=== PATIENT | female | born 1945 | race Caucasian/White ===

== ENCOUNTER → 2020-02-21 07:50 | Outpatient (CLI) | payer MEDICARE, SELFPAY ==
--- NOTE | ~2020-02-21 | MR_ITS ---
EXAMINATION: MR cervical spine wo con DATE: 02/21/2020 08:39 INDICATION: Bilateral arm and leg weakness. Chronic neck pain. TECHNIQUE: Magnetic resonance imaging (MRI) of the cervical spine was performed without intravenous c ontrast. Sequences included sagittal T2-weighted FSE, sagittal T2-weighted FS FSE, sagittal T1-weight ed FSE, axial MERGE and axial T2-weighted FSE. COMPARISON: Cervical spine radiographs dated 10/12/2003 FINDINGS: Bone alignment is normal. Vertebral body heights are normal. Schmorl's node along the superior endpl ate of T7. On the inferior endplate of C2 and at both sides of the C4-C5 disc space. Moderate disc he ight loss at C4-C5 and C5-C6. Mild disc height loss at C3-C4. Fibrovascular degenerative endplate partha nges Cord signal intensity is normal. Cervical soft tissues are unremarkable. The following disc leve ls are specifically discussed: C2-C3: The disc does not extend beyond the endplate margin. There is no uncovertebral joint osteoarth ritis. There is minimal bilateral facet joint osteoarthritis. There is no neural foraminal stenosis. There is no central canal stenosis. C3-C4: Symmetric to the right disc osteophyte complex. There is mild left and moderate right uncovert ebral joint osteoarthritis. There is mild bilateral facet joint osteoarthritis. There is mild left an d moderate right neural foraminal stenosis. There is mild central canal stenosis with flattening of t he right ventral surface of the cord. C4-C5: Disc osteophyte complex. There is severe bilateral uncovertebral joint osteoarthritis. There i s mild bilateral facet joint osteoarthritis. There is moderate bilateral neural foraminal stenosis. T here is moderate central canal stenosis measuring 7-8 mm AP in the mid sagittal plane and indenting t he ventral surface of the cord with effacement of the surrounding CSF signal. C5-C6: Disc osteophyte complex. There is severe bilateral uncovertebral joint osteoarthritis. There i s mild bilateral facet joint osteoarthritis. There is moderate left and moderate to severe right neur al foraminal stenosis. There is mild central canal stenosis measuring 9-10 mm AP in the mid sagittal plane with flattening of the left ventral surface of the cord. C6-C7: Disc is bulging. There is moderate right and mild left uncovertebral joint osteoarthritis. The re is mild bilateral facet joint osteoarthritis. There is mild right and minimal left neural foramina l stenosis. There is mild central canal stenosis. C7-T1: The disc does not extend beyond the endplate margin. There is no uncovertebral joint osteoarth ritis. There is mild right and moderate left facet joint osteoarthritis. There is mild bilateral neur al foraminal stenosis. There is no central canal stenosis. IMPRESSION: 1. Moderate cervical spondylosis. Reviewed, dictated and finalized at location A.
== END ==
PROVIDERS: PCP Family Medicine; Visit Provider Psychiatry & Neurology Neurology
DX: M47.812 Spondylosis without myelopathy or radiculopathy, cervical region (principal)
CPT/HCPCS: 72141

== ENCOUNTER 2020-02-29 09:45 | Observation (INO) | payer MEDICARE, SELFPAY ==
[2020-02-29] VITALS (17 sets, daily range): BP systolic 144–187; BP diastolic 47–66; PULSE 46–72; RESP 14–16; TEMP 36.6–36.9; O2SAT 99–100; BMI 22.5
--- NOTE | ~2020-02-29 | XR_ITS ---
EXAMINATION: XR small bowel follow through DATE: 03/02/2020 12:58 INDICATION: Iron deficiency anemia TECHNIQUE: [employer] radiograph(s) of the abdomen was/were obtained. Oral contrast was administered, and sequential radiographs of the abdomen were obtained until oral contrast was noted to be in the proxi mal colon. Spot fluoroscopic images of the small bowel were obtained. Fluoroscopy exposure time was 3 .0 minutes. The DAP for this procedure was 28.5 Gycm2. COMPARISON: None. FINDINGS: [employer] radiograph demonstrates a vascular stent in the right common iliac vessel. Cholecyste ctomy clips are noted in the right upper quadrant. The bowel gas pattern is normal. Transit time from the stomach to proximal colon was approximately 1.5 hours. There appears to be wall thickening and m ild stricturing of the terminal ileum. There is otherwise normal caliber and mucosal fold pattern thr oughout the small bowel. No tethering or abnormal mass effect observed upon the small bowel with real -time fluoroscopy. IMPRESSION: 1. Possible wall thickening and mild stricturing of the terminal ileum. Reviewed, dictated and finalized at location A.
[2020-02-29 10:09] LABS: Basophils Percent Auto 0.6 % (0.2-1.2); Eosinophils Percent Auto 0.4 % (0-4.4); Hematocrit 23.1 % (37.0-47.0); Hemoglobin 6.1 g/dL (12.0-15.0); Immature Granulocyte Absolute 0.02 K/mm3 (0.00-0.031); Immature Granulocyte Percent A 0.4 % (0-0.5); Immature Platelet Fraction Pct 3.5 % (0.9-11.2); Lymphocytes Absolute Auto 0.58 K/mm3 (0.9-3.2); Lymphocytes Percent Auto 10.8 % (18.3-44.2); Mean Corpuscular HGB Conc 26.4 g/dl (32-36); Mean Corpuscular Hemoglobin 15.8 pg (26-34); Mean Corpuscular Volume 59.7 fl (80-100); Mean Platelet Volume 9.8 fl (7.4-10.4); Monocytes Absolute Auto 0.4 K/mm3 (0.1-0.6); Neutrophils Absolute Auto 4.3 K/mm3 (1.3-6.7); Neutrophils Percent Auto 79.8 % (45.5-73.1); Platelet Count Result 384 k/mm3 (150-375); Red Blood Count 3.87 M/mm3 (4.2-5.4); Red Cell Distribution Width 21.4 % (11.5-14.5); White Blood Count 5.4 K/mm3 (4.5-10.0)
[2020-02-29 10:18] LABS: Helmet Cells 1+ (NORMAL); Hypochromasia 3+ (NORMAL); Ovalocytes 1+ (NORMAL); Polychromasia 1+ (NORMAL); Tear Drop Cells 1+ (NORMAL)
[2020-02-29 10:22] LABS: Alanine Aminotransferase 9 U/L (4-35); Albumin Level 3.8 g/dL (3.5-5.1); Alkaline Phosphatase 63 U/L (38-126); Anion Gap 8 mmol/L (8-16); Aspartate Amino Transferase 26 U/L (14-36); Bilirubin,Total 0.6 mg/dL (0.2-1.3); Blood Urea Nitrogen 12 mg/dL (7-17); Calcium 8.4 mg/dL (8.4-10.2); Carbon Dioxide 21 mmol/L (22-30); Chloride 109 mmol/L (98-107); Estimated CRCL calculation 61 ml/min; Estimated Glomerular Filt Rate > 60; Glucose 139 mg/dL (65-105); INR 1.3; Potassium 4.1 mmol/L (3.4-5.0); Prothrombin Time 15.5 Seconds (11.1-14.7); Sodium 138 mmol/L (137-145)
[2020-02-29 10:23] LABS: Partial Thromboplastin Time 29.8 SECONDS (22.3-36.8)
--- NOTE | 2020-02-29 11:03 | ED.RECABL ---
HPI - Recheck/Abnormal Lab/Rx General Chief Complaint: Recheck/Abnormal Lab/Rx <Celine Pulido PA-C - Last Filed: 02/29/20 12:23> Stated Complaint: low hemoglobin <Celine Pulido PA-C - Last Filed: 02/29/20 12:23> Time Seen by Provider: 02/29/20 10:20 <BEATRICE Lombardo Last Filed: 02/29/20 12:23> Source: patient <Celine Pulido PA-C - Last Filed: 02/29/20 12:23> Mode of arrival: ambulatory <BEATRICE Lombardo Last Filed: 02/29/20 12:23> Limitations: no limitations <Celine Pulido PA-C - Last Filed: 02/29/20 12:23> History of Present Illness HPI narrative: Patient presents with chief complaint of reevaluation of her lab work after her primary care told her that her blood levels were extremely low after having blood work done at [facility] yesterday. Patient's primary care order the blood work because the patient has had diarrhea for the past 2 to 3 weeks with unknown cause. Patient states for 4 days her stools were very dark and heavy but she took Pepto-Bismol so she thought that could possibly be the cause of the darkness. She states that her primary care ordered a stool culture but she is unsure of the result. Patient denies being on any recent antibiotics. Patient states she has also noted over the past 3 weeks she has had fatigue with exertion. She states she can typically mow her lawn and do her housework to completion but she has been having to take breaks in between. Patient denies shortness of breath or chest pain. Patient denies any fever, chills, nausea, vomiting, diarrhea. Patient denies any wounds, injuries or other known sources of infection. She reports she has occasional GI upset for which she takes pantoprazole 40 mg daily. She denies any nausea, vomiting or abdominal pain. Patient reports that the diarrhea was triggered every time she ate or drank something. Patient is on Plavix as she had stent placed in her right iliac in the early part of the year. <Celine Pulido PA-C - Last Filed: 02/29/20 12:23> Related Data Home Medications: Home Medications Medication Instructions Recorded Confirmed alprazolam 0.25 mg PO DAILY 02/29/20 clopidogrel 75 mg PO DAILY 02/29/20 ezetimibe 10 mg PO DAILY 02/29/20 levothyroxine 88 mcg PO DAILY 02/29/20 lisinopril 20 mg PO DAILY 02/29/20 pantoprazole 40 mg PO DAILY 02/29/20 rosuvastatin 20 mg PO DAILY 02/29/20 <Celine Pulido PA-C - Last Filed: 02/29/20 12:23> Allergies/Adverse Reactions: Allergies Allergy/AdvReac Type Severity Reaction Status Date / Time No Known Allergies Allergy Unknown Verified 02/29/20 09:52 <Celine Pulido PA-C - Last Filed: 02/29/20 12:23> Review of Systems Review of Systems: Narrative: CONSTITUTIONAL: Reports fatigue with exertion denies fever, chills, or sweats. EYES: Denies visual changes, redness, or discharge. ENT: Denies rhinorrhea, congestion, sore throat, or otalgia. CARDIOVASCULAR: Denies chest pain, palpitations, or edema. RESPIRATORY: Denies cough or dyspnea. GASTROINTESTINAL: Reports diarrhea denies abdominal pain, nausea, vomiting GENITOURINARY: Denies dysuria or hematuria. SKIN: Denies rash or itching. MUSCULOSKELETAL: Denies back pain, joint pain, or myalgia. NEUROLOGIC: Denies headache, numbness, dizziness <Celine Pulido PA-C - Last Filed: 02/29/20 12:23> Exam Narrative: Exam Narrative: GENERAL: Well-appearing, well-nourished, and in no acute distress. Patient speaking in complete sentences and does not appear pale or toxic in appearance. HEAD: Normocephalic, atraumatic. EYES: PERRLA and EOMI. ENT: Nares clear, no rhinorrhea or epistaxis. Mucous membranes moist. Oropharynx without tonsillar hypertrophy exudate or other lesions. Bilateral TMs pearly alberts nonbulging NECK: Supple. No adenopathy or masses. CHEST: Clear to auscultation. No respiratory distress. No wheezes rales or rhonchi. No tachypnea or labored breathing. HEART: Regular rate and
--- NOTE | 2020-02-29 11:16 | PC.NURSE ---
Patient tolerated orthostatic vitals well.
[2020-02-29] MEDS: PANTOPRAZOLE SODIUM IV 40 MG VIAL IV PUSH (11:54)
[2020-02-29] MEDS: SODIUM CHLORIDE 0.9% IV 1,000 ML 125 ML IV CONT (11:54)
[2020-02-29 12:00] LABS: Add Urine Microscopic? YES; Appearance Urine Clear (Clear); Bilirubin Urine Negative (Negative); Blood Urine Negative (Negative); Color Urine Yellow (Yellow); Glucose Urine UA Negative (Negative); Ketones Urine Negative (Negative); Leukocyte Esterase Ur Negative LEU/UL (Negative); Nitrate Urine Negative (Negative); Protein Urine Negative (Negative); RBC Urine 0-2 /hpf (0-2); Specific Grav Ur 1.015 (1.001-1.035); Squamous Epithelial Cell Urine Rare /hpf (Few); WBC Urine 0-3 /hpf
--- NOTE | 2020-02-29 12:10 | PC.NURSE ---
This patient, Siobhan Solomon, was admitted to [facility] Surg Room 313-01. Patient/family oriented to hospital policies and general routines including ID bracelet, bed and alarms, visiting hours, pain management, procedures, bathroom and other care routines, personal items, smoking policy, room service/diet, and visiting hours. Valuables list has been completed. Report received from Nafisa TAYLOR. Information on how to activate the Rapid Response Team has been discussed. Patient/Family are encouraged to report perceived risks to care and to ask questions if they do not understand what they are told or what they should do.
[2020-02-29] MEDS: SODIUM CHLORIDE 0.9% IV 250 ML 30 ML IV CONT (13:04)
--- NOTE | 2020-02-29 22:00 | PM.IMHP ---
H&P: HPI History of Present Illness Date/Time: 02/29/20 22:00 Chief complaint: Anemia of unknown cause Narrative: This is a pleasant 74 year old female with known history of peripheral vascular disease, HTN, hyperlipidemia who presented to the hospital after being referred by her PCP to have her labs checked. The patient has been seeing her PCP secondary to 3 weeks of diarrhea that initially started out as 4 days of severe diarrhea which improved with antidiarrheal agents but has continued. She has had stool studies done at her PCPs office and she was referred to the hospital after they found on routine labs that her H/H were low. The patient has felt fatigued, generalized weakness, and lightheaded but she had attributed these symptoms to her ongoing diarrhea. She has not been on antibiotics recently and denies any vomiting, black stools, or bright red rectal bleeding. She takes aspirin and plavix but no blood thinners. The patient was evaluated in the ER today and found to have an H/H of 6.1 and 23.1. She has already been transfused 2 units of pRBCs and on my encounter with her she states that she already feels much better. She has no other complaints at this time and denies any chest pain, shortness of breath, passing out, dizziness, headache, fevers, cough, abdominal pain, dysuria, or focal neurological deficits. She has no previous history of GI bleeding. Her last endoscopy was 10 years ago and her last colonoscopy was 3 years ago. Review of Systems Review of Systems: All systems reviewed & are unremarkable except as noted in HPI and below PMFSH Past Medical History Medical History HTN (hypertension) with goal to be determined Hyperlipidemia Hypothyroidism Peripheral vascular disease Surgical History Surgical History History of laparoscopic cholecystectomy Family History Family History Mother Liver cancer Father Alcohol abuse Cardiovascular disease Social History Social History Smoking packs per day: 0.25 Smoking cigarettes per day: 5.0 Years smoked: 55 Smoking pack-years: 13.75 Smoking status: Current every day smoker Tobacco type: cigarettes Second hand tobacco smoke exposure: Yes Alcohol intake: never Substance use: never Gender identity (if verbalized by the patient): Male Spiritual care concerns: No Meds Home Medications and Allergies Home Medications Medication Instructions Recorded Confirmed Type alprazolam 0.25 mg PO DAILY 02/29/20 02/29/20 History clopidogrel 75 mg PO DAILY 02/29/20 02/29/20 History ezetimibe 10 mg PO DAILY 02/29/20 02/29/20 History levothyroxine 88 mcg PO DAILY 02/29/20 02/29/20 History lisinopril 20 mg PO DAILY 02/29/20 02/29/20 History pantoprazole 40 mg PO DAILY 02/29/20 02/29/20 History rosuvastatin 20 mg PO DAILY 02/29/20 02/29/20 History Allergies Allergy/AdvReac Type Severity Reaction Status Date / Time No Known Allergies Allergy Unknown Verified 02/29/20 09:52 Vital Signs Vital Signs - 24 hr 02/29/20 09:47 02/29/20 11:06 02/29/20 11:16 Temperature 36.6 C Pulse Rate 60 60 72 Respiratory Rate 16 14 Blood Pressure 173/49 H 144/53 H 158/52 H Pulse Oximetry 100 100 02/29/20 11:42 02/29/20 12:00 02/29/20 12:10 Temperature 36.9 C 36.8 C Pulse Rate 54 L 60 52 L Respiratory Rate 16 16 16 Blood Pressure 156/53 H 144/53 H 187/47 H Pulse Oximetry 99 100 100 02/29/20 13:10 02/29/20 13:25 02/29/20 14:25 Temperature 36.9 C 36.9 C 36.8 C Pulse Rate 55 L 51 L 53 L Respiratory Rate 16 16 16 Blood Pressure 158/47 H 170/60 H 170/62 H Pulse Oximetry 100 100 100 02/29/20 15:25 02/29/20 16:00 02/29/20 16:24 Temperature 36.8 C 36.8 C 36.8 C Pulse Rate 50 L 49 L 49 L Respiratory Rate 16 16 16 Blood Pressure 170/6
[2020-02-29 22:20] LABS: Hematocrit 29.5 % (37.0-47.0); Hemoglobin 8.7 g/dL (12.0-15.0)
[2020-02-29] MEDS: SODIUM CHLORIDE 0.9% IV 1,000 ML 100 ML IV CONT (23:38)
[2020-03-01] MEDS: LEVOTHYROXINE SODIUM 88 MCG TABLET PO (05:50)
[2020-03-01 06:00] VITALS: BP 173/60; PULSE 54; RESP 16; TEMP 36.2; O2SAT 97
[2020-03-01] MEDS: SODIUM CHLORIDE 0.9% IV 1,000 ML 100 ML IV CONT ×2 (06:00→18:33)
[2020-03-01 07:06] LABS: Basophils Percent Auto 0.8 % (0.2-1.2); Eosinophils Absolute Auto 0.1 K/mm3 (0-0.3); Eosinophils Percent Auto 1.7 % (0-4.4); Hematocrit 30.9 % (37.0-47.0); Hemoglobin 9.1 g/dL (12.0-15.0); Immature Granulocyte Absolute 0.01 K/mm3 (0.00-0.031); Immature Granulocyte Percent A 0.2 % (0-0.5); Immature Platelet Fraction Pct 3.4 % (0.9-11.2); Lymphocytes Absolute Auto 0.65 K/mm3 (0.9-3.2); Lymphocytes Percent Auto 12.5 % (18.3-44.2); Mean Corpuscular HGB Conc 29.4 g/dl (32-36); Mean Corpuscular Hemoglobin 19.4 pg (26-34); Mean Corpuscular Volume 65.9 fl (80-100); Monocytes Absolute Auto 0.5 K/mm3 (0.1-0.6); Monocytes Percent Auto 8.6 % (2.6-8.5); Neutrophils Percent Auto 76.2 % (45.5-73.1); Platelet Count Result 298 k/mm3 (150-375); Red Blood Count 4.69 M/mm3 (4.2-5.4); Red Cell Distribution Width 27.5 % (11.5-14.5); White Blood Count 5.2 K/mm3 (4.5-10.0)
[2020-03-01 07:12] LABS: Anion Gap 4 mmol/L (8-16); Blood Urea Nitrogen 9 mg/dL (7-17); Calcium 8.1 mg/dL (8.4-10.2); Carbon Dioxide 23 mmol/L (22-30); Chloride 113 mmol/L (98-107); Estimated CRCL calculation 53 ml/min; Estimated Glomerular Filt Rate > 60; Glucose 81 mg/dL (65-105); Lactate Dehydrogenase 256 U/L (313-618); Potassium 4.2 mmol/L (3.4-5.0); Sodium 140 mmol/L (137-145)
[2020-03-01 07:21] LABS: Immature Reticulocyte Fraction 7.1 % (3.0-15.9); Reticulocyte Hemoglobin Conten 15.4 pg (28.2-35.7); Reticulocyte Percent 0.39 % (0.7-4.3); Reticulocytes Absolute 0.02 B/L (32.2-175.7)
[2020-03-01 08:03] LABS: Platelet Estimate Adequate (Adequate)
[2020-03-01 08:04] LABS: Anisocytosis 1+ (NORMAL); Helmet Cells 1+ (NORMAL); Hypochromasia 2+ (NORMAL); Ovalocytes 2+ (NORMAL); Target Cells 1+ (NORMAL); Tear Drop Cells 1+ (NORMAL)
[2020-03-01 08:06] LABS: Iron 32 ug/dL (37-170)
[2020-03-01 08:16] LABS: Percent Iron Saturation 8 % (20-50)
[2020-03-01 08:17] LABS: Folic Acid 10.9 ng/mL (2.76->20)
[2020-03-01] MEDS: lisinopriL 20 MG TABLET PO (08:27)
[2020-03-01] MEDS: ALPRAZolam 0.25 MG TABLET PO (08:27)
[2020-03-01] MEDS: EZETIMIBE 10 MG TABLET PO (08:27)
[2020-03-01] MEDS: PANTOPRAZOLE 40 MG TABLET PO (08:27)
[2020-03-01] MEDS: ROSUVASTATIN 10 MG TABLET 20 MG PO (08:28)
[2020-03-01 08:42] LABS: Ferritin 6.34 ng/mL (11.1-264)
--- NOTE | 2020-03-01 10:11 | WPDGICN ---
Assessment and Plan Assessment and plan (1) GALINA (iron deficiency anemia): Code(s): D50.9 - Iron deficiency anemia, unspecified Status: Acute Assessment and Plan: Patient with profound iron deficiency anemia. No obvious GI bleeding identified. Plan is to guaiac stools. Iron replacement will be started after endoscopy. Colonoscopy anticipated tomorrow after preparation today. Further recommendations subsequently. Continue monitor hemoglobin while an inpatient. (2) Diarrhea: Qualifiers: Diarrhea type: unspecified type Qualified Code(s): R19.7 - Diarrhea, unspecified Code(s): R19.7 - Diarrhea, unspecified Status: Chronic Assessment and Plan: Ongoing diarrhea for 3 weeks. Etiology unclear. Stool cultures advised. Continue to monitor intake and output. Colonoscopy will assess for diarrhea as well. GI Consult Note Consult date/time: 03/01/20 10:11 HPI: Siobhan Solomon is a 74 year old female Seen in evaluation at the request of the emergency room. Patient reports diarrhea for the last several weeks period is been an ongoing issue. Apparently had routine lab testing found to have anemia. Patient denies any obvious blood loss. Her current weight appetite are normal. Loose stools has persisted for at least 3 weeks. She denies any bruising no blood in her urine no nose bleeds. Her stools are normal color. Last colonoscopy was perhaps 10 years ago. She does note occasional epigastric discomfort. In occasional dysphagia with food can't she in this area. Family history is noncontributory. Review of Systems Review of Systems: All systems reviewed & are unremarkable except as noted in HPI and below PMFSH Past Medical History Medical History HTN (hypertension) with goal to be determined Hyperlipidemia Hypothyroidism Peripheral vascular disease Surgical History Surgical History History of laparoscopic cholecystectomy Family History Family History Mother Liver cancer Father Alcohol abuse Cardiovascular disease Social History Social History Smoking packs per day: 0.25 Smoking cigarettes per day: 5.0 Years smoked: 55 Smoking pack-years: 13.75 Smoking status: Current every day smoker Tobacco type: cigarettes Second hand tobacco smoke exposure: Yes Alcohol intake: never Substance use: never Gender identity (if verbalized by the patient): Male Spiritual care concerns: No Meds Home Medications and Allergies Home Medications Medication Instructions Recorded Confirmed Type alprazolam 0.25 mg PO DAILY 02/29/20 02/29/20 History clopidogrel 75 mg PO DAILY 02/29/20 02/29/20 History ezetimibe 10 mg PO DAILY 02/29/20 02/29/20 History levothyroxine 88 mcg PO DAILY 02/29/20 02/29/20 History lisinopril 20 mg PO DAILY 02/29/20 02/29/20 History pantoprazole 40 mg PO DAILY 02/29/20 02/29/20 History rosuvastatin 20 mg PO DAILY 02/29/20 02/29/20 History Allergies Allergy/AdvReac Type Severity Reaction Status Date / Time No Known Allergies Allergy Unknown Verified 02/29/20 09:52 Vital Signs Vital Signs - 24 hr 02/29/20 11:06 02/29/20 11:16 02/29/20 11:42 Temperature 98.4 F Pulse Rate 60 72 54 L Respiratory Rate 14 16 Blood Pressure 144/53 H 158/52 H 156/53 H Pulse Oximetry 100 99 02/29/20 12:00 02/29/20 12:10 02/29/20 13:10 Temperature 98.3 F 98.4 F Pulse Rate 60 52 L 55 L Respiratory Rate 16 16 16 Blood Pressure 144/53 H 187/47 H 158/47 H Pulse Oximetry 100 100 100 02/29/20 13:25 02/29/20 14:25 02/29/20 15:25 Temperature 98.5 F 98.3 F 98.3 F Pulse Rate 51 L 53 L 50 L Respiratory Rate 16 16 16 Blood Pressure 170/60 H 170/62 H 170/64 H Pulse Oximetry 100 100 100 02/29/20 16:00 02/29/20 16:24
[2020-03-01] MEDS: PEG (High)/E-LYTE SOLN 4,000 ML BTL 4000 ML PO (12:35)
[2020-03-01] MEDS: CYANOCOBALAMIN INJ 1,000 MCG/ML VIAL 1000 MCG IM (12:35)
[2020-03-01] MEDS: LACTATED RINGERS 1,000 ML 150 ML IV CONT (12:42)
[2020-03-01 14:00] VITALS: BP 130/62; PULSE 60; RESP 18; TEMP 36.7; O2SAT 98
[2020-03-01 20:00] VITALS: PULSE 60; RESP 18; O2SAT 98
[2020-03-01 22:00] VITALS: BP 165/65; PULSE 47; RESP 16; TEMP 36.6; O2SAT 94
--- NOTE | 2020-03-01 22:28 | PM.IMPN ---
Progress Note: A&P Assessment and Plan (1) Symptomatic anemia: Code(s): D64.9 - Anemia, unspecified Status: Acute Assessment and Plan: Holding antiplatelet agents. The patient has already been transfused 2 units of pRBC s. iron studies compatible with iron deficiency anemia and has microcytosis. But B12 is also low and will replenish IV iron 300 mg daily for 3 days EGD and colonoscopy 03/02. (2) Diarrhea: Qualifiers: Diarrhea type: unspecified type Qualified Code(s): R19.7 - Diarrhea, unspecified Code(s): R19.7 - Diarrhea, unspecified Status: Chronic Assessment and Plan: The patient has had diarrhea for the past 3 weeks. She reports that her PCP has already tested her for C. diff colitis. Check stool culture, stool WBC. IV fluids. and GI evaluating (3) Thrombocytosis: Code(s): D47.3 - Essential (hemorrhagic) thrombocythemia Status: Acute Assessment and Plan: Monitor platelets. (4) HTN (hypertension) with goal to be determined: Code(s): I10 - Essential (primary) hypertension Status: Chronic Assessment and Plan: Resume lisinopril. and bp good today (5) Hyperlipidemia: Qualifiers: Hyperlipidemia type: unspecified Qualified Code(s): E78.5 - Hyperlipidemia, unspecified Code(s): E78.5 - Hyperlipidemia, unspecified Status: Chronic Assessment and Plan: Continue Crestor PO. (6) Hypothyroidism: Qualifiers: Hypothyroidism type: unspecified Qualified Code(s): E03.9 - Hypothyroidism, unspecified Code(s): E03.9 - Hypothyroidism, unspecified Status: Chronic Assessment and Plan: Continue Levothyroxine PO. (7) Peripheral vascular disease: Code(s): I73.9 - Peripheral vascular disease, unspecified Status: Chronic Assessment and Plan: Resume antiplatelet agents when appropriate. Subjective Date/time seen: 03/01/20 22:28 Interval history: date of visit 03/01. 74-year-old hypertensive white female admitted with some fatigue and iron deficiency anemia. Has had diarrhea recently that has improved but no evidence of any blood loss. seen by GI and EGD and colon Scheduled for a.m. 03/02 Exam Narrative: Exam Narrative: blood pressure 130/62 pulse 62 saturating 98% on room air afebrile pupil equal reactive to light sclera anicteric neck supple no adenopathy lungs clear CV regular rate rhythm abdomen soft nontender extremities without edema distal pulses 1+ neuro alert cooperative pleasant no focal deficits Objective Data Vital Signs Vital Signs: Vital Signs - 24 hr 03/01/20 06:00 03/01/20 14:00 03/01/20 20:00 Temperature 36.2 C L 36.7 C Pulse Rate 54 L 60 60 Respiratory Rate 16 18 18 Blood Pressure 173/60 H 130/62 Pulse Oximetry 97 98 98 Intake/Output Intake/Output: Intake & Output 02/27/20 02/28/20 02/29/20 03/01/20 23:59 23:59 23:59 23:59 Intake Total 1271 2470 Output Total 3100 Balance 1271 -630 Meds/Results Medications: Active Medications Generic Name Dose Route Start Last Admin Trade Name Freq PRN Reason Stop Dose Admin Alprazolam 0.25 mg 03/01/20 09:00 03/01/20 08:27 Xanax PO 0.25 mg DAILY JOHN Administration Ezetimibe 10 mg 03/01/20 09:00 03/01/20 08:27 Zetia PO 10 mg DAILY JOHN Administration Hydralazine HCl 10 mg 02/29/20 21:58 Apresoline Hcl Inj IV PUSH 03/02/20 07:00 Q8H PRN see comment Iron Sucrose 300 mg/ Sodium 115 mls @ 76.667 mls/hr 03/01/20 09:45 03/01/20 10:53 Chloride IVPB 03/03/20 10:00 76.7 mls/hr DAILY JOHN Administration Lactated Ringer's 1,000 mls @ 150 mls/hr 03/01/20 11:00 03/01/20 18:36 Lr - Lactated Ringers Iv IV CONT 150 mls/hr .[id number] JOHN Infusion Levothyroxine Sodium 88 mcg 03/01/20 06:30 03/01/20 05:50 Synthroid PO 88 mcg DAILY@0630 JOHN Administration Lisinopril 20 mg 03/01/20 09:00 03/01/20 08:27
[2020-03-02] VITALS (8 sets, daily range): BP systolic 120–181; BP diastolic 42–97; PULSE 45–76; RESP 16–24; TEMP 36.6–36.9; O2SAT 93–99; BMI 22.5
[2020-03-02] MEDS: LACTATED RINGERS 1,000 ML 150 ML IV CONT ×2 (04:17→08:06)
[2020-03-02 06:51] LABS: Basophils Absolute Auto 0.1 K/mm3 (0.0-0.1); Basophils Percent Auto 0.7 % (0.2-1.2); Eosinophils Absolute Auto 0.1 K/mm3 (0-0.3); Eosinophils Percent Auto 1.4 % (0-4.4); Hematocrit 31.8 % (37.0-47.0); Hemoglobin 9.2 g/dL (12.0-15.0); Immature Granulocyte Absolute 0.04 K/mm3 (0.00-0.031); Immature Granulocyte Percent A 0.6 % (0-0.5); Immature Platelet Fraction Pct 4.4 % (0.9-11.2); Lymphocytes Absolute Auto 0.84 K/mm3 (0.9-3.2); Lymphocytes Percent Auto 11.6 % (18.3-44.2); Mean Corpuscular HGB Conc 28.9 g/dl (32-36); Mean Corpuscular Hemoglobin 18.9 pg (26-34); Mean Corpuscular Volume 65.2 fl (80-100); Mean Platelet Volume 9.6 fl (7.4-10.4); Monocytes Absolute Auto 0.6 K/mm3 (0.1-0.6); Monocytes Percent Auto 7.7 % (2.6-8.5); Neutrophils Absolute Auto 5.7 K/mm3 (1.3-6.7); Platelet Count Result 282 k/mm3 (150-375); Red Blood Count 4.88 M/mm3 (4.2-5.4); Red Cell Distribution Width 27.9 % (11.5-14.5); White Blood Count 7.2 K/mm3 (4.5-10.0)
[2020-03-02 07:14] LABS: Anion Gap 6 mmol/L (8-16); Blood Urea Nitrogen 5 mg/dL (7-17); Calcium 8.4 mg/dL (8.4-10.2); Carbon Dioxide 22 mmol/L (22-30); Chloride 110 mmol/L (98-107); Estimated CRCL calculation 61 ml/min; Estimated Glomerular Filt Rate > 60; Glucose 77 mg/dL (65-105); Potassium 3.7 mmol/L (3.4-5.0); Sodium 138 mmol/L (137-145)
[2020-03-02 07:34] LABS: Anisocytosis 1+ (NORMAL); Hypochromasia 1+ (NORMAL); Large Platelets Present; Platelet Estimate Adequate (Adequate); Poikilocytosis 1+ (NORMAL)
[2020-03-02 07:35] LABS: Helmet Cells 1+ (NORMAL); Ovalocytes 1+ (NORMAL); Target Cells 1+ (NORMAL)
--- NOTE | 2020-03-02 07:45 | PC.NURSE ---
To GI Lab per [ ], IV [ ]. Report given to [ ].
--- NOTE | 2020-03-02 07:45 | PC.NURSE ---
To GI Lab per kunal IV on standby.
--- NOTE | 2020-03-02 08:17 | WPDANESEPPF ---
Anes - Initial Pre Proc Eval Procedure: Operation Date: 03/02/20 08:30 Proposed Procedures p Esophagogastroduodenoscopy & Colonoscopy - Surya Salazar MD Date/Time: 03/02/20 08:17 Surgeon: Marcie Morillo MD Pre Op Diagnosis: Anemia of unknown cause Patient Data Age: 74 Gender: F Height: 5 ft 4 in Weight: 59.5 kg Last Vital Signs Temp 98.0 F 03/02/20 07:55 Pulse 57 L 03/02/20 07:55 Resp 16 03/02/20 07:55 BP 181/63 H 03/02/20 07:55 Pulse Ox 99 03/02/20 07:57 Allergies Allergy/AdvReac Type Severity Reaction Status Date / Time No Known Allergies Allergy Unknown Verified 03/02/20 07:54 Home Medications Medication Instructions Recorded Confirmed Type alprazolam 0.25 mg PO DAILY 02/29/20 02/29/20 History clopidogrel 75 mg PO DAILY 02/29/20 02/29/20 History ezetimibe 10 mg PO DAILY 02/29/20 02/29/20 History levothyroxine 88 mcg PO DAILY 02/29/20 02/29/20 History lisinopril 20 mg PO DAILY 02/29/20 02/29/20 History pantoprazole 40 mg PO DAILY 02/29/20 02/29/20 History rosuvastatin 20 mg PO DAILY 02/29/20 02/29/20 History Laboratory Tests 03/01/20 03/01/20 03/02/20 06:36 06:36 06:16 WBC 7.2 K/mm3 K/mm3 (4.5-10.0) RBC 4.88 M/mm3 M/mm3 (4.2-5.4) Hgb 9.2 g/dL L g/dL (12.0-15.0) Hct 31.8 % L % (37.0-47.0) MCV 65.2 fl L fl (80-100) MCH 18.9 pg L pg (26-34) MCHC 28.9 g/dl L g/dl (32-36) RDW 27.9 % H % (11.5-14.5) Plt Count 282 k/mm3 k/mm3 (150-375) MPV 9.6 fl fl (7.4-10.4) Immature Gran % (Auto) 0.6 % H % (0-0.5) Neut % (Auto) 78.0 % H % (45.5-73.1) Lymph % (Auto) 11.6 % L % (18.3-44.2) Cooper % (Auto) 7.7 % % (2.6-8.5) Eos % (Auto) 1.4 % % (0-4.4) Baso % (Auto) 0.7 % % (0.2-1.2) Lymph # (Auto) 0.84 K/mm3 L K/mm3 (0.9-3.2) Cooper # (Auto) 0.6 K/mm3 K/mm3 (0.1-0.6) Eos # (Auto) 0.1 K/mm3 K/mm3 (0-0.3) Baso # (Auto) 0.1 K/mm3 K/mm3 (0.0-0.1) Abs Immat Gran (auto) 0.04 K/mm3 H K/mm3 (0.00-0.031) Absolute Neuts (auto) 5.7 K/mm3 K/mm3 (1.3-6.7) Absolute Nucleated RBC 0.0 K/mm3 K/mm3 (0.0-0.012) Nucleated RBC % 0.0 % % (0.0-0.2) Platelet Estimate Adequate (Adequate) Large Platelets Present % Immature Plt Fraction 4.4 % % (0.9-11.2) Hypochromasia 1+ (NORMAL) Poikilocytosis 1+ (NORMAL) Anisocytosis 1+ (NORMAL) Target Cells 1+ (NORMAL) Ovalocytes 1+ (NORMAL) Helmet Cells 1+ (NORMAL) Sodium Potassium Chloride Carbon Dioxide Anion Gap BUN Creatinine Estim Creat Clear Calc Estimated GFR Glucose Calcium % Saturation 8 % L % (20-50) Ferritin 6.34 ng/mL L ng/mL (11.1-264) Vitamin B12 232.0 pg/mL L pg/mL (239-931) Folate 10.9 ng/mL ng/mL (2.76->20) TSH (Reflex) 3.450 uIU/mL uIU/mL (0.465-4.68) 03/02/20 06:16 WBC RBC Hgb Hct MCV MCH MCHC RDW Plt Count MPV Immature Gran % (Auto) Neut % (Auto) Lymph % (Auto) Cooper % (Auto) Eos % (Auto) Baso % (Auto) Lymph # (Auto) Cooper # (Auto) Eos # (Auto) Baso # (Auto) Abs Immat Gran (auto) Absolute Neuts (auto) Absolute Nucleated RBC Nucleated RBC % Platelet Estimate Large Platelets % Immature Plt Fraction Hypochromasia Poikilocytosis Anisocytosis Target Cells Ovalocytes Helmet Cells Sodium 138 mmol/L mmol/L (137-145) Potassium 3.7 mmol/L mmol/L (3.4-5.0) Ch
--- NOTE | 2020-03-02 09:24 | SUR.OPER ---
EGD COMPLETED AT 919, COLONOSCOPY STARTED AT 923.
[2020-03-02] MEDS: SIMETHICONE ORAL SUSPENSION 20 MG/0.3 ML 30 ML BOTTLE 0.6 ML PO (09:31)
--- NOTE | 2020-03-02 10:40 | PC.NURSE ---
Returned from GI Lab. a/o x3 resp even and unlabored. no c/o's.
[2020-03-02] MEDS: ALPRAZolam 0.25 MG TABLET PO (12:57)
[2020-03-02] MEDS: EZETIMIBE 10 MG TABLET PO (12:57)
[2020-03-02] MEDS: ROSUVASTATIN 10 MG TABLET 20 MG PO (12:58)
[2020-03-02] MEDS: lisinopriL 20 MG TABLET PO (12:58)
[2020-03-02] MEDS: PANTOPRAZOLE 40 MG TABLET PO (12:58)
--- NOTE | 2020-03-02 16:40 | PM.DS ---
DS: Admitting Diagnosis Admitting Diagnosis Admitting Diagnosis: Anemia of unknown cause DS: Discharge Diagnosis Discharge Diagnosis (1) Symptomatic anemia: Code(s): D64.9 - Anemia, unspecified Status: Acute Assessment and Plan: Hgb 6.1 on admission. We held antiplatelet agents. The patient was transfused 2 units of pRBCs. Iron studies compatible with iron deficiency anemia and has microcytosis. B12 level also is low and was replaced. She did receive IV iron. EGD was normal. Colonoscopy showed internal hemorrhoids and diverticulosis. SBFT showed possible terminal ileum stricture but nothing by colonoscopy per GI. Celiac testing as outpatient. (2) Diarrhea: Qualifiers: Diarrhea type: unspecified type Qualified Code(s): R19.7 - Diarrhea, unspecified Code(s): R19.7 - Diarrhea, unspecified Status: Chronic Assessment and Plan: The patient has had diarrhea for the past 3 weeks. She reports that her PCP has already tested her for C. diff colitis. We requested results but none forth coming. She will foloow up with GI for the diarrhea. (3) HTN (hypertension) with goal to be determined: Code(s): I10 - Essential (primary) hypertension Status: Chronic Assessment and Plan: BP monitored closely. BP elevated at times. We resumed lisinopril. (4) Hyperlipidemia: Qualifiers: Hyperlipidemia type: unspecified Qualified Code(s): E78.5 - Hyperlipidemia, unspecified Code(s): E78.5 - Hyperlipidemia, unspecified Status: Chronic Assessment and Plan: LFTs okay. We continued Crestor (5) Hypothyroidism: Qualifiers: Hypothyroidism type: unspecified Qualified Code(s): E03.9 - Hypothyroidism, unspecified Code(s): E03.9 - Hypothyroidism, unspecified Status: Chronic Assessment and Plan: TSH normal. We continued Levothyroxine (6) Peripheral vascular disease: Code(s): I73.9 - Peripheral vascular disease, unspecified Status: Chronic Assessment and Plan: Stable. Will resume antiplatelet agents since no obvious source of blood loss. DS: Summary Hospital Course Reason for hospitalization: 74yo female here for weakness and diarrhea and found to have anemia. Please see H&P for details. Hospital Course: As above Time Spent with Patient Time attestation: Total time spent providing and/or coordinating discharge services:32 minutes Time spent: Greater than 30 minutes Exam Narrative: Exam Narrative: AF 98.5 145/55 53 18 93% Gen - NARD Chest - CTA bilaterally, nml RR CV - RRR S1/S2 Abf - soft, NT/ND, +BS Ext - no edema Psych - nml mood and affect Skin - warm and dry DS: Data Data Completed and Pending Labs on day of discharge: Labs from last 24 hours 03/02/20 03/02/20 06:16 06:16 WBC 7.2 RBC 4.88 Hgb 9.2 L Hct 31.8 L MCV 65.2 L MCH 18.9 L MCHC 28.9 L RDW 27.9 H Plt Count 282 MPV 9.6 Immature Gran % (Auto) 0.6 H Neut % (Auto) 78.0 H Lymph % (Auto) 11.6 L [place] % (Auto) 7.7 Eos % (Auto) 1.4 Baso % (Auto) 0.7 Lymph # (Auto) 0.84 L [place] # (Auto) 0.6 Eos # (Auto) 0.1 Baso # (Auto) 0.1 Abs Immat Gran (auto) 0.04 H Absolute Neuts (auto) 5.7 Absolute Nucleated RBC 0.0 Nucleated RBC % 0.0 Platelet Estimate Adequate Large Platelets Present % Immature Plt Fraction 4.4 Hypochromasia 1+ Poikilocytosis 1+ Anisocytosis 1+ Target Cells 1+ Ovalocytes 1+ Helmet Cells 1+ Sodium 138 Potassium 3.7 Chloride 110 H Carbon Dioxide 22 Anion Gap 6 L BUN 5 L Creatinine 0.60 L Estim Creat Clear Calc 61 Estimated GFR > 60 Glucose 77 Calcium 8.4 Discharge Plan Discharge Attending physician on discharge: Carrington Araya Consulting providers: Celine Pulido ; Carrington Araya ; Surya Salazar Discharging Clinician: Carrington Araya Anticipate
[2020-03-02] MEDS: FERROUS SULFATE 324 MG TABLET PO (17:12)
[2020-03-05 16:47] LABS: Haptoglobin 152 mg/dL (43-212)
== END 2020-03-02 18:20 | disposition home or self-care (01) ==
LOC: ANHED 11:10 → ANH3MEDSUR 14:27
PROVIDERS: Family Medicine; Internal Medicine; Internal Medicine Gastroenterology; Physician Assistant; Admitting Provider Family Medicine; Emergency Provider Emergency Medicine; PCP Family Medicine; Visit Provider Internal Medicine
PROC: 0DJ08ZZ Inspection of Upper Intestinal Tract, Via Natural or Artificial Opening Endoscopic (ICD-10-PCS; CPT 43235; principal; 2020-03-02 08:30)
DX: D50.9 Iron deficiency anemia, unspecified (principal); R19.7 Diarrhea, unspecified; K64.8 Other hemorrhoids; K57.30 Diverticulosis of large intestine without perforation or abscess without bleeding; D47.3 Essential (hemorrhagic) thrombocythemia; I10 Essential (primary) hypertension; E78.5 Hyperlipidemia, unspecified; E03.9 Hypothyroidism, unspecified; I73.9 Peripheral vascular disease, unspecified; F17.210 Nicotine dependence, cigarettes, uncomplicated; Z79.02 Long term (current) use of antithrombotics/antiplatelets; Z79.82 Long term (current) use of aspirin
CPT/HCPCS: 43235; 45378; 36415; 36430; 74250; 80048; 80053; 81001; 82607; 82728; 82746; 83010; 83540; 83550; 83615; 84443; 85014; 85018; 85025; 85046; 85055; 85610; 85730; 86850; 86900; 86901; 86920; 96361; 96365; 96366; 96372; 96374; 96375; 99285; A9270; C9113; G0378; J1756; J2704; J3420; J7030; J7050; J7120; P9016

== ENCOUNTER → 2021-02-28 15:04 | Outpatient (CLI) | payer MEDICARE, SELFPAY ==
--- NOTE | ~2021-02-28 | MM_ITS ---
EXAMINATION: MM screening [facility] BI w carlo HISTORY: Screening TECHNIQUE: Craniocaudal and mediolateral oblique 3-D tomosynthesis images were obtained and synthetic 2-D images were generated. CAD analysis was submitted and interpreted. COMPARISON: Comparison to multiple prior studies sequentially, with oldest reviewed study dated 06/01. BREAST PARENCHYMAL COMPOSITION: There are scattered areas of fibroglandular density. FINDINGS: There is no evidence of suspicious mass, calcification, or architectural distortion to sugg est malignancy in either breast. There has been no suspicious interval change. IMPRESSION: 1. No mammographic evidence of malignancy. 2. Recommend routine screening mammography in one year. BI-RADS Category 1: Negative Reviewed, dictated and finalized at location A.
== END ==
PROVIDERS: PCP Family Medicine; Visit Provider Family Medicine
DX: Z12.31 Encounter for screening mammogram for malignant neoplasm of breast (principal)
CPT/HCPCS: 77063; 77067

== ENCOUNTER → 2022-03-07 09:48 | Outpatient (CLI) | payer MEDICARE, SELFPAY ==
--- NOTE | ~2022-03-07 | MMUS_ITS ---
EXAMINATION: MM diagnostic [facility] BI w carlo, US breast LT complete HISTORY: Left nipple retraction for 5 to 6 months TECHNIQUE: ML, MLO and CC 3-D tomosynthesis images of both breasts were performed and synthetic 2-D i mages were generated. CAD analysis was submitted and interpreted. High resolution complete left breas t ultrasound including all 4 quadrants and subareolar area was performed. COMPARISON: 02/28/2021, 07/17/2019, 12/21/2017 bilateral screening mammogram examinations BREAST PARENCHYMAL COMPOSITION: There are scattered areas of fibroglandular density. FINDINGS: MAMMOGRAPHIC FINDINGS: No suspicious mass or architectural distortion, malignant calcification, skin thickening or retractio n or significant new or developing density is detected. ULTRASOUND: No suspicious mass, shadowing, cyst or other significant abnormality of the left breast is noted. IMPRESSION: 1. No mammographic evidence of malignancy 2. Routine annual mammographic screening is recommended BI-RADS Category 1: Negative Reviewed, dictated and finalized at location A. IMPRESSION: 1. No mammographic evidence of malignancy 2. Routine annual mammographic screening is recommended BI-RADS Category 1: Negative
== END ==
PROVIDERS: PCP Family Medicine; Visit Provider Family Medicine
DX: R92.8 Other abnormal and inconclusive findings on diagnostic imaging of breast (principal); N64.53 Retraction of nipple
CPT/HCPCS: 76641; 77062; 77066; G0279

== ENCOUNTER → 2023-08-23 13:23 | Outpatient (CLI) | payer MEDICARE, SELFPAY ==
--- NOTE | ~2023-08-23 | MM_ITS ---
EXAMINATION: MM screening [facility] BI w carlo HISTORY: Screening TECHNIQUE: Craniocaudal and mediolateral oblique 3-D tomosynthesis images were obtained and synthetic 2-D images were generated. CAD analysis was submitted and interpreted. COMPARISON: Comparison to multiple prior studies sequentially, with oldest reviewed study dated 10/2015. BREAST PARENCHYMAL COMPOSITION: Not dense: There are scattered areas of fibroglandular density. FINDINGS: There is no evidence of suspicious mass, calcification, or architectural distortion to sugg est malignancy in either breast. There has been no suspicious interval change. IMPRESSION: 1. No mammographic evidence of malignancy. 2. Recommend routine screening mammography in one year. BI-RADS Category 1: Negative Reviewed, dictated and finalized at location A. [employer] CONTACT SPECIALIST
== END ==
PROVIDERS: PCP Family Medicine; Visit Provider Family Medicine
DX: Z12.31 Encounter for screening mammogram for malignant neoplasm of breast (principal)
CPT/HCPCS: 77063; 77067

== ENCOUNTER 2023-11-20 11:10 | Outpatient (CLI) | payer MEDICARE, SELFPAY ==
--- NOTE | ~2023-11-20 | CT_ITS ---
CT Scan of the Chest without Contrast: Clinical Indication: Lung cancer screening, nicotine dependence Technique: Contiguous sections were acquired throughout the chest without intravenous contrast. Dose reduction technique was used on this scan by utilizing automated exposure control and iterative recon struction technique. The dose-length product (DLP) was 41.99 mGy-cm. Findings: There is no evidence of any significant mediastinal, hilar or axillary lymphadenopathy. There are mil d atherosclerotic calcifications of the aorta and coronary arteries. There is no evidence of pleural or pericardial effusion. Calcified right upper lobe granuloma noted. There is mild scarring at the right middle lobe. There is a 6 mm left upper lobe pulmonary nodule (axial image 30). There is an additional 4 mm left apical pu lmonary nodule (axial image 20). Images through the upper abdomen reveal no abnormalities. Impression: Lung RADS 3: Probably benign. Six-month follow-up CT advised. Reviewed, dictated and finalized at [facility]. Impression: Lung RADS 3: Probably benign. Six-month follow-up CT advised.
== END 2023-11-20 11:11 ==
LOC: MICIMG 11:11
PROVIDERS: PCP Family Medicine; Visit Provider Physician Assistant
DX: Z12.2 Encounter for screening for malignant neoplasm of respiratory organs (principal); Z87.891 Personal history of nicotine dependence; Z13.820 Encounter for screening for osteoporosis
CPT/HCPCS: 71271

== ENCOUNTER 2024-05-16 12:50 | Outpatient (CLI) | payer MEDICARE, SELFPAY ==
--- NOTE | ~2024-05-16 | CT_ITS ---
EXAMINATION:CT diagnostic chest wo con DATE: 05/16/2024 13:10 INDICATION: Solitary pulmonary nodule. TECHNIQUE: Computed tomography (CT) of the chest was performed without intravenous contrast. Automate d exposure control and iterative reconstruction technique were employed. The dose-length product (DLP ) was 41.29 mGy-cm. COMPARISON: Chest CT 11/20/2023 FINDINGS: There is mild scarring at the lung disease. There is mild emphysema. A calcified right lung nodule and calcified right hilar and mediastinal lymph nodes are consistent with old granulomatous d isease. There is mild atelectasis bilaterally. There is a 6 mm cavitary nodule in left upper lobe wit hout change. There is a stable 4 mm nodule at left lung apex. No pleural effusion. The heart size is normal. There are coronary artery calcifications. No pericardial effusion. There are changes of deidra cystectomy. There are cysts in the liver measuring up to 2.2 cm. There is severe thoracic spondylosis . There is mild chronic anterior wedging of multiple vertebral bodies. IMPRESSION: 1. Lung-RADS category 2: Benign appearance or behavior. Continue annual screening with noncontrast lo w-dose chest CT in 12 months. Reviewed, dictated and finalized at location A. E WORKER IMPRESSION: 1. Lung-RADS category 2: Benign appearance or behavior. Continue annual screeni ng with noncontrast low-dose chest CT in 12 months.
== END 2024-05-16 12:51 | disposition home or self-care (01) ==
PROVIDERS: PCP Family Medicine; Visit Provider Family Medicine
DX: R91.1 Solitary pulmonary nodule (principal)
CPT/HCPCS: 71250

== ENCOUNTER 2024-10-20 14:44 | Outpatient (CLI) | payer MEDICARE, SELFPAY ==
--- NOTE | ~2024-10-20 | DEXA_ITS ---
Bone Density Report Name: HOLLY SANCHEZ Age: 79 Sex: Female Ethnicity: White Date of : 1945 Indication: postmenopausal; screening for osteoporosis; asthma or emphysema; hysterectomy; Referring Provider: AUGUSTO LOJA Study: Bone densitometry was performed. Exam Date: October 20, 2024 Accession number: [id number] Bone Density: Region BMD T-score Z-score Classification AP Spine(L1-L4) 0.812 -2.1 0.5 Osteopenia Femoral Neck (Left) 0.595 -2.3 -0.1 Osteopenia Total Hip (Left) 0.681 -2.1 -0.2 Osteopenia Femoral Neck (Right) 0.579 -2.4 -0.2 Osteopenia Total Hip (Right) 0.668 -2.2 -0.3 Osteopenia Total Hip Mean 0.674 -2.2 -0.3 Osteopenia World Health Organization criteria for BMD impression classify patients as: Normal (T-score at or above -1.0), Osteopenia (T-score between -1.0 and -2.5), or Osteoporosis (T-score at or below -2.5). 10-year Fracture Risk(1): Major Osteoporotic Fracture 17% Hip Fracture 8.0% Reported Risk Factors: [place] (), Neck BMD=0.579, BMI=21.1, smoking (1) FRAX(R) Version 3.08. Fracture probability calculated for an untreated patient. Fracture probability may be lower if the patient has received treatment. Clinical Information Provided by Patient: Smokes Has used the following medications: HRT (i.e. estrogen/hormone therapy), Vitamin D Has the following medical conditions: Asthma or Emphysema, Hysterectomy Patient maximum height was 64 Menopause Age: 36 No regular weight bearing exercise Drinks caffeinated beverages Onset of menses at age 16 Number of children 4 Impression: The patient has low bone mass, based on the Right Femoral Neck T-score. The patient has an estimated ten-year risk of hip fracture of 8% and an estimated ten-year risk of major fracture of 17%, based on the WHO FRAX algorithm. The patient has risk factors, including: smoking. Discussion: BONE DENSITY IS LOW AT ONE OR MORE SKELETAL SITES. THE PATIENT'S BMD AND CLINICAL RISK FACTORS CONTRIBUTE TO THIS PATIENT'S INCREASED RISK OF FRACTURE. This patient's lowest T-score is low at one or more skeletal sites. It meets the World Health Organization's (WHO) criteria for ?low bone mass? (T-score between -1.0 and -2.5). The patient's 10-year risk of hip fracture as calculated by FRAX exceeds the threshold where pharmacological therapy is recommended by the National Osteoporosis Foundation (NOF). However, all treatment decisions require clinical judgment and consideration of individual patient factors, including patient preferences, comorbidities, previous drug use, risk factors not captured in the FRAX model (e.g., frailty, falls, vitamin D deficiency, increased bone turnover, interval significant decline in bone density) and possible under or overestimation of fracture risk by FRAX. The patient should follow a healthful lifestyle (good nutrition with adequate calcium and vitamin D, and appropriate weight-bearing exercise). Follow-Up: Consider a repeat BMD and Vertebral Fracture Assessment (VFA) exam in 2 years or sooner if medically necessary, to reassess this patient's status. Reported by: ALISHA on 10/20/2024 3:26:00 PM. Reviewed, dictated and finalized at location [facility]
--- OUTSIDE RECORDS SUMMARY | 2024-10-20 16:43 | XMS_ITS | Referral Summary ---
Author Organization [facility] Address [address] [place] [address] Care Team Providers Care Clean Rice Grader And Reel Tender Name Role Phone Dee Prince MD Primary Care Provider [phone] Encounters Date Type Department Care Team Description 09/19/2024 11:00 AM CDT Office Visit [facility] Medical [facility] Cardiology [address] [place] [address] [place] [phone] Marcia Diallo NP Paroxysmal SVT (supraventricular tachycardia) (Primary Dx); Gastroesophageal reflux disease without esophagitis 08/27/2024 8:15 AM MONEY EXAMINER Ancillary Procedure [facility] Cardiology [address] [place] [address] [place] [phone] Dyspnea on exertion; Chest pain, unspecified type 08/21/2024 Results Follow-Up [facility] Cardiology [address] [place] [address] [place] [phone] Marcia Diallo NP 08/14/2024 1:30 PM MONEY EXAMINER Ancillary Procedure [facility] Cardiology [address] [place] [address] [place] [phone] Dyspnea on exertion; Chest pain, unspecified type 08/14/2024 1:00 PM MONEY EXAMINER Office Visit [facility] Cardiology [address] [place] [address] [place] [phone] Marcia Diallo NP Dyspnea on exertion (Primary Dx); Chest pain, unspecified type; Labile hypertension from Last 3 Months Allergies Active Allergy Reactions Criticality Noted Date Comments Amlodipine Stomach upset Low 07/23/2019 Medications ferrous sulfate 325 mg (65 mg of elemental iron) tablet ferrous sulfate 325 mg (65 mg iron) tablet TAKE 1 TABLET BY MOUTH TWICE A DAY WITH MEALS 1 Active cyanocobalamin (Vitamin B-12) 1,000 mcg tablet cyanocobalamin (vitamin B-12) 1,000 mcg tablet 2 Active latanoprost (XALATAN) 0.005 % ophthalmic solution INSTILL ONE DROP INTO BOTH EYES AT BEDTIME. THIS IS REPLACING TIMOLOL 3 Active aspirin (Vazalore) 81 mg capsule Take 1 tablet by mouth daily Active brimonidine (ALPHAGAN) 0.2 % ophthalmic solution APPLY ONE DROP TO BOTH EYES 2 TIMES A DAY. 3 Active rosuvastatin (CRESTOR) 20 mg tablet TAKE 1 TABLET BY MOUTH EVERY DAY 90 tablet 3 4 Active ezetimibe (ZETIA) 10 mg tablet TAKE 1 TABLET BY MOUTH EVERY DAY 90 tablet 2 4 Active levothyroxine (SYNTHROID) 88 mcg tablet Take 1 tablet (88 mcg total) by mouth software quality analyst before breakfast Active buPROPion XL (WELLBUTRIN XL) 150 mg 24 hr tablet TAKE 1 TABLET BY MOUTH EVERY DAY IN THE MORNING 90 tablet 2 4 Active lisinopriL (PRINIVIL,ZEST RIL) 20 mg tablet TAKE 1 TABLET BY MOUTH EVERY DAY 90 tablet 1 4 Active amLODIPine (NORVASC) 10 mg tablet TAKE 1 TABLET BY MOUTH EVERY DAY 90 tablet [address] (NexIUM) 40 mg capsule Take 1 capsule (40 mg total) by mouth daily before breakfast 5 Active cholecalcifero l 25 mcg (1,000 unit) tablet TAKE 1 TABLET EVERY DAY BY ORAL ROUTE WITH MEAL(S) FOR 90 DAYS. 4 Active Active Problems Problem Noted Date Diagnosed Date Coronary artery calcification seen on CAT scan 0 02/22/2024 Overview (02/22/2024): Incidental coronary artery calcifications noted on low-dose CT chest November 20, 2023 at [facility] Paroxysmal SVT (supraventricular tachycardia) Atherosclerosis of aorta 02/22/2024 Overview (02/22/2024): Incidental atherosclerosis of the thoracic aorta noted on low-dose CT chest November 20, 2023 at [facility] H/O tobacco use, presenting hazards to health Assessment & Plan (02/18/2024 6:29 PM CDT): Chronic. Counseled to quit. Gastroesophageal reflux disease without esophagi tis 02/18/2024 Assessment & Plan (02/18/2024 6:29 PM CDT): Chronic. Controlled. Attempt to wean PPI to daily given patient denies history of Barretts. Try to get records. 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 Denies claudication. Continue risk factor modification with ASA, statin Hypothyroidism 05/12/2022 Assessment & Plan (02/18/2024 6:28 PM CDT): Chronic. Relatively euthyroid. Medication was adjusted in the last few months so needs follow up TSH to see if further adjustment needed. Ordered. We will plan to just levothyroxine based on results Hypertension 05/12/2022 Assessment & Plan (02/18/2024 6:28 PM CDT): Chronic. Controlled. Continue amlodipine and lisinopril Hyperlipidemia 05/12/2022 Assessment & Plan (02/18/2024 6:29 PM CDT): Chronic. controlled on last check. Continue statin and ezetimibe Immunizations Immunization Administration Dates Next Due Influenza, Quadrivalent, Hig h Dose, Preservative Free, Intrr 03/25/2023,04/14/2022,03/24/2021,04/13,04/19/2014 Influenza, Trivalent, High D ose, Split, Preservative Free, Intramuscular 05/01/2019,04/27/2018,03/18/2017,04/04,03/29/2015,04/19/2014 Influenza, Trivalent, Preser vative Free, Intramuscular 07/02/2011 Pneumococcal Polysaccharide PPV23 05/19/2014 RSV Vaccine, Pref, Recombina nt, Subunit, Adjuvanted, PF, IM (Arexvy) 05/18/2023 Tdap 05/13/2012 ZOSTER LIVE 05/15/2011 Social History Tobacco Use Types Packs/Day Years Used Date Smoking Tobacco: Never Cigarettes 0.[address] arted: 07/02/1973 Passive Smoke Exposure: Yes Smokeless Tobacco: Never Tobacco Cessation:Counseling Given: Not Answered Comments:Have tried several times, several different aids, no complete success AUDIT-C Answer Date Recorded Q1: How often do you have a drink containing alc ohol? 2-4 times a month 02/18/2024 Q2: How many drinks containi ng alcohol do you have on a typical day when you are drinking? 3 or 4 02/18/2024 Q3: How often do you have si x or more drinks on one occasion? Less than monthly 02/18/2024 PHQ-2 Answer Date Recorded PHQ-2 Total Score (If total score is 3 or more points, staff should administer the PHQ-9) 0 02/18/2024 PHQ-9 Answer Date Recorded PHQ-9 Total Score 0 02/18/2024 Comments No Sex and Gender Information Value Date Recorded Sex Assigned at Not on file Legal Sex Female 12:39 AM MONEY EXAMINER Gender Identity Not on file Sexual Orientation Not on file Last Filed Vital Signs Vital Sign Reading Time Taken Comments Blood Pressure 140/50 09/19/2024 10:56 AM CDT Pulse 54 09/19/2024 10:56 AM CDT Temperature 36.9 C (98.5 F) 02/18/2024 9:47 AM CDT Respiratory Rate 16 02/18/2024 9:47 AM CDT Oxygen Saturation 97% 09/19/2024 10:56 AM CDT Inhaled Oxygen Concentration - - Weight 54.4 kg (120 lb) 09/19/2024 10:56 AM CDT Height 162.6 cm (5' 4 ) 09/19/2024 10:56 AM CDT Body Mass Index 20.6 09/19/2024 10:56 AM CDT Plan of Treatment Not on file Procedures Procedure Name Priority Date/Time Associated Diagnosis Comments NM MPI SPECT (REST AND/OR STRESS) MULTIPLE STUDIES Schedule Routine, Read Routine (OP Routine) 08/27/2024 10:35 AM MONEY EXAMINER Dyspnea on exertion Chest pain, unspecified type HOLTER MONITOR 48 HR Routine 08/18/2024 11:10 AM MONEY EXAMINER Dyspnea on exertion Chest pain, unspecified type ECG 12-LEAD Routine 08/14/2024 1:40 PM MONEY EXAMINER Chest pain, unspecified type HM LUNG CANCER SCREENING Routine 02/22/2024 3:27 PM CDT from Last 3 Months or Most Recently Relevant to Health Maintenance Results * NM MPI SPECT (Rest and/or Stress) Multiple Studies (08/27/2024 10:35 AM MONEY EXAMINER) Anatomical Region Laterality Modality Body N/A Nuclear Medicine 08/27/2024 9:08 AM MONEY EXAMINER Narrative 08/28/2024 7:37 AM MONEY EXAMINER [facility] Medical Group Cardiology [address] [facility] [address] [id number] [address] [facility] [address] [place] [address], [place] [address] P:[phone] P:[phone] MPI Imaging Report Patient Name: SIOBHAN SOLOMON : 1945 Study Date: 08/27/2024 9:08:04 AM Gender: F Tech: JOAN[facility] Location: [facility] Provider: MARCIA DIALLO Height(Cm): 162.6 BSA: Weight(Kg): 55.3 BMI: 20.92 Order Provider: MARCIA DIALLO PHYSICIAN: Referring Physician: Dr. Prince. HCG Physician: Radha Preston M.D., F.A.C.C. Interpreting Physician: Gianluca Mann M.D.,F.A.C.C. Stress Supervision: Curry Morley M.D., [place]ma. PROCEDURES: Exercise SPECT Report: Myocardial perfusion imaging with Tc99m Sestamibi SPECT at rest and stress post exercise using the Yves protocol. INDICATIONS: Hypertension, Family Hx CAD, High Cholesterol, Smoker, Palpitations. PSVT. Elevated CAC score, R06.09 Other forms of dyspnea, and R07.9 Chest pain, unspecified. FINDINGS: Procedure: One day rest/stress protocol was used. Tc99m Sestamibi injected IV at rest was 8.2 millicuries 24.6 millicuries of Tc99m Sestamibi injected IV at peak stress Exercise stress related symptoms include shortness of breath. Symptoms were resolved with rest. Baseline heart rate was 51 BPM Peak heart rate was 131 BPM Max projected heart rate was 142 Percent predicted max heart rate achieved was 92 % Exercise Time 5:00 min Baseline blood pressure was 128/58 mmHg Peak blood pressure 160/70 mmHg Termination: Fatigue. Dyspnea. Resting ECG: Sinus bradycardia. Post ECG: Findings do not meet strict criteria for ischemia. Arrhythmia: Occasional APCs. Perfusion Findings: A TID of 0.95 was automatically calculated. defect 1: Size is small. Severity is mild to moderate in intensity. Location of defect is in the apex. Reversibility is not present, defect is fixed. Type of defect is most likely attenuation artifact. Attenuation noted due to increased gut uptake. LV Function: Global left ventricular function is normal. Left Ventricular Ejection Fraction is 70 %. CONCLUSIONS: Size is small. Severity is mild to moderate in intensity. Location of defect is in the apex. Reversibility is not present, defect is fixed. Type of defect is most likely attenuation artifact and apical thinning. Attenuation noted due to increased gut uptake. Global left ventricular function is normal. Left Ventricular Ejection Fraction is 70 %. Negative EKG portion of treadmill nuclear stress test at 99% MPHR. Exercise time 5 minutes, Mets 7. Correlated with SPECT. Electronically Signed By: Curry Morley MD, [facility] 08/27/2024 3:37:54 PM MONEY EXAMINER Electronically Signed By: Gianluca Mann MD, [facility] 08/28/2024 7:35:23 AM MONEY EXAMINER Procedure Note Gianluca Mann MD - 08/28/2024 [facility] Medical [facility] Cardiology [address] [facility] [address] [address] [address] [facility] [address], [place], [place] [address] P:[phone] P:[phone] MPI Imaging Report Patient Name: SIOBHAN SOLOMON : 1945 Study Date: 08/27/2024 9:08:04 AM Gender: F Tech: [facility] Location: [facility] Provider: MARCIA DIALLO Height(Cm): 162.6 BSA: Weight(Kg): 55.3 BMI: 20.92 Order Provider: MARCIA DIALLO PHYSICIAN: Referring Physician: Dr. Prince. HCG Physician: Radha Preston M.D., F.A.C.C. Interpreting Physician: Gianluca Mann M.D.,F.A.C.C. Stress Supervision: Curry Morley M.D., F.A.C.C. PROCEDURES: Exercise SPECT Report: Myocardial perfusion imaging with Tc99m Sestamibi SPECT at rest and stresspost exercise using the Yves protocol. INDICATIONS: Hypertension, Family Hx CAD, High Cholesterol, Smoker, Palpitations. PSVT.Elevated CAC score, R06.09 Other forms of dyspnea, and R07.9 Chest pain, unspecified. FINDINGS: Procedure: One day rest/stress protocol was used. Tc99m Sestamibi injected IV at rest was 8.2 millicuries 24.6 millicuries of Tc99m Sestamibi injected IV at peak stress Exercise stress related symptoms include shortness of breath. Symptoms were resolved with rest. Baseline heart rate was 51 BPM Peak heart rate was 131 BPM Max projected heart rate was 142 Percent predicted max heart rate achieved was 92 % Exercise Time 5:00 min Baseline blood pressure was 128/58 mmHg Peak blood pressure 160/70 mmHg Termination: Fatigue. Dyspnea. Resting ECG: Sinus bradycardia. Post ECG: Findings do not meet strict criteria for ischemia. Arrhythmia: Occasional APCs. Perfusion Findings: A TID of 0.95 was automatically calculated. defect 1: Size is small. Severity is mild to moderate in intensity. Location ofdefect is in the apex. Reversibility is not present, defect is fixed. Type of defect ismost likely attenuation artifact. Attenuation noted due to increased gut uptake. LV Function: Global left ventricular function is normal. Left Ventricular EjectionFraction is 70 %. CONCLUSIONS: Size is small. Severity is mild to moderate in intensity. Location ofdefect is in the apex. Reversibility is not present, defect is fixed. Type of defect ismost likely attenuation artifact and apical thinning. Attenuation noted due toincreased gut uptake. Global left ventricular function is normal. Left Ventricular EjectionFraction is 70 %. Negative EKG portion of treadmill nuclear stress test at 99% MPHR.Exercise time 5 minutes, Mets 7. Correlated with SPECT. Electronically Signed By: Curry Morley MD, [facility] 08/27/2024 3:37:54 PM MONEY EXAMINER Electronically Signed By: Gianluca Mann MD, [facility] 08/28/2024 7:35:23 AM MONEY EXAMINER Marcia Diallo LOCKSTITCH COLLAR SETTER IMG NM PROCEDURES Final R esult * 48 HR Holter Monitor (08/18/2024 11:10 AM MONEY EXAMINER) Anatomical Region Laterality Modality Electrocardiogra phy Narrative 08/20/2024 3:05 PM MONEY EXAMINER AMBULATORY CARBURETOR SPECIALIST REPORT Patient Name: Siobhan Solomon Date of : 1945 Requesting Physician: FRANCE Diallo Date of interpretation: 08/20/24 Type of monitor : 48 hour Holter monitor Date of the study/Enrollment period: 08/14/2024 Indication: Dyspnea Quality of the study: Fair with artifact on rhythm strips Interpretation: Predominant underlying rhythm is sinus rhythm/sinus bradycardia, heart rate ranges between 38 beats per minute to 115 beats per minute, average heart rate low at 51 beats per minute. Occasional PACs and PVCs were noted with a burden of less than 1% for the duration of the study. One brief episode of 4 beat junctional versus supraventricular tachycardia was noted at 115 beats per minute. No symptoms reported. Conclusions: Underlying rhythm is sinus rhythm/sinus bradycardia, average heart rate 51 beats per minute (HR range 38-115 bpm). Occasional PACs and PVCs; 1 brief episode of 4 beat SVT. No other significant arrhythmias or heart blocks. No symptoms reported. Voice recognition software was used to complete this document, therefore, bottom painter variances may occur. Curry Morley MD, [facility] 08/20/24 Marcia Diallo LOCKSTITCH COLLAR SETTER CV CARDIAC SERVICES PROCE [facility] Final Result * ECG 12 lead (08/14/2024 1:40 PM MONEY EXAMINER) 08/14/2024 1:40 PM MONEY EXAMINER Marcia Diallo NP ECG ORDERABLES Edited Re sult - Final * LUNG CANCER SCREENING (02/22/2024 3:27 PM CDT) Scribed Lung Cancer Screening Normal Historical Provider HEALTH MAINTENANCE Final Result from Last 3 Months or Most Recently Relevant to Health Maintenance Insurance [facility] MEDICARE ADVANTAGE U[employer] MEDICARE ADVANTAGE Care Teams Clean Rice Grader And Reel Tender Relationship Specialty Start Date End Date Dee Prince MD [address] [address] PCP - General Family Medicine 08/14/24
--- OUTSIDE RECORDS SUMMARY | 2024-10-20 16:43 | XMS_ITS | CONTINUITY OF CARE DOCUMENT ---
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 Name Role Phone Brandon LUNA, Ace Unavailable JOANA LUNA, ELISEODA Unavailable JOANA LUNA, RUNDA Unavailable [phone] PROBLEMS Condition Status Date Provider Notes LIVER cyst active Ace Taylor MD Pulmonary hypertension active Ace Taylor MD IRON DEFICIENCY active Ace Taylor MD Valvular heart disease active Ace Taylor MD Tachycardia completed - Ace Taylor MD Tachy han syndrome active Ace [place] tsh ok HTN essential active Ace Taylor MD has s ome caroline Hyperlipidemia active Ace Taylor MD HYPOTHYROIDISM;ON RX PER PRIMARY, active Ace Taylor MD was rxed for goite with I 131 Tobacco dependence, continuous active Ace Taylor MD Renal artery stenosis active Ace Taylor MD FAMILY HISTORY OF HEART DISEASE active Ace Taylor MD dad Carotid artery disease;mild plaquing completed - Aec Taylor MD Lung nodule;neg pet 2019 active Ace garland MD Abnormal electrocardiogram completed 04/10 - Ace Taylor MD Screening active Ace Taylor MD PVD; active cAe Taylor MD CAD;carotid plaquing active Ace [place] GERD active Viviane Chavez RN Exposure to SARS-associated coronavirus;NEG SWAB and IGG and vacine active Ace Taylor MD Syncope active Padmini Wilson NP Long-term (current) use of other medications completed - Ace Taylor MD Chronic diastolic heart failure completed - Ace Taylor MD Dyspnea completed - Ace Taylor MD ENCOUNTERS Date Type Provider Location Encounter Diag nosis - In-person encounter Office Visit Ace Tyalor MD [facility] Tobacco dependence, continuous - In-person encounter Office Visit Ace Taylor MD [facility] - In-person encounter Office Visit Ace Taylor MD [facility] - In-person encounter Office Visit Ace Taylor MD [facility] HTN essentialChronic diastolic heart failureDyspnea - In-person encounter Office Visit Ace Taylor MD [facility] Exposure to SARS-associated coronavirus;NEG SWAB and IGG and vacineLong-term (current) use of other medications - In-person encounter Office Visit Ace Taylor MD [facility] Syncope - In-person encounter Office Visit Ace Taylor MD [facility] Tachy han syndromeCarotid artery disease;mild plaquingCAD;carotid plaquing - In-person encounter Office Visit Daniel Allen MD [facility] Office Tobacco dependence, continuousGERD - In-person encounter Office Visit Ace Taylor MD [facility] Tachy han syndromeLung nodule;neg pet 2019Abnormal electrocardiogramScreeni ngPVD;CAD;carotid plaquing - In-person encounter Office Visit Ace Taylor MD [facility] TachycardiaTachy han syndromeHTN essentialHyperlipidemiaH YPOTHYROIDISM;ON RX PER PRIMARY,Tobacco dependence, continuousRenal artery stenosisFAMILY HISTORY OF HEART DISEASE VITAL SIGNS Date Observation Value Provider Body Mass Index (Ratio) 20.60 kg/m2 Alexa Taylor MD blood pressure, diastolic 52 mm[Hg] Li nkLogic blood pressure, systolic 153 mm[Hg] Nancy kLogic blood pressure, diastolic 52 mm[Hg] Sa ra Fernandes blood pressure, systolic 153 mm[Hg] Rohan a Fernandes oxygen saturation, oximetry 100 % Ashley Fernandes respiratory rate E&M 16 /min Ashley Si ms pulse rate 50 /min Ashley Fernandes weight E&M 120 [lb_av] Ashley Fernandes blood pressure, cuff size regular Sa ra Fernandes height E&M 64 [in_i] Ashley Fernandes Body Mass Index (Ratio) 21.14 kg/m2 Alexa Taylor MD blood pressure, cuff size regular Tr shirley Donovan oxygen saturation, oximetry 98 % Trystanislaw Donovan blood pressure, diastolic 59 mm[Hg] Tr shirley Donovan blood pressure, systolic 143 mm[Hg] Try stanislaw Donovan respiratory rate E&M 16 /min Trynett Donovan pulse rate 51 /min Trynett Donovan weight E&M 123.2 [lb_av] Susan Alexandre s height E&M 64 [in_i] Trynett Donovan Body Mass Index (Ratio) 20.94 kg/m2 Alexa Taylor MD blood pressure, cuff size regular Waylon rri Pilar blood pressure, diastolic 62 mm[Hg] Ke rri Breanaelder blood pressure, systolic 122 mm[Hg] Vicky Mooner oxygen saturation, oximetry 98 % Ivett Quezada respiratory rate E&M 16 /min Ivett lundbergelder pulse rate 44 /min Ivett Varela lder weight E&M 122 [lb_av] Ivett Varela er height E&M 64 [in_i] Ivett Varela er Body Mass Index (Ratio) 20.77 kg/m2 Alexa Taylor MD blood pressure, resting Yes De sommers O'Nacho blood pressure, diastolic 60 mm[Hg] Ma tereseha O'Nacho blood pressure, systolic 158 mm[Hg] Mar christian O'Nacho oxygen saturation, oximetry 98 % Vanesa O'Nacho respiratory rate E&M 16 /min Vanesa O'Nacho pulse rate 47 /min Vanesa O'Nacho weight E&M 121 [lb_av] Vanesa O'Nacho height E&M 64 [in_i] [facility] O'Nacho Body Mass Index (Ratio) 21.63 kg/m2 Alexa Taylor MD blood pressure, diastolic 62 mm[Hg] Rh noah Hernandez blood pressure, systolic 150 mm[Hg] Rho ndfrancia Hernandez pulse rate 50 /min Florencefrancia Hernandez oxygen saturation, oximetry 98 % Florence Hernandez weight E&M 126 [lb_av] Florence Hernandez respiratory rate E&M 18 /min Florencefrancia Hernandez blood pressure, resting Yes Juani Graham blood pressure, cuff size regular Rh noah Hernandez height E&M 64 [in_i] Florence Mary Body Mass Index (Ratio) 21.28 kg/m2 Alexa Taylor MD blood pressure, cuff size regular Ke rri Trasolomonhemant blood pressure, diastolic 62 mm[Hg] Ke rri Tramohindereldcodi blood pressure, systolic 116 mm[Hg] Vicky ri Pilar oxygen saturation, oximetry 98 % Ivett Pilar respiratory rate E&M 16 /min Ivett Glynn louise pulse rate 65 /min Ivett Nichole lder weight E&M 124 [lb_av] Ivett Jesusitanfe er height E&M 64 [in_i] Ivett Nichole [facility] Body Mass Index (Ratio) 23.51 kg/m2 Alexa Taylor MD respiratory rate E&M 16 /min [facility] Kim blood pressure, diastolic 45 mm[Hg] To nsha Kim blood pressure, systolic 99 mm[Hg] Ton [facility] pulse rate 53 /min [facility] Kim oxygen saturation, oximetry 98 % [facility] Kim weight E&M 137 [lb_av] Tons Kim height E&M 64 [in_i] [facility] Kim Body Mass Index (Ratio) 23.00 kg/m2 Arash Chavez RN pulse rate 82 /min Linda Block blood pressure, diastolic 82 mm[Hg] Br ittany Block blood pressure, systolic 130 mm[Hg] Janay ttany Block oxygen saturation, oximetry 98 % Linda Block weight E&M 134 [lb_av] Linda Block blood pressure, resting Yes Brit stella Block respiratory rate E&M 16 /min Brittan y Block height E&M 64 [in_i] Linda Block Body Mass Index (Ratio) 23.69 kg/m2 Alexa Taylor MD blood pressure, cuff size regular Jj Martínez blood pressure, diastolic 70 mm[Hg] Jj Thao blood pressure, systolic 150 mm[Hg] Raymundo Martínez oxygen saturation, oximetry 98 % Latoya Martínez pulse rate 46 /min Latoya Mauricio respiratory rate E&M 17 /min Latoya [place] weight E&M 138 [lb_av] Latoya [place] height E&M 64 [in_i] Latoya Body Mass Index (Ratio) 23.17 kg/m2 Alexa Taylor MD blood pressure, cuff size regular Cy jason Michael blood pressure, diastolic 64 mm[Hg] Cy jason Michael blood pressure, systolic 140 mm[Hg] Rose Mary soha Michael oxygen saturation, oximetry 98 % Sudha Michael respiratory rate E&M 16 /min Sudha Michael pulse rate 54 /min Sudha Mcneillbel l height E&M 64 [in_i] Sudha Ositobel l weight E&M 135 [lb_av] Sudha Campbel l ALLERGIES Allergy Name Onset Date Reaction Criticality Status [facility] stomach pain Low Criticality active RESULTS Date Observation Value Provider Reference Range Interpretation Location 5 pro brain natriuretic peptide 63 pg/mL LinkLogic 0-301 5 free thyroxine index 2.6 LinkLogic 1.2-4.9 5 triiodothyronine resin uptake 30 % LinkLogic 24-39 5 thyroxine, serum, total 8.7 ug/dL Link[facility] 4.5-12.0 5 thyroid stimulating hormone, serum 2.100 u[IU]/mL Link[facility]ic 0.450-4.500 4 ferritin, serum 90 ng/mL Link[facility]ic 15-150 4 free thyroxine index 2.2 [facility]ic 1.2-4.9 4 triiodothyronine resin uptake 28 % Link[facility]ic 24-39 4 thyroxine, serum, total 8.0 ug/dL [facility] 4.5-12.0 4 thyroid stimulating hormone, serum 10.100 u[IU]/mL Link[facility]ic 0.450-4.500 High 4 hemoglobin A1C, blood, as % of total hemoglobin 4.7 % [facility]ic 4.8-5.6 Low 4 iron saturation percent, serum 17 % [facility] 15-55 4 iron, serum 57 ug/dL [facility] 27-139 4 iron binding capacity, unsaturated 284 ug/dL [facility] 034-078 7370/01/1 4 iron binding capacity, total 341 ug/dL [facility] 925-473 0172/01/1 4 lipoprotein, beta, serum, point, quantitative, calculated 44 mg/dL [facility] 0-99 4 HDL cholesterol, serum 57 mg/dL Link[facility]ic >39 4 triglyceride, serum, random 122 mg/dL [facility] 0-149 4 cholesterol, serum 122 mg/dL Link[facility]ic 963-069 1975/01/1 4 basophil count, absolute 0.1 x10E3/uL LinkLogic 0.0-0.2 4 Eosinophil Absolute Count 0.1 X10E3/UL LinkLogic 0.0-0.4 4 monocyte count, blood, automated 0.7 X10E3/UL LinkLogic 0.1-0.9 4 lymphocyte count, blood, automated 1.3 X10E3/UL Link[facility]ic 0.7-3.1 4 Absolute Neutrophils 5.3 X10E3/UL LinkLogic 1.4-7.0 4 basophils as percent of blood leukocytes 1 % LinkLogic Not Estab. 4 eosinophils as percent of blood leukocytes 2 % LinkLogic Not Estab. 4 monocytes as percent of blood leukocytes 9 % LinkLogic Not Estab. 4 lymphocytes as percent of blood leukocytes 18 % LinkLogic Not Estab. 4 neutrophils as percent of blood leukocytes 70 % LinkLogic Not Estab. 4 platelet count 278 X10E3/UL LinkLogic 918-596 6320/01/1 4 red blood cell distribution width 13.8 % [facility]ic 11.7-15.4 4 mean corpuscular hemoglobin concentration, RBC 32.1 G/DL Link[facility]ic 31.5-35.7 4 mean corpuscular hemoglobin, RBC 30.9 pg LinkLogic 26.6-33.0 4 mean corpuscular volume, RBC 96 fL Link[facility]ic 79-97 4 hematocrit, blood 40.2 % [facility]ic 34.0-46.6 4 hemoglobin, blood 12.9 g/dL LinkLogic 11.1-15.9 4 erythrocyte (RBC) count 4.18 X10E6/UL LinkLogic 3.77-5.28 4 leukocyte count, blood 7.5 X10E3/UL LinkLogic 3.4-10.8 4 alanine aminotransferase (SGPT), serum 12 1/L LinkLogic 0-32 4 aspartate aminotransferase (SGOT), serum 25 1/L Link[facility]ic 0-40 4 alkaline phosphatase, serum 88 1/L [facility] 39-117 4 bilirubin, serum, total 0.4 mg/dL [facility]ic 0.0-1.2 4 albumin/globulin ratio, serum 1.6 Link[facility] 1.2-2.2 4 globulin, serum 2.7 LinkLogic 1.5-4.5 4 albumin, serum 4.2 g/dL LinkLogic 3.7-4.7 4 protein, total, serum 6.9 g/dL [facility]ic 6.0-8.5 4 calcium, serum 9.2 mg/dL [facility]ic 8.7-10.3 4 carbon dioxide, venous blood 22 mmol/L Link[facility]ic 20-29 4 chloride, serum 104 mmol/L [facility]ic 96-106 4 potassium, serum 4.6 mmol/L LinkLogic 3.5-5.2 4 sodium, serum 141 mmol/L Link[facility]ic 267-804 5686/01/1 4 urea nitrogen/creatinine ratio, serum 17 Link[facility]ic 12-28 4 eGFR if 83 mL/min/{1 .73_m2} LinkLogic >59 4 eGFR if not 72 mL/min/{1 .73_m2} LinkLogic >59 4 creatinine, serum 0.81 mg/dL LinkLogic 0.57-1.00 4 urea nitrogen, blood 14 mg/dL LinkLogic 8-27 4 blood glucose, random 92 mg/dL LinkLogic 65-99 1 prothrombin time (patient) 11.2 s LinkLogic 9.1-12.0 1 international normalized ratio (INR) 1.1 LinkLogic 0.8-1.2 1 free thyroxine index 2.7 LinkLogic 1.2-4.9 1 triiodothyronine resin uptake 29 % LinkLogic 24-39 1 thyroxine, serum, total 9.4 ug/dL LinkLogic 4.5-12.0 1 thyroid stimulating hormone, serum 1.430 u[IU]/mL LinkLogic 0.450-4.500 1 lipoprotein, beta, serum, point, quantitative, calculated 35 mg/dL LinkLogic 0-99 1 very low density lipoproteins 17 mg/dL LinkLogic 5-40 1 HDL cholesterol, serum 74 mg/dL LinkLogic >39 1 triglyceride, serum, random 87 mg/dL LinkLogic 0-149 1 cholesterol, serum 126 mg/dL [facility] [phone]/11/0 1 calcium, serum 9.3 mg/dL Link[facility]ic 8.7-10.3 1 carbon dioxide, venous blood 23 mmol/L Link[facility]ic 20-29 1 chloride, serum 107 mmol/L LinkLogic 96-106 High 1 potassium, serum 4.5 mmol/L LinkLogic 3.5-5.2 1 sodium, serum 143 mmol/L LinkLogic 234-638 4463/11/0 1 urea nitrogen/creatinine ratio, serum 20 Link[facility]ic 12-28 1 eGFR if 91 mL/min/{1 .73_m2} LinkLogic >59 1 eGFR if not 79 mL/min/{1 .73_m2} LinkLogic >59 1 creatinine, serum 0.76 mg/dL LinkLogic 0.57-1.00 1 urea nitrogen, blood 15 mg/dL LinkLogic 8-27 1 blood glucose, random 81 mg/dL LinkLogic 65-99 1 basophil count, absolute 0.0 x10E3/uL LinkLogic 0.0-0.2 1 Eosinophil Absolute Count 0.1 X10E3/UL LinkLogic 0.0-0.4 1 monocyte count, blood, automated 0.6 X10E3/UL LinkLogic 0.1-0.9 1 lymphocyte count, blood, automated 1.3 X10E3/UL LinkLogic 0.7-3.1 1 Absolute Neutrophils 7.0 X10E3/UL LinkLogic 1.4-7.0 1 basophils as percent of blood leukocytes 0 % LinkLogic Not Estab. 1 eosinophils as percent of blood leukocytes 1 % LinkLogic Not Estab. 1 monocytes as percent of blood leukocytes 7 % LinkLogic Not Estab. 1 lymphocytes as percent of blood leukocytes 15 % LinkLogic Not Estab. 1 neutrophils as percent of blood leukocytes 77 % LinkLogic Not Estab. 1 platelet count 264 X10E3/UL LinkLog 471-552 7684/11/0 1 red blood cell distribution width 15.4 % LinkLogic 12.3-15.4 1 mean corpuscular hemoglobin concentration, RBC 33.1 G/DL LinkLogic 31.5-35.7 1 mean corpuscular hemoglobin, RBC 27.8 pg Link[facility]ic 26.6-33.0 1 mean corpuscular volume, RBC 84 fL LinkLogic 79-97 1 hematocrit, blood 38.7 % LinkLog 34.0-46.6 1 hemoglobin, blood 12.8 g/dL LinkLogic 11.1-15.9 1 erythrocyte (RBC) count 4.61 X10E6/UL LinkLog 3.77-5.28 1 leukocyte count, blood 9.1 X10E3/UL LinkLogic 3.4-10.8 6 lipoprotein, beta, serum, point, quantitative, calculated 84 mg/dL LinkLogic 0-99 6 very low density lipoproteins 25 mg/dL LinkLogic 5-40 6 HDL cholesterol, serum 54 mg/dL LinkLogic >39 6 triglyceride, serum, random 124 mg/dL LinkLogic 0-149 6 cholesterol, serum 163 mg/dL Link[facility]ic 908-004 3641/09/2 6 calcium, serum 9.1 mg/dL [facility]ic 8.7-10.3 6 carbon dioxide, venous blood 23 mmol/L Link[facility]ic 20-29 6 chloride, serum 105 mmol/L Link[facility]ic 96-106 6 potassium, serum 4.1 mmol/L Link[facility]ic 3.5-5.2 6 sodium, serum 142 mmol/L Link[facility] 581-516 6283/09/2 6 urea nitrogen/creatinine ratio, serum 19 [facility] 12-28 6 eGFR if 100 mL/min/{1 .73_m2} LinkLogic >59 6 eGFR if not 87 mL/min/{1 .73_m2} LinkLogic >59 6 creatinine, serum 0.70 mg/dL LinkLogic 0.57-1.00 6 urea nitrogen, blood 13 mg/dL LinkLogic 8-27 6 blood glucose, random 81 mg/dL LinkLogic 65-99 6 prothrombin time (patient) 11.0 s LinkLogic 9.1-12.0 6 international normalized ratio (INR) 1.0 LinkLogic 0.8-1.2 6 basophil count, absolute 0.0 x10E3/uL LinkLogic 0.0-0.2 6 Eosinophil Absolute Count 0.1 X10E3/UL LinkLogic 0.0-0.4 6 monocyte count, blood, automated 0.5 X10E3/UL LinkLogic 0.1-0.9 6 lymphocyte count, blood, automated 1.2 X10E3/UL LinkLogic 0.7-3.1 6 Absolute Neutrophils 5.0 X10E3/UL LinkLogic 1.4-7.0 6 basophils as percent of blood leukocytes 0 % LinkLogic Not Estab. 6 eosinophils as percent of blood leukocytes 2 % LinkLogic Not Estab. 6 monocytes as percent of blood leukocytes 7 % LinkLogic Not Estab. 6 lymphocytes as percent of blood leukocytes 18 % Link[facility] Not Estab. 6 neutrophils as percent of blood leukocytes 73 % LinkLogic Not Estab. 6 platelet count 273 X10E3/UL Link[facility] 591-997 8350/09/2 6 red blood cell distribution width 15.8 % Link[facility]ic 12.3-15.4 High 6 mean corpuscular hemoglobin concentration, RBC 33.2 G/DL Link[facility]ic 31.5-35.7 6 mean corpuscular hemoglobin, RBC 28.4 pg [facility]ic 26.6-33.0 6 mean corpuscular volume, RBC 86 fL Link[facility]ic 79-97 6 hematocrit, blood 39.2 % [facility] 34.0-46.6 6 hemoglobin, blood 13.0 g/dL LinkLogic 11.1-15.9 6 erythrocyte (RBC) count 4.57 X10E6/UL LinkLogic 3.77-5.28 6 leukocyte count, blood 6.8 X10E3/UL LinkLogic 3.4-10.8 HISTORY OF MEDICATION USE Medication Status Instructions Dates Provider Indications Com ments bupropion HCl 150 mg tablet extended release 24 hr active TAKE 1 TABLET BY MOUTH EVERY DAY 02/08 Lauren Connolly cyanocobalamin (vitamin B-12) 1,000 mcg tablet active TAKE 1 TABLET BY MOUTH EVERY DAY 03/04 Ivett Quezada Plavix 75 mg tablet active Take 1 table t by mouth once a day 01/16 Ace Taylor MD Xarelto 2.5 mg tablet completed TAKE 1 TABLET BY MOUTH TWICE A DAY FOR CARDIOVASCULAR PROTECTION 01/11 - 01/16 Ace Taylor MD Wellbutrin XL 150 mg tablet extended release 24 hr completed Take 1 tablet by mouth once a day 11/23 - 02/08 Lauren Connolly lisinopril 20 mg tablet active TAKE 1 TABLET BY MOUTH EVERY DAY 10/31 Archana Niraj ezetimibe 10 mg tablet active TAKE 1 TABLET BY MOUTH EVERY DAY 09/22 Archana Healy levothyroxine 100 mcg tablet active TAKE 1 TABLET BY MOUTH EVERY DAY 07/21 Yancy Murphy rosuvastatin 20 mg tablet active TAKE 1 TABLET BY MOUTH EVERY DAY 07/21 Yoseph Mcconnell Xarelto 2.5 mg tablet completed 1 tablet by mouth twice a day 01/12 - 01/11 Sakshi Erickson timolol maleate 0.25% drops active 2 drop into both eyes once a day 07/14 Ivett Quezada ferrous sulfate 325 mg (65 mg iron) tablet active tablet by mouth once a day 07/14 Ivett Quezada Vitamin B-12 1,000 mcg tablet completed 1 tablet by mouth once a day 07/14 - 03/04 Ivett Quezada amlodipine 5 mg tablet active 1 tablet by mouth once a day 07/14 Ivett Quezada CHANTIX STARTING MONTH CHAVA 0.5 MG X 11 & 1 MG X 42 ORAL TABLET completed One pack. Take as directed. 07/07 - 01/25 Ivett Pilar CHANTIX CONTINUING MONTH CHAVA 1 MG ORAL TABLET completed One pack. Take as directed 07/07 - 01/25 Ivett Quezada CLOPIDOGREL 75 MG TABLET completed TAKE 1 TABLET BY MOUTH EVERY DAY 01/21 - 07/14 Padmini Wilson NP HYDROCHLOROTHIAZIDE 12.5 MG ORAL CAPSULE completed ONE TAB. DAILY - 07/23 Ace Taylor MD ezetimibe 10 mg tablet completed Take 1 tablet by mouth once a day - 09/22 Elva Martinez Crestor 20 mg tablet completed 1 tablet by mouth once a day - 07/21 Padmini Wilson NP aspirin 81 mg tablet,delayed release (DR/EC) active Take 1 tablet by mouth once a day 01/23 Ivett Quezada pantoprazole 40 mg tablet,delayed release (DR/EC) active Take 1 tablet by mouth once a day 03/26 Sudha Michael ALPRAZOLAM 0.25 MG ORAL TABLET completed take 1 tab three times a day 03/26 - 01/25 Ivett Quezada levothyroxine 100 mcg tablet completed 1 tablet by mouth once a day 03/26 - 07/21 Ace Taylor MD lisinopril 20 mg tablet completed Take 1 tablet by mouth once a day 03/02 - 10/31 Jerome Lombardo LOVASTATIN 10 MG ORAL TABLET completed take 1 tab daily 03/26 - 03/27 Ace Taylor MD SOCIAL HISTORY Date Observation Value Provider social history E&M Smoking Histo ry: P atdewayne currently smokes every day. Ace Taylor MD social history reviewed E&M revi ewed - no changes required Ace Taylor MD social history E&M S moking History: P atient currently smokes every day. Ace Taylor MD social history reviewed E&M revi ewed - no changes required Ace Taylor MD smoking history, tot al pack/day 7 Susan Donovan cigarette use yes Susan cabrera smoking status Current every day smoker T annia Donovan smoking/tobacco cess ation, patient education and counseling yes Ivett Pilar smoking, year quit 2018 Ivett Danny camp number of years as a smoker 50 a Ivett Pilar smoking history, tot al pack/day 1/2 ppd Ivett Pilar cigarette use yes Ivett Breana lloyd smoking status Current every day smoker K natali Pilar social history E&M S moking History: P atdewayne currently smokes every day. P atdewayne has been counseled to quit. Ace Taylor MD social history reviewed E&M revi ewed - no changes required Ace Taylor MD smoking/tobacco cess ation, patient education and counseling yes Vanesa O'Nacho smoking, year quit 2018 Vanesa O' Nacho number of years as a smoker 50 a Vanesa O'Nacho smoking history, tot al pack/day 1/2 ppd Vanesa O'Nacho cigarette use yes Vanesa O'Nacho smoking status Current every day smoker M arsha O'Nacho social history E&M S moking History: Trevor hardwick currently smokes every day. Ace Taylor MD social history reviewed E&M revi ewed - no changes required Ace Taylor MD smoking status Current every day smoker Homer Hernandez smoking/tobacco cess ation, patient education and counseling yes Padmini Steve HOUGH number of years as a smoker 50 a Ivett Pilar smoking history, tot al pack/day 1/2 ppd Ivett Duttamohinderelder cigarette use yes Ivett Duttasolomondustyjeri lloyd smoking status Current every day smoker K natali Pilar social history E&M S moking History: P mulu is a former smoker. Ace Taylor MD social history reviewed E&M revi ewed - no changes required Ace Taylor MD smoking, year quit 2018 Tonsha Mo ss smoking history, tot al pack/day 1/2 PPD Tonsha Kim cigarette use yes Tonsha Kim smoking status Former smoker Tonsha Kim social history reviewed E&M revi ewed - no changes required Viviane Chavez RN smoking, year quit 2018 Linda Block smoking history, tot al pack/day 1/2 PPD Linda Block cigarette use yes Linda Block smoking status Former smoker Linda Casi goldberg quit smoking, stage quit Ace lunsford MD social history E&M S moking History: P mulu is a former smoker. Ace Taylor MD social history reviewed E&M revi ewed - no changes required Ace Taylor MD smoking history, tot al pack/day 1/2 PPD Sudha Michael smoking, year quit 2018 Sudha martinez cigarette use yes Sudha madera smoking status Former smoker Sudha Camp fraga FUNCTIONAL STATUS Date Observation Value Provider HRA, CV Assess/Plan, Angina (inactive) Management Plan continue current therapy Ace Taylor MD HRA, CV Assess/Plan, Angina (inactive) Management Plan continue current therapy Ace Taylor MD HRA, CV Assess/Plan, Angina (inactive) Management Plan continue current therapy Ace Taylor MD HRA, CV Assess/Plan, Angina (inactive) Management Plan continue current therapy Ace Taylor MD HRA, CV Assess/Plan, Angina (inactive) Management Plan continue current therapy Padmini Wilson NP HRA, CV Assess/Plan, Angina (inactive) Management Plan continue current therapy Ace Taylor MD HRA, CV Assess/Plan, Angina (inactive) Management Plan continue current therapy 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 Take 1 tablet by mouth every day Rosuvastatin 20 Mg Tablet (Rosuvastatin) ..... Take 1 tablet by mouth every day C HOL: 122 (07/15/2020) HDL: 57 (07/15/2020) Ace Taylor MD [id number],S, H er updated medication list for this problem includes: Lisinopril 20 Mg Tablet (Lisinopril) ..... Take 1 tablet by mouth every day Amlodipine 5 Mg Tablet (Amlodipine) ..... 1 tablet by mouth once a day Aspirin 81 Mg Tablet,delayed Release (dr/ec) (Aspirin) ..... Take 1 tablet by mouth once a day BP today: 153/52 P rior BP: 143/59 (05/19/2021) Labs Reviewed: C reat: 0.81 (07/15/2020) C hol: 122 (07/15/2020) HDL: 57 (07/15/2020) Ace Taylor MD [id number],S, Ace feldman MD [id number],S, Ace feldman MD [id number],C, d ue to han and ethoh 1 08/2019 was seen at [facility] by neurosurgeon. Ace Taylor MD [id number],S, u p todate on colon Ace Taylor MD [id number],S, 4 2 Ace Taylor MD [id number],S, m ild as and mod ai and midl tricuspid reg Ace Taylor MD [id number],S, Ace feldman MD [id number],S, Ace feldman MD [id number],S,T he patient is between 55-77 years old and has smoked at least 30 pack years. The patient is either a current smoker or has quit within the past 15 years. T he patient is recommended to have low dose CT scan for lung cancer screening. Has been counseled regarding the importance of tobacco cessation and abstinence. Shared decision making during this office visit included discussion of the benefits and harms of screening, possible future recommendations of follow-up diagnostic testing, and total amount of radiation exposure. The patient was recommended to have annual low dose CT scan for lung cancer screening and is willing to undergo diagnosis and treatment. Ace Taylor MD [id number],S,n o recnt syconpe, occ light higheeed P acemaker has been recommended. She has declined for now. Ace Taylor MD [id number],S, Ace feldman MD [id number],42 Ace trevino MD [id number],C,m ild as and mod ai and midl tricuspid reg Ace Taylor MD [id number],S, d ue to han and ethoh 1 08/2019 was seen at [facility] by neurosurgeon. Ace Taylor MD [id number],S, Ace feldman MD [id number],S, Ace feldman MD [id number],S, Ace feldman MD [id number],S,P RO NEG, severf in past Ace Taylor MD [id number],S, m ild on cath n eg nuc, score 114 Ace Taylor MD [id number],S, Ace feldman MD [id number],B, u p todate on colon Ace Taylor MD [id number],S,h as had le stents C ontinue vascular dose Xarelto Ace Taylor MD [id number],S, R enal artery duplex reviewed, mild CAROLINE, had angio in 19 40-50 on left Ace Taylor MD [id number],S, Ace feldman MD [id number],S, n ml a1c and amd home sleep Ace Taylor MD [id number],S,Continue vasc ular dose Xarelto Padmini Perez PERSONAL LINES ADVISOR [id number],S,U rged to consider cessation. Given info on auricular therapy. Padmini Perez NP [id number],S,P caroline has been recommended. She has declined for now. H er updated medication list for this problem includes: Amlodipine 5 Mg Tablet (Amlodipine) ..... 1 tablet by mouth once a day Aspirin 81 Mg Tablet,delayed Release (dr/ec) (Aspirin) ..... Take 1 tablet by mouth once a day Lisinopril 20 Mg Tablet (Lisinopril) ..... Take 1 tablet by mouth once a day Padmini Perez [place] [id number],S,Echo schedule d in May Padmini Perez [place] [id number],S,L ow dose lung CT scheduled in the future Padmini Perez [place] [id number],B,W ell controlled today , continue current meds H er updated medication list for this problem includes: Amlodipine 5 Mg Tablet (Amlodipine) ..... 1 tablet by mouth once a day Aspirin 81 Mg Tablet,delayed Release (/ec) (Aspirin) ..... Take 1 tablet by mouth once a day Lisinopril 20 Mg Tablet (Lisinopril) ..... Take 1 tablet by mouth once a day Padmini Larasanty HOUGH [id number],S,R enal artery duplex reviewed, mild CAROLINE, currently no intervention required Padmini Larasanty HOUGH [id number],C,nml a1c and a md home sleep Ace Taylor MD [id number],S, Ace feldman MD [id number],S, Ace feldman MD [id number],B, H er updated medication list for this problem includes: Ezetimibe 10mg (Ezetimibe) ..... Take 1 tablet by mouth daily Crestor 20 Mg Oral Tablet (Rosuvastatin calcium) ..... One tab. daily C HOL: 122 (07/15/2020) HDL: 57 (07/15/2020) Ace Taylor MD [id number],B, S he had successful right iliac artery stenting. Right leg weakness has been resolved. Ace Taylor MD [id number],B, d ue to han and kika 1 08/2019 was seen at [facility] by neurosurgeon. Ace Taylor MD [id number],S,better at jun e Ace Taylor MD [id number],B,up todate on colon Ace Taylor MD [id number],S, s x Ace Taylor MD [id number],S, n ml ef and sever but pro neg Ace Taylor MD [id number],B, Ace Taylor MD [id number],S, m ild on cath n eg nuc, score 114 Ace Taylor MD [id number],S, Ace feldman MD Cardiology: H er updated medication list for this problem includes: Ezetimibe 10 Mg Tablet (Ezetimibe) ..... Take 1 tablet by mouth every day Rosuvastatin 20 Mg Tablet (Rosuvastatin) ..... Take 1 tablet by mouth every day C HOL: 122 (07/15/2020) HDL: 57 (07/15/2020) Ace Taylor MD Cardiology: H er updated medication list for this problem includes: Lisinopril 20 Mg Tablet (Lisinopril) ..... Take 1 tablet by mouth every day Amlodipine 5 Mg Tablet (Amlodipine) ..... 1 tablet by mouth once a day Aspirin 81 Mg Tablet,delayed Release (dr/ec) (Aspirin) ..... Take 1 tablet by mouth once a day BP today: 153/52 P rior BP: 143/59 (05/19/2021) Labs Reviewed: C reat: 0.81 (07/15/2020) C hol: 122 (07/15/2020) HDL: 57 (07/15/2020) Ace Taylor MD Cardiology Ace Taylor MD Cardiology Ace Taylor MD Cardiology: d ue to han and ethoh 1 08/2019 was seen at [facility] by neurosurgeon. Ace Tyalor MD Cardiology: u p todate on colon Ace Taylor MD Cardiology: 4 2 Ace Taylor MD Cardiology: m ild as and mod ai and midl tricuspid reg Ace Taylor MD Cardiology Ace Taylor MD Cardiology Ace Taylor MD Cardiology:The patie nt is between 55-77 years old and has smoked at least 30 pack years. The patient is either a current smoker or has quit within the past 15 years. T he patient is recommended to have low dose CT scan for lung cancer screening. Has been counseled regarding the importance of tobacco cessation and abstinence. Shared decision making during this office visit included discussion of the benefits and harms of screening, possible future recommendations of follow-up diagnostic testing, and total amount of radiation exposure. The patient was recommended to have annual low dose CT scan for lung cancer screening and is willing to undergo diagnosis and treatment. Ace Taylor MD Cardiology:no recnt syconpe, occ light higheeed P acemaker has been recommended. She has declined for now. Ace Taylor MD Cardiology Ace Taylor MD :42 Ace Taylor MD :mild as and mod ai and midl tri cuspid reg Ace Taylor MD Cardiology;echo peni dnfg: d ue to han and ethoh 1 08/2019 was seen at [facility] by neurosurgeon. Ace Taylor MD Cardiology;echo pendontrell Taylor MD Cardiology;echo penidnfglynn Taylor MD Cardiology;echo penidnfglynn Taylor MD Cardiology;echo peni dnfg:PRO NEG, severf in past Ace Taylor MD Cardiology;echo peni dnfg: m ild on cath n eg nuc, score 114 Ace Taylor MD Cardiology;echo penidnfglynn Taylor MD Cardiology;echo peni dnfg: u p todate on colon Ace Taylor MD Cardiology;echo peni dnfg:has had le stents C ontinue vascular dose Xarelto Ace Taylor MD Cardiology;echo peni dnfg: R enal artery duplex reviewed, mild CAROLINE, had angio in 19 40-50 on left Ace Taylor MD Cardiology;echo penidnfg Ace Taylor MD Cardiology;echo peni dnfg: n ml a1c and amd home sleep Ace Taylor MD Cardiology:Continue vascular dos e Xarelto Padmini Perez NP Cardiology:Urged to consider cessation. Given info on auricular therapy. Padmini Perez NP Cardiology:Pacemaker has been recommended. She has declined for now. H er updated medication list for this problem includes: Amlodipine 5 Mg Tablet (Amlodipine) ..... 1 tablet by mouth once a day Aspirin 81 Mg Tablet,delayed Release (dr/ec) (Aspirin) ..... Take 1 tablet by mouth once a day Lisinopril 20 Mg Tablet (Lisinopril) ..... Take 1 tablet by mouth once a day Padmini Perez NP Cardiology:Echo scheduled in May Padmini Perez NP Cardiology:Low dose lung CT sche duled in the future Padmini Perez NP Cardiology:Well cont rolled today , continue current meds H er updated medication list for this problem includes: Amlodipine 5 Mg Tablet (Amlodipine) ..... 1 tablet by mouth once a day Aspirin 81 Mg Tablet,delayed Release (dr/ec) (Aspirin) ..... Take 1 tablet by mouth once a day Lisinopril 20 Mg Tablet (Lisinopril) ..... Take 1 tablet by mouth once a day Padmini Perez NP Cardiology:Renal art mayo duplex reviewed, mild CAROLINE, currently no intervention required Padmini Perez NP :nml a1c and amd home sleep Alexa Taylor MD Cardiology Ace Taylor MD Cardiology Ace Taylor MD Cardiology: H er updated medication list for this problem includes: Ezetimibe 10mg (Ezetimibe) ..... Take 1 tablet by mouth daily Crestor 20 Mg Oral Tablet (Rosuvastatin calcium) ..... One tab. daily C HOL: 122 (07/15/2020) HDL: 57 (07/15/2020) Ace Taylor MD Cardiology: S he had successful right iliac artery stenting. Right leg weakness has been resolved. Ace Taylor MD Cardiology: d ue to han and ethoh 1 08/2019 [facility]surgeon. Ace Taylor MD Cardiology:better at home Ace Taylor MD Cardiology:up todate on colon Sommers richard Taylor MD Cardiology: s x Ace Taylor MD Cardiology: n ml ef and sever but pro neg Ace Taylor MD Cardiology Ace Taylor MD Cardiology: m ild on cath n eg nuc, score 114 Ace Taylor MD Cardiology Ace Taylor MD :nml ef and sever but pro neg Sommers richard Taylor MD Ace Taylor MD Cardiology: S he had successful right iliac artery stenting. Right leg weakness has been resolved. Ace Taylor MD Cardiology Ace Taylor MD Cardiology: m ild on cath n eg nuc, score 114 Ace Taylor MD Cardiology Ace Taylor MD Cardiology:sx Ace Taylor MD Cardiology:due to br paula and ethoh 1 08/2019 was [facility] by neurosurgeon. Ace Taylor MD Cardiology: s evere, nml ef by echo Ace Taylor MD Cardiology Ace Taylor MD Cardiology:45% on the left France Taylor MD Cardiology Ace Taylor MD Cardiology Ace Taylor MD :nml a1c Ace Taylor MD Cardiology Follow up :Renal arteriogram 04/2019 1 . 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 2 . Only moderate stenosis of the proximal left renal artery that does not appear to be flow limiting. 3 . Mild plaquing of the right renal artery. 4 . 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 Padmini Wilson NP Cardiology Follow up : T he patient is between 55-77 years old and has smoked at least 30 pack years. The patient is either a current smoker or has quit within the past 15 years. T he patient is recommended to have low dose CT scan for lung cancer screening. Has been counseled regarding the importance of tobacco cessation and abstinence. Shared decision making during this office visit included discussion of the benefits and harms of screening, possible future recommendations of follow-up diagnostic testing, and total amount of radiation exposure. The patient was recommended to have annual low dose CT scan for lung cancer screening and is willing to undergo diagnosis and treatment. Padmini Wilson NP Cardiology Follow up :06/2020 was seen at [facility] by neurosurgeon. Padmini Wilson NP Cardiology Ace Taylor MD Cardiology:The patie nt is between 55-77 years old and has smoked at least 30 pack years. The patient is either a current smoker or has quit within the past 15 years. T he patient is recommended to have low dose CT scan for lung cancer screening. Has been counseled regarding the importance of tobacco cessation and abstinence. Shared decision making during this office visit included discussion of the benefits and harms of screening, possible future recommendations of follow-up diagnostic testing, and total amount of radiation exposure. The patient was recommended to have annual low dose CT scan for lung cancer screening and is willing to undergo diagnosis and treatment. Ace Taylor MD Cardiology Ace Taylor MD Cardiology:ave 49, l ow 39 with dzzy ,will stop water pill and holter, may need pacer Ace Taylor MD Cardiology:mild on c ath n eg nuc, score 114 Ace Taylor MD Cardiology: T he following medications were removed from the medication list: Hydrochlorothiazide 12.5 Mg Oral Capsule (Hydrochlorothiazide) ..... One tab. daily Her updated medication list for this problem includes: Aspirin Adult Low Dose 81 Mg Oral Tablet Delayed Release (Aspirin) ..... One tab by mouth daily Lisinopril 20 Mg Oral Tablet (Lisinopril) ..... One tab. daily BP today: 99/45 P rior BP: 130/82 (07/07/2019) Labs Reviewed: C reat: 0.76 (05/02/2019) C hol: 126 (05/02/2019) HDL: 74 (05/02/2019) Ace Taylor MD Cardiology: H er updated medication list for this problem includes: Zetia 10 Mg Oral Tablet (Ezetimibe) ..... One tab. daily Crestor 20 Mg Oral Tablet (Rosuvastatin calcium) ..... One tab. daily C HOL: 126 (05/02/2019) HDL: 74 (05/02/2019) Ace Taylor MD Cardiology: s isabel, lainel ef by echo Ace Taylor MD Cardiology: H er updated medication list for this problem includes: Levothyroxine Sodium 88 Mcg Oral Tablet (Levothyroxine sodium) ..... Take 1 tab daily Labs Reviewed: T SH: 1.430 (05/02/2019) Total T4: 9.4 (05/02/2019) C hol: 126 (05/02/2019) HDL: 74 (05/02/2019) Ace Taylor MD Cardiology: S he had successful right iliac artery stenting. Right leg weakness has been resolved. Ace Taylor MD Cardiology -ltr done :. C/o constipation and acid reflux. Sometimes feels like food isn't moving down her esophagus well. s cal had colonoscopy which was good few years ago constipation new since being on more meds r /t amlodipine possibly and will change to lisinopril 20 Viviane Chavez RN Cardiology -ltr done:40-50% left CAROLINE Viviane Chavez RN Cardiology -ltr done :CHOL: 126 (05/02/2019) HDL: 74 (05/02/2019) LDL 35 Viviane Chavez RN Cardiology -ltr done :She had successful right iliac artery stenting. Right leg weakness has been resolved. Viviane Chavez RN Cardiology -ltr done :Having trouble quitting smoking. w ants to take chantix and will prescribe Viviane Chavez RN Cardiology -ltr done :has been well controlled on current meds 4 0-50% left CAROLINE BP today: 130/82 P rior BP: 150/70 (05/01/2019) Viviane Chavez RN Cardiology [facility] with root and iliac stent: H er updated medication list for this problem includes: Zetia 10 Mg Oral Tablet (Ezetimibe) ..... One tab. daily Crestor 20 Mg Oral Tablet (Rosuvastatin calcium) ..... One tab. daily C HOL: 163 (03/27/2019) HDL: 54 (03/27/2019) Ace Taylor MD Cardiology [facility] with root and libra ac stent Ace Taylor MD Cardiology [facility] with root and libra ac stent Ace Taylor MD Cardiology [facility] with root and iliac stent: H er updated medication list for this problem includes: Hydrochlorothiazide 12.5 Mg Oral Capsule (Hydrochlorothiazide) ..... One tab. daily Aspirin Adult Low Dose 81 Mg Oral Tablet Delayed Release (Aspirin) ..... One tab by mouth daily Amlodipine Besylate 10 Mg Oral Tablet (Amlodipine besylate) ..... Take 1 tab a day BP today: 150/70 P rior BP: 140/64 (03/26/2019) Labs Reviewed: C reat: 0.70 (03/27/2019) C hol: 163 (03/27/2019) HDL: 54 (03/27/2019) Ace Taylor MD Cardiology [facility] with root and iliac stent: T he patient is between 55-77 years old and has smoked at least 30 pack years. The patient is either a current smoker or has quit within the past 15 years. T he patient is recommended to have low dose CT scan for lung cancer screening. Has been counseled regarding the importance of tobacco cessation and abstinence. Shared decision making during this office visit included discussion of the benefits and harms of screening, possible future recommendations of follow-up diagnostic testing, and total amount of radiation exposure. The patient was recommended to have annual low dose CT scan for lung cancer screening and is willing to undergo diagnosis and treatment. Ace Taylor MD Cardiology [facility] with root and iliac stent:90% right leg and 60% sma Ace Taylor MD Cardiology [facility] with root and iliac stent:45% on the left, mild on the righ Ace Taylor MD Cardiology [facility] with root and iliac stent:severe, nml ef Ace Taylor MD Cardiology [facility] with root and iliac stent:neg nuc, score 114 Ace Taylor MD Cardiology [facility] with root and libra ac stent Ace Taylor MD :severe Ace Taylor MD Cardiology New Patient Ace salas MD Cardiology New Patient Ace salas MD Cardiology New Patient :dx wit c t Ace Taylor MD Cardiology New Patie nt :The patient is between 55-77 years old and has smoked at least 30 pack years. The patient is either a current smoker or has quit within the past 15 years. T he patient is recommended to have low dose CT scan for lung cancer screening. Has been counseled regarding the importance of tobacco cessation and abstinence. Shared decision making during this office visit included discussion of the benefits and harms of screening, possible future recommendations of follow-up diagnostic testing, and total amount of radiation exposure. The patient was recommended to have annual low dose CT scan for lung cancer screening and is willing to undergo diagnosis and treatment. Ace Taylor MD Cardiology New Patie nt :svt 120 9 secs, as low as 39 n ot bad enough to ablate yetr Ace Taylor MD Date Name Complete Echo Low Dose Lung CT Holter Monitor 24 Hr Complete Echo Holter Monitor [address] Chest without con trast RPM (remote patient monitoring) Holter Monitor 24 Hr Renal Artery Duplex Holter Monitor 24 Hr Sleep Study Home Complete Echo CT Chest without con trast TSH, free T4, total T3 PROBNP, N TERMINAL Sleep Study Home CT Chest without con trast Complete Echo TSH, free T4, total T3 COMPREHENSIVE METABO LIC PANEL, W/EGFR HEMOGLOBIN A1c Monitor - Telemetry (Mobile Cardiac) LIPID PANEL COVID19 High Affinit y Antibodies (LC) IRON AND TOTAL IRON BINDING CAPACITY FERRITIN CBC (INCLUDES DIFF/P LT) Renal Artery Duplex Complete Echo Carotid Duplex Bilat eral CT Chest without con trast Holter Monitor 24 Hr Complete Echo Arterial Duplex to r /o pseudoanuerysm Holter Monitor 24 Hr THYROID PANEL WITH T SH, 3RD GENERATION Complete Echo PROTHROMBIN TIME WIT H INR LIPID PANEL CBC (INCLUDES DIFF/P LT) BASIC METABOLIC PANE L W/EGFR Low Dose Lung CT PET/CT Skull-Thigh Renal Angio - [facility] PROTHROMBIN TIME WIT H INR LIPID PANEL CBC (INCLUDES DIFF/P LT) BASIC METABOLIC PANE L W/EGFR Carotid Duplex Bilat eral Stress Regadenoson Complete Echo CT, Coronary Calcium Score Low Dose Lung CT HISTORY OF PROCEDURES Procedure Date Procedure Name Provider Procedure Notes S tatus Counseling LDCT Ace Taylor MD LATE DEC com pleted EKG Ace Taylor MD complete d Mobile Cardiac Telem etry - Tech Ace Taylor MD completed Mobile Cardiac Telem etry - Prof Ace Taylor MD completed EKG Ace Taylor MD complete d Counseling LDCT Ace Taylor MD one year com pleted Regadenoson, 4 units Ace Taylor MD completed Cardiolite, 2 units Ace Taylor MD completed SPECT Images Ace Taylor MD comple jourdan Stress EKG Ace Taylor MD complete d CT- Coronary CA score Ace Taylor MD completed Counseling LDCT Ace Taylor MD com pleted EKG Ace Taylor MD complete d Event Monitor Ace Taylor MD compl eted
--- OUTSIDE RECORDS SUMMARY | 2024-10-20 16:43 | XMS_ITS | Encounter Summary ---
Author Organization 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 2-4 times a month 06/14/2020 Average Number of Drinks Not on file 020 Frequency of Binge Drinking Not on file 06/01 Comments Unknown Sex and Gender Information Value Date Recorded Sex Assigned at Not on file Legal Sex Female 7:52 PM [employer] Gender Identity Not on file Sexual Orientation Not on file documented as of this encounter Plan of Treatment Not on file documented as of this encounter Visit Diagnoses Not on filedocumented in this encounter Care Teams Energy Crop Farmer Relationship Specialty Start Date End Date Owen Andrews MD [facility] [place] [address] PCP - General Family Medicine 06/13/20 documented as of this encounter
--- OUTSIDE RECORDS SUMMARY | 2024-10-20 16:43 | XMS_ITS | Clinical Summary ---
Author Organization [facility] Address [address] [place] [address] Care Team Providers Care Jewel Corner Brushing Machine Operator Name Role Phone Dee Prince MD Primary Care Provider [phone] Allergies Active Allergy Reactions Criticality Noted Date [...] 1 tablet (88 mcg total) by mouth tester wafer substrate before breakfast Active buPROPion XL (WELLBUTRIN XL) [...] low-dose CT chest November 20, 2023 at [facility] Paroxysmal SVT (supraventricular tachycardia) Atherosclerosis of aorta 02/22/2024 Overview (02/22/2024): Incidental atherosclerosis of the thoracic aorta noted on low-dose CT chest November 20, 2023 at [facility] H/O tobacco use, presenting hazards to [...] on last check. Continue statin and ezetimibe Encounters Date Type Department Care Team Description 09/19/2024 11:00 AM CDT Office Visit [facility] [address] [place] [phone] Esha Diallo NP Paroxysmal SVT (supraventricular tachycardia) (Primary Dx); Gastroesophageal reflux disease without esophagitis 08/27/2024 8:15 AM HARDBOARD SUPERVISOR Ancillary Procedure [facility] [address] [place] [address] [place] [phone] Dyspnea on exertion; Chest pain, unspecified type 08/21/2024 Results Follow-Up [facility] [address] [place] [address] [place] [phone] Esha Diallo NP 08/14/2024 1:30 PM HARDBOARD SUPERVISOR Ancillary Procedure [facility] [address] [place] [phone] Dyspnea on exertion; Chest pain, unspecified type 08/14/2024 1:00 PM HARDBOARD SUPERVISOR Office Visit [facility] [address] [place] [phone] Esha Diallo NP Dyspnea on exertion (Primary Dx); Chest pain, unspecified type; Labile hypertension from Last 3 Months Immunizations Immunization Administration Dates Next Due Influenza, Quadrivalent, Hig h Dose, Preservative Free, Intrr 03/25/2023,04/14/2022,03/24/2021,04/13,04/19/2014 Influenza, Trivalent, High D ose, Split, Preservative Free, Intramuscular 05/01/2019,04/27/2018,03/18/2017,04/04,03/29/2015,04/19/2014 Influenza, Trivalent, Preser vative Free, Intramuscular 07/02/2011 Pneumococcal Polysaccharide PPV23 05/19/2014 RSV Vaccine, Pref, Recombina nt, Subunit, Adjuvanted, PF, IM (Arexvy) 05/18/2023 Tdap 05/13/2012 ZOSTER LIVE 05/15/2011 Surgical History Surgery Date Site/Laterality Comments ESOPHAGOGASTRODUODENOSCOPY COLONOSCOPY BREAST SURGERY 2006 SECTION [id number] CHOLECYSTECTOMY 1995 Medical History Medical History Date Comments Hypertension High cholesterol Peripheral artery disease Hypothyroidism Hx of JENKINS that w as euthyroid and then turned underactive H/O radioactive iodine thyroid ablation GERD (gastroesophageal reflux disease) Anemia 2020 Anxiety Glaucoma 2019 Family History Medical History Relation Name Comments Lung cancer Brother No Known Problems Daughter 1 No Known Problems Daughter 2 Alcohol abuse Father Xavier Heart disease Father Xavier cardiovascular disease Father Xavier Cancer Mother Hyun Hypertension Mother Hyun Liver cancer Mother Hyun Alzheimer's disease Sister 1 Kateryna Diabetes Sister 1 Kateryna Memory loss Sister 1 Kateryna Diabetes Sister 2 Padmini Hypertension Sister 2 Padmini No Known Problems Son Relation Name Status Comments Brother Daughter 1 Alive Daughter 2 Alive Father Xavier Mother Hyun Sister 1 Kateryna Sister 2 Padmini Son Alive Social History Tobacco Use Types Packs/Day Years [...] on file Legal Sex Female 12:39 AM HARDBOARD SUPERVISOR Gender Identity Not on file Sexual Orientation Not on file Obstetrics History Last Filed Vital Signs Vital Sign Reading [...] 09/19/2024 10:56 AM CDT Plan of Treatment Health Maintenance Due Date Last Done Comments Hepatitis C Screening 1945 Osteoporosis Screening-Bone Density Scan 1945 Hepatitis B Screening 1964 Well Visit 65+ 2011 Zoster Vaccine (2 of 3) 07/10/2011 05/15/2011 Pneumococcal vaccine 65+ (2 of 2 - PCV) 05/19/2015 05/19/2014 DTaP/Tdap/Td Vaccine (2 - Td or Tdap) 05/13/2022 05/13/2012 Covid-19 Vaccine (2023-2 5 season) 2024 03/25/2023, 04/14/2022, 10/02/2021, Additional history exists Influenza Vaccine (#1) 2024 , 04/14/2022, 03/24/2021, Additional history exists Lung Cancer Screening 08/24/2024 02/22/2024, 024 Depression Screening 02/17/2025 02/18/2024, 02/18/20 24 Fall Risk Assessment 02/17/2025 02/18/2024 Procedures Procedure Name Priority Date/Time Associated Diagnosis Comments NM MPI SPECT (REST AND/OR STRESS) MULTIPLE STUDIES Schedule Routine, Read Routine (OP Routine) 08/27/2024 10:35 AM HARDBOARD SUPERVISOR Dyspnea on exertion Chest pain, unspecified type HOLTER MONITOR 48 HR Routine 08/18/2024 11:10 AM HARDBOARD SUPERVISOR Dyspnea on exertion Chest pain, unspecified type ECG 12-LEAD Routine 08/14/2024 1:40 PM HARDBOARD SUPERVISOR Chest pain, unspecified type HM LUNG CANCER SCREENING Routine 02/22/2024 3:27 PM CDT from Last 3 Months or Most Recently Relevant to Health Maintenance Results * NM MPI SPECT (Rest and/or Stress) Multiple Studies (08/27/2024 10:35 AM HARDBOARD SUPERVISOR) Anatomical Region Laterality Modality Body N/A Nuclear Medicine 08/27/2024 9:08 AM HARDBOARD SUPERVISOR Narrative 08/28/2024 7:37 AM HARDBOARD SUPERVISOR [facility] [address] [facility] [address], [place] [address] [facility] [address], [place] [address] P:[phone] P:[phone] MPI Imaging Report Patient Name: HOLLY SOLOMON : 1945 Study Date: 08/27/2024 9:08:04 AM Gender: F Tech: [facility] Location: [facility] Provider: ESHA DIALLO Height(Cm): 162.6 BSA: Weight(Kg): 55.3 BMI: 20.92 Order Provider: ESHA DIALLO PHYSICIAN: Referring Physician: Dr. Prince. HCG Physician: Radha Preston M.D., F.A.C.C. Interpreting Physician: Gianluca Mann M.D.,F.A.C.C. Stress Supervision: Curry Morley M.D., F.A.CSpC. PROCEDURES: Exercise SPECT Report: Myocardial perfusion imaging [...] SPECT. Electronically Signed By: Curry Morley MD, [facility] 08/27/2024 3:37:54 PM HARDBOARD SUPERVISOR Electronically Signed By: Gianluca Mann MD, [facility] 08/28/2024 7:35:23 AM HARDBOARD SUPERVISOR Procedure Note Gianluca Mann MD - 08/28/2024 [facility] [address], [place] [address] [facility] [address], [place] [address] P:[phone] P:[phone] MPI Imaging Report Patient Name: HOLLY SOLOMON : 1945 Study Date: 08/27/2024 9:08:04 AM Gender: F Tech: [facility] Location: [facility] Provider: ESHA DIALLO Height(Cm): 162.6 BSA: Weight(Kg): 55.3 BMI: 20.92 Order Provider: ESHA DIALLO PHYSICIAN: Referring Physician: Dr. Prince. HCG [...] SPECT. Electronically Signed By: Curry Morley MD, [facility] 08/27/2024 3:37:54 PM HARDBOARD SUPERVISOR Electronically Signed By: Gianluca Mann MD, [facility] 08/28/2024 7:35:23 AM HARDBOARD SUPERVISOR Esha Diallo NP IMG NM PROCEDURES Final R esult * 48 HR Holter Monitor (08/18/2024 11:10 AM HARDBOARD SUPERVISOR) Anatomical Region Laterality Modality Electrocardiogra phy Narrative 08/20/2024 3:05 PM HARDBOARD SUPERVISOR AMBULATORY FOOTBALL COACH REPORT Patient Name: Holly Solomon Date of : 1945 Requesting Physician: [...] was used to complete this document, therefore, exterior designer variances may occur. Curry Morley MD, [facility] 08/20/24 Esha Diallo NP CV CARDIAC SERVICES PROCE DUR Final Result * ECG 12 lead (08/14/2024 1:40 PM HARDBOARD SUPERVISOR) 08/14/2024 1:40 PM HARDBOARD SUPERVISOR Esha Diallo NP ECG ORDERABLES Edited Re sult - Final * LUNG CANCER SCREENING (02/22/2024 3:27 PM CDT) Scribed Lung Cancer Screening Normal Historical Provider HEALTH MAINTENANCE Final Result from Last 3 Months or Most Recently Relevant to Health Maintenance Insurance [facility] MEDICARE ADVANTAGE [facility] MEDIC[facility] Address: [facility] [address] [place] [address] [facility] MEDICARE ADVANTAGE [facility] MED[facility] Address: [facility] [address] [place] [address] Care Teams Jewel Corner Brushing Machine Operator Relationship Specialty Start Date End Date Dee Prince MD [address] [place] [address] PCP - General Family Medicine 08/14/24
--- OUTSIDE RECORDS SUMMARY | 2024-10-20 16:43 | XMS_ITS | Encounter Summary ---
Author Organization [facility] Address [address] [place] [address] Care Team Providers Care Athlete Manager Name Role Phone Owen Andrews MD Primary Care Provider [phone] Encounter Details Date Type Department Care Team (Late st Contact Info) Description 06/13/2020 Ophth Exam [facility] [address] [facility], [place] [phone] Heraclio Head MD [address] [place] [address] [place] [address] Social History Tobacco Use Types Packs/Day Years Used Date Smoking Tobacco: Never Assessed AUDIT-C Answer Date Recorded Q1: How often do you have a drink containing alc ohol? 2-4 times a month 06/14/2020 Average Number of Drinks Not on file 020 Frequency of Binge Drinking Not on file 06/01 Comments Unknown Sex and Gender Information Value Date Recorded Sex Assigned at Not on file Legal Sex Female 7:52 PM PE TEACHER Gender Identity Not on file Sexual Orientation Not on file documented as of this encounter Functional Status documented as of this encounter Plan of Treatment Not on file documented as of this encounter Visit Diagnoses Not on filedocumented in this encounter Care Teams Athlete Manager Relationship Specialty Start Date End Date Owen Andrews MD [facility] [place] [address] PCP - General Family Medicine 06/13/20 documented as of this encounter
--- OUTSIDE RECORDS SUMMARY | 2024-10-20 16:43 | XMS_ITS | Clinical Summary ---
Author Organization [facility] [employer] Address [address] [facility] [place] [address] Care Team Providers Care Fire Lieutenant Marine Name Role Phone Owen Andrews MD Primary Care Provider [phone] Source Comments [facility] [employer]non-owned Affiliates and Associated Physician Practices is amultiple site organization consisting of ambulatory clinics and hospital sitesin [place], [place]. This disclosure is being madepursuant to the Care Everywhere program and may not contain all information available regarding this patient. Last updated 18.[facility] [employer] Allergies No known active allergies Medications * Be aware that medications may not be up to date on this document. Alwaysverify current medications with the patient. acetaminophen (TYLENOL) 500 MG tablet Take 2 tablets by mouth every 8 hours Maximum allowable Acetaminophen amount = 4 Grams (4000 mg) / 24 hours. 0 Active Additional Information Patient not taking.Reported on 07/05/2020 albuterol HFA (PROVENTIL;TROY TOLIN;PROAIR) 108 (90 Base) MCG/ACT inhaler Inhale 2 puffs by mouth every 4 hours as needed for Wheezing 1 Inhaler 0 Active bacitracin (BACITRACIN) 500 UNIT/GM ointment Apply to affected area 3 times daily 0 Active Additional Information Patient not taking.Reported on 07/05/2020 docusate sodium (COLACE) 100 MG capsule Take 1 capsule by mouth once daily 0 Active Additional Information Patient not taking.Reported on 07/05/2020 oxyCODONE, immediate release, (ROXICODONE) 5 MG tablet Take 1 tablet by mouth every 4 hours as needed 12 tablet 0 Active Additional Information Patient not taking.Reported on 07/05/2020 Active Problems Problem Noted Date Diagnosed Date Gastroesophageal reflux disease 07/05/2020 Fall 06/14/2020 Left shoulder pain 06/14/2020 Pulmonary nodules 06/14/2020 Hepatic cyst 06/14/2020 Renal calculus, right 06/14/2020 IVH (intraventricular hemorrhage) 06/14/2020 Scalp laceration 06/14/2020 Orbital wall fracture 06/14/2020 Maxillary sinus fracture 06/14/2020 Elevated ETOH level 06/14/2020 Acute blood loss anemia 06/14/2020 Avulsion of skin of left hand 06/14/2020 Subarachnoid hemorrhage 06/13/2020 Atherosclerosis of [place] ar teries of extremities with intermittent claudication, unspecified extremity 05/01/2019 Atherosclerotic heart diseas e of [place] coronary artery without angina pectoris 05/01/2019 Aortic regurgitation 04/10/2019 Other nonspecific abnormal finding of lung field 04/10/2019 Essential (primary) hypertension 03/26/2019 Hyperlipidemia 03/26/2019 Hypothyroidism, unspecified 03/26/2019 Overview (07/05/2020): was rxed for goite with I 131 Renal artery stenosis 06/03/2018 Immunizations Immunization Administration Dates Next Due FLU VACCINE TRI IIV3 SPLIT PF IM (FLUVIRIN) 07/2011 INFLUENZA VACCINE 04/13/2020 INFLUENZA VACCINE, HIGH-DOSE , QUADR. (FLUZONE HIGH-DOSE QUADRIVALENT; 65Y+), 0.7 ML (HD-IIV4) 04/19/2014 PNEUMOCOCCAL PPSV23 05/19/2014 TDAP (7yrs+) 05/13/2012 ZOSTER VACCINE, LIVE 05/15/2011 Family History Medical History Relation Name Comments CAD (Coronary Artery Disease) Father Cancer - Liver Mother Relation Name Status Comments Father Mother Social History Tobacco Use Types Packs/Day Years Used Date Smoking Tobacco: Every Day Cigarettes 0.5 50 Smokeless Tobacco: Never Tobacco Cessation:Ready to Q uit: No; Counseling Given: No Alcohol Use Standard Drinks/Week Comments Yes 0 [...] on file Legal Sex Female 7:52 PM SURGICAL INSTRUMENT MAKER Gender Identity Not on file Sexual Orientation Not on file Last Filed Vital Signs Vital Sign Reading Time Taken Comments Blood Pressure 150/62 07/05/2020 12:58 PM SURGICAL INSTRUMENT MAKER Pulse 51 07/05/2020 12:58 PM SURGICAL INSTRUMENT MAKER Temperature 36.8 C (98.2 F) 06/16/2020 8:04 AM SURGICAL INSTRUMENT MAKER Respiratory Rate 18 06/16/2020 8:04 AM SURGICAL INSTRUMENT MAKER Oxygen Saturation 100% 07/05/2020 12:58 PM SURGICAL INSTRUMENT MAKER Inhaled Oxygen Concentration - - Weight 56.2 kg (124 lb) 07/05/2020 12:58 PM SURGICAL INSTRUMENT MAKER Height 162.6 cm (5' 4 ) 07/05/2020 12:58 PM SURGICAL INSTRUMENT MAKER Body Mass Index 21.28 07/05/2020 12:58 PM SURGICAL INSTRUMENT MAKER Plan of Treatment Health Maintenance Due Date Last Done Comments BONE DENSITY TESTING 1945 HEPATITIS C SCREENING 05/31[birth year]1964 ZOSTER VACCINE (2 of 3) 07/10/2011 05/15/2011 PNEUMOCOCCAL VACCINE 50+ (2 of 2 - PCV) 05/19/2015 05/19/2014 Respiratory Syncytial Virus (RSV) Vaccine Pt: or over 60 yrs (1 - 1-dose 75+ series) 2021 DTAP/TDAP/TD VACCINES (2 - T d or Tdap) 05/13/2022 05/13/2012 COVID-19 VACCINE ( - 2023-2 5 season) 2024 DEPRESSION SCREENING 07/02/2024 MEDICARE AWV CALENDAR YEAR 2024 INFLUENZA VACCINE (Season Ended) 2025 04/13/2020, 04/19/2014, 07/02/2011 HEPATITIS B VACCINE Aged Out No longe r eligible based on patient's age to complete this topic HIB VACCINE Aged Out No longer eligi ble based on patient's age to complete this topic HPV VACCINE Aged Out No longer eligi ble based on patient's age to complete this topic MENINGOCOCCAL (Group B) VACCINE SHARED DECISION-MAKING Aged Out No longer eligible based on patient's age to complete this topic MENINGOCOCCAL GROUPS A/C/Y/W VACCINE Aged Out No longer eligible b ased on patient's age to complete this topic Insurance Advance Directives * Full Code (Latest Code Status on File) Date Activated Date Inactivated Comments 06/14/2020 12:03 AM 06/16/2020 12:40 PM Care Teams Fire Lieutenant Marine Relationship Specialty Start Date End Date Owen Andrews MD [address] [place] [address] [address] [place] [phone] PCP - General Family Medicine 06/13/20
--- OUTSIDE RECORDS SUMMARY | 2024-10-20 16:43 | XMS_ITS | Clinical Summary ---
Author Organization [facility] Address [facility] [place] [address] Care Team Providers Care Fine Arts Instructor Name Role Phone Owen Stephenson MD Primary Care Provider [phone] James Vasquez MD Unavailable Allergies No known active allergies Medications levothyroxine 88 MCG tablet Take 88 mcg by mouth daily. 4 05/12/2018 Active lovastatin 10 MG tablet Take 10 mg by mouth daily. 4 04/10/2018 Active pantoprazole 40 MG tablet Take 40 mg by mouth daily. 4 03/07/2018 Active amlodipine 5 MG tablet Take 1 tablet by mouth daily. 05/24/2018 Active ALPRAZolam 0.25 MG tablet Take 1 tablet by mouth 3 (three) times daily as needed. 0 04/18/2018 Active Active Problems Problem Noted Date Diagnosed Date Renal artery stenosis 06/03/2018 Family History Medical History Relation Comments Heart Disease Father alcholism Father Hypertension Mother liver cancer Mother Relation Status Comments Father Mother Social History Tobacco Use Types Packs/Day Years Used Date Smoking Tobacco: Former Cigarettes Smokeless Tobacco: Never Alcohol Use Standard Drinks/Week Comments Yes 0 (1 standard drink = 0.6 oz pur e alcohol) Comments Unknown Sex and Gender Information Value Date Recorded Sex Assigned at Not on file Legal Sex Female 2:16 PM CDT Gender Identity Not on file Sexual Orientation Not on file Last Filed Vital Signs Vital Sign Reading Time Taken Comments Blood Pressure 158/60 05/30/2018 8:02 AM INTERNET PROGRAMMER Pulse 65 05/30/2018 8:02 AM INTERNET PROGRAMMER Temperature - - Respiratory Rate - - Oxygen Saturation - - Inhaled Oxygen Concentration - - Weight 59.4 kg (131 lb) 05/30/2018 8:02 AM INTERNET PROGRAMMER Height 162.6 cm (5' 4 ) 05/30/2018 8:02 AM INTERNET PROGRAMMER Body Mass Index 22.49 05/30/2018 8:02 AM INTERNET PROGRAMMER Plan of Treatment Health Maintenance Due Date Last Done Comments ASCVD LDL 1945 ASCVD Statin 1945 Hepatitis C 1964 DTaP, Tdap and Td Vaccines ( 1 - Tdap) 1965 Pneumococcal Vaccine: 50+ Ye ars (1 of 1 - PCV) 1996 Zoster Vaccines (1 of 2) 1996 Annual Medicare Wellness Visit 2011 Dexa Scan (General) 2011 RSV Immunization or 60+ Years (1 - 1-dose 75+ series) 2021 COVID-19 Vaccine ( - 2023-2 5 season) 2024 Meningococcal B Vaccine Aged Out No l onger eligible based on patient's age to complete this topic Meningococcal Vaccine Aged Out No raymond raúl eligible based on patient's age to complete this topic RSV Immunizations Under 20 Months Aged Out No longer eligible based on patient's age to complete this topic Insurance Care Teams Fine Arts Instructor Relationship Specialty Start Date End Date Owen Stephenson MD [address] [place] [address] PCP - General FAMILY PRACTICE 04/25/18 James Vasquez MD [facility]. [id number] [place] [address] Referring Physician VASCULAR SURGERY 04/25/18
== END 2024-10-20 14:45 | disposition home or self-care (01) ==
LOC: ANHIMG 14:46
PROVIDERS: PCP Family Medicine; Visit Provider Family Medicine
DX: M85.89 Other specified disorders of bone density and structure, multiple sites (principal); Z78.0 Asymptomatic menopausal state; Z13.820 Encounter for screening for osteoporosis
CPT/HCPCS: 77080

== ENCOUNTER 2025-04-08 19:02 | Emergency (ER) | payer MEDICARE, SELFPAY ==
[2025-04-08] VITALS (21 sets, daily range): BP systolic 121–157; BP diastolic 38–67; PULSE 52–113; RESP 11–21; TEMP 36.1; O2SAT 100
--- NOTE | ~2025-04-08 | CT_ITS ---
EXAMINATION: CTA abdomen pelvis DATE: 04/09/2025 01:33 INDICATION: Gastrointestinal bleed. Guaiac positive anemia. TECHNIQUE: Computed tomographic angiography (CTA) of the abdomen and pelvis was performed with 100 mL Omnipaque-350 intravenous contrast. Additional 3D reconstructions utilizing rotating maximum intensity projection (MIP) were performed. Automated exposure control and iterative reconstruction technique were employed. The dose-length product was 341.28 mGy-cm. COMPARISON: None FINDINGS: Minimal streaky bibasilar atelectasis. Heart size is normal. No pericardial or pleural effusion. A few low-attenuation hepatic cysts measuring up to 1.8 cm and the left hepatic lobe. Spleen, pancreas, bilateral adrenal glands and left kidney are normal. 3 mm nonobstructing stone at a lower pole calyx of the right kidney. 6 mm right renal cyst. There is mild colonic diverticulosis with a sigmoid predominance. There is no adjacent inflammatory change to suggest diverticulitis. No bowel obstruction or evident active contrast extravasation of the bowels. Bladder is normal. The uterus is not identified and has likely been surgically resected. No free intraperitoneal gas or fluid. No pathologically enlarged abdominal or pelvic lymphadenopathy.. There is calcified atherosclerosis of the normal caliber abdominal aorta and many of the other arteries. Moderate 50-70% stenosis at the origin of the right renal artery and severe >70% stenosis at the origins of the superior mesenteric and left renal arteries. There is stenting at the origin of the right common iliac artery. Mild lumbar and lower thoracic spondylosis. Prominent Schmorl's node along the superior endplate of L1. IMPRESSION: 1. Mild colonic diverticulosis with no evident active contrast extravasation in the bowels. 2. Scattered atherosclerotic disease with moderate stenosis at the origin of the right renal artery and severe stenosis at the origin of the superior mesenteric and left renal arteries. Reviewed, dictated and finalized at location A. IMPRESSION: 1. Mild colonic diverticulosis with no evident active contrast extravasation in the bowels. 2. Scattered atherosclerotic disease with moderate stenosis at the origin of th e right renal artery and severe stenosis at the origin of the superior mesenter ic and left renal arteries.
--- NOTE | ~2025-04-08 | XR_ITS ---
Examination: XR chest 1V portable Clinical History: SOB, anemia, tachy Comparison: CT chest 05/16/2024 Technique: Portable AP Findings: Heart size normal. Emphysema. Lungs clear. No acute bony abnormality. IMPRESSION: 1. No acute cardiopulmonary findings given portable technique. Reviewed, dictated and finalized at location R.
[2025-04-08 21:50] LABS: Hematocrit 25.6 % (37.0-47.0); Immature Granulocyte Percent A 0.5 % (0-0.5); Lymphocytes Absolute Auto 0.97 K/mm3 (0.9-3.2); Mean Corpuscular HGB Conc 27.0 g/dl (32-36); Mean Corpuscular Hemoglobin 19.8 pg (26-34); Mean Corpuscular Volume 73.4 fl (80-100); Nucleated Red Blood Cells Absolute Auto 0.000 K/mm3 (0.0-0.012); Nucleated Red Blood Cells Perc 0.0 % (0.0-0.2); Platelet Count Result 369 k/mm3 (150-375); Red Blood Count 3.49 M/mm3 (4.2-5.4); White Blood Count 9.7 K/mm3 (4.5-10.0)
[2025-04-08 21:59] LABS: Anion Gap 7 mmol/L (4-12); Blood Urea Nitrogen 14 mg/dL (7-17); Calcium 8.7 mg/dL (8.4-10.2); Carbon Dioxide 22 mmol/L (22-30); Chloride 108 mmol/L (98-107); Estimated CRCL calculation 43 ml/min; Estimated Glomerular Filt Rate > 60; Glucose 93 mg/dL (65-110); Potassium 4.1 mmol/L (3.4-5.0); Sodium 137 mmol/L (137-145)
[2025-04-08 22:06] LABS: INR 1.3; Partial Thromboplastin Time 28.2 Seconds (22.3-36.8); Prothrombin Time 15.8 Seconds (11.1-14.7)
[2025-04-08 22:10] LABS: Hemoglobin 6.9 g/dL (12.0-15.0)
[2025-04-08 22:12] LABS: Band Neutrophils Percent 0 % (0-6); Hypochromasia 1+; Microcytosis 1+ (NORMAL); Schistocytes None Seen
[2025-04-08 22:13] LABS: Anisocytosis 3+; Polychromasia 1+
--- NOTE | 2025-04-08 23:07 | ED_ITS ---
HPI - Recheck/Abnormal Lab/Rx General Chief Complaint: Recheck/Abnormal Lab/Rx Stated Complaint: hemoglobin 7 Time Seen by Provider: 04/08/25 21:51 Source: patient and family (Daughter Terri) Mode of arrival: ambulatory Limitations: no limitations History of Present Illness HPI narrative: Patient presents with concern for anemia. She saw the physician assistant federal public defender are really not are in her primary care physician, Dr. Barry office on Sunday you obtained outpatient lab work. This resulted today and she was called being notified that her hemoglobin was 7.0. She has a history of anemia in January 2020 which she received a blood transfusion without complications/blood transfusion reaction. She had seen her side gluer (Dr Preston/Latoya) who had advised that she follow-up her primary care physician for her anemia especially because she has a referral appointment to see a aluminum pourer due to low hemoglobin in November however this appointment is to occur told this summer. This scheduled to be with Dr. Nick. Patient has a trend of their lab work from [facility]: Hgb 05/15/23: 13.2 Hgb 11/21/23 11.18 Hgb 05/16/24 12.8 Hgb 12/25/24 9.5 She has been taking iron supplementation (ferrous sulfate) BID daily although not with vitamin-C particularly; has also been using Pepto-Bismol and folate. She denies feeling lightheaded but will occasionally get dizzy. She had also been short of breath and the albuterol that she was advised to use did not seem to help appear. She had a colonoscopy performed in 2019 due to her anemia at that time. This was performed by surface hydrologist Dr. Salazar who said she was clear. Patient reports that she has been feeling weak although particularly worse in the morning which she found strange. She otherwise denies any clear source blood loss: No hematemesis matter review does hematochezia melena normal bright red blood per rectum, vaginal bleeding. She notes that her stools are dark given the iron and Pepto bismol that she takes but otherwise formed (and in fact hasGI issues due to side effect of iron). Related Data Home Medications ?Medication ?Instructions ?Recorded ?Confirmed ?Last Taken ?Type ezetimibe 10 mg tablet 10 mg PO DAILY 02/29/2012/24 Unknown History lisinopril 20 mg tablet 20 mg PO DAILY 02/29/2012/24 Unknown History rosuvastatin 20 mg tablet 20 mg PO DAILY 02/29/2012/24 Unknown History aspirin 81 mg chewable tablet 81 mg PO DAILY 05/07/24 04/06/25 Unknown History bupropion HCl 150 mg 24 hr tablet, 150 mg PO QAM 05/0704/06/25 Unknown History extended release latanoprost 0.005 % eye drops 1 drp EACH EYE QPM 05/0704/06/25 Unknown History Allergies Allergy/AdvReac Type Severity Reaction Status Date / Time No Known Allergies Allergy Unknown Verified 04/06/25 14:52 [facility] Past Medical History Medical History History of blood transfusion 2019, for anemia Anemia H/O radioactive iodine thyroid ablation Solitary pulmonary nodule on lung CT H/O vaginal delivery Stenosis of right femoral artery Hyperlipidemia Hypothyroidism HTN (hypertension) with goal to be determined Peripheral vascular disease Surgical History Surgical History History of colonoscopy 2019, Dr Salazar H/O section H/O: hysterectomy Status post right breast lumpectomy History of laparoscopic cholecystectomy Family History Family History Mother Liver cancer Father Alcohol abuse Cardiovascular disease Social History Social History Smoking packs per day: 0.25 Smoking cigarettes per day: 5.0 Years smoked: 55 Smoking pack-years: 13.75 Smoking status: Former smoker Tobacco type: cigarettes Second hand tobacco smoke exposure: Yes Alcohol intake: never Substance use: never Gender identity (if verbalized by the patient): Male Spiritual care concerns: No Exam 2 Narrative: GENERAL: Well-appearing, well-nourished, and in no acute distress. HEAD: Normocephalic, atraumatic. EYES: Non injected, non icteric ENT: Nares clear, no rhinorrhea or epistaxis. Gross auditory acuity intact. NECK: Supple. No meningismus. CHEST: Speaking in full sentences. No respiratory distress. HEART: Regular rate and rhythm at the time of my exam ABDOMEN: Soft, nondistended. No rigidity or guarding. Not peritoneal. No tenderness to palpation throughout. JUAN: No active bleeding. External nonthrombosed hemorrhoids. Normal rectal tone. No palpable masses. FOBT/guiaic positive x2 windows/dominguez on bedside assay. EXTREMITIES: Normal range of motion. No lower extremity edema. SKIN: Warm, dry, no rash. NEURO: No focal deficits. Alert and oriented. Answering questions. Following commands. Normal speech without aphasia or dysarthria. PSYCH: Normal mood and affect. Course Vital Signs Vital signs: Vital Signs Temperature 97.0 F L 04/08/25 19:05 Pulse Rate 113 H 04/08/25 19:05 Respiratory Rate 20 04/08/25 19:05 Blood Pressure 157/38 H 04/08/25 19:05 Pulse Oximetry 100 04/08/25 19:05 Oxygen Delivery Room Air 04/08/25 19:05 Temperature 97.9 F 04/09/25 02:51 Pulse Rate 54 L 04/09/25 03:31 Respiratory Rate 17 04/09/25 03:31 Blood Pressure 140/49 L 04/09/25 03:31 Pulse Oximetry 100 04/09/25 03:31 Oxygen Delivery Room Air 04/08/25 19:05 MDM - Recheck/Abnormal Lab/Rx MDM Narrative Medical decision making narrative: This is an exceedingly pleasant 79-year-old female presents after being told by her PCP to present to emergency department given hemoglobin found to be 7. 0 lab work. Patient has a history of anemia requiring blood transfusion in 2019 without complication. Colonoscopy had been performed Shortly thereafter without concern. Patient has documentation of essentially downtrending Hgb since 2022. She reports that she has become more symptomatic in terms of occasional dizziness shortness of breath weakness. Denies any obvious source of blood loss. In the emergency department she is afebrile with vital signs that show tachycardia. She also has an acceptable BP (MAP 77) although with wide pulse pressure given SBP elevated and DBP hypotensive. No leukocytosis. She has a microcytic anemia <7.0. Blood product transfusion I have discussed the proposed blood product transfusion with the patient and her daughter. I have informed the patient regarding potential risks of blood product transfusion which, though rare, include transfusion reaction, hepatitis, and HIV. The patient has been given the opportunity to ask questions about the need to be transfused and possible outcomes of not receiving this treatment. Patient has verbally agreed to undergo transfusion. I obtained signed consent and place it in the patient's chart. Order was placed for transfusion of 1 unit of packed red blood cells. Given hemoglobin was only 0.1 less than 7, will not obtain post infusion H&H. Given positive guaiac/FOBT test, will proceed with CT imaging of abdomen and pelvis although notably there is large suspicion of false positive given she takes both iron and Pepto-Bismol. INR 1.3. She is on aspirin but no other anticoagulation per review of med list. CPK normal. Given patient's EKGS, Considered digoxin effect/toxicity, beta-agonists (isoprenaline, adrenaline) but not on these medications, also considered myocardial ischemia, myocarditis (though no chest pain), or cardiac surgery (not applicable). Pre transfusion labs had been obtained. Advised that she follow-up with her primary care physician as contacting aluminum pourer Dr Nick's office only to update and see if this changed the timing of the appointment she is currently scheduled for in June. She otherwise tolerates transfusion well without complication and is stable for discharge. Differential Diagnosis Differential diagnosis: Likely other (considered the spectrum of anemia including broad categories of production, storage, destruction/loss) Lab Data Attestation: I reviewed the patient's lab results. 04/08/25 21:41 04/08/25 21:41 Labs: Lab Results 04/08/25 04/09/25 Range/Units 21:41 21:41 WBC 9.7 (4.5-10.0) K/mm3 RBC 3.49 L (4.2-5.4) M/mm3 Hgb 6.9 L* (12.0-15.0) g/dL Hct 25.6 L (37.0-47.0) % MCV 73.4 L (80-100) fl MCH 19.8 L (26-34) pg MCHC 27.0 L (32-36) g/dl RDW 22.0 H (11.5-14.5) % Plt Count 369 (150-375) k/mm3 MPV 8.8 (7.4-10.4) fl Immature Gran % (Auto) 0.5 (0-0.5) % Neut % (Auto) 78.8 H (45.5-73.1) % Lymph % (Auto) 10.0 L (18.3-44.2) % Dare % (Auto) 9.2 H (2.6-8.5) % Eos % (Auto) 0.9 (0-4.4) % Baso % (Auto) 0.6 (0.2-1.2) % Lymph # (Auto) 0.97 (0.9-3.2) K/mm3 Dare # (Auto) 0.9 H (0.1-0.6) K/mm3 Eos # (Auto) 0.1 (0-0.3) K/mm3 Baso # (Auto) 0.1 (0.0-0.1) K/mm3 Abs Immat Gran (auto) 0.05 H (0.00-0.031) K/mm3 Absolute Neuts (auto) 7.6 H (1.3-6.7) K/mm3 Absolute Nucleated RBC 0.000 (0.0-0.012) K/mm3 Band Neutrophils % 0 (0-6) % Nucleated RBC % 0.0 (0.0-0.2) % Platelet Estimate Adequate (Adequate) Polychromasia 1+ Hypochromasia 1+ Anisocytosis 3+ Microcytosis 1+ (NORMAL) Schistocytes None seen PT 15.8 H (11.1-14.7) Seconds INR 1.3 APTT 28.2 (22.3-36.8) Seconds Sodium 137 (137-145) mmol/L Potassium 4.1 (3.4-5.0) mmol/L Chloride 108 H (98-107) mmol/L Carbon Dioxide 22 (22-30) mmol/L Anion Gap 7 (4-12) mmol/L BUN 14 D (7-17) mg/dL Creatinine 0.81 (0.7-1.0) mg/dL Estim Creat Clear Calc 43 ml/min Estimated GFR > 60 (59 - ) Glucose 93 (65-110) mg/dL Calcium 8.7 (8.4-10.2) mg/dL Iron 28 L (37-170) ug/dL TIBC 425 (261-462) ug/dL % Saturation 7 L (20-50) % Transferrin 352 (206-381) mg/dL Ferritin 6.79 L (11.1-264) ng/mL Total Creatine Kinase 63 (30-135) U/L Troponin I < 0.012 (0.000-0.034) ng/mL TSH 3.710 (0.465-4.680) uIU/mL Blood Type AB Positive Antibody Screen Negative Crossmatch See Detail Imaging Data Radiologist's impression: CTA Abd & Pelvis with contrast Stat Rad : Prior 04/23/2018 limited for active GI hemorrhage due to protocol. Concern, recommend CTA without with IV contrast and with 120 second delay venous imaging. No acute findings definitely seen. ECG Data EKG #1: Attestation: I personally reviewed and interpreted this ECG as follows: ECG completion date: 04/08/25 ECG completion time: 23:29 Interpretation: This seems to be a Junctional bradycardia (narrow complex with retrograde/inverted P waves before the QRS complexes) at a rate of 54 beats per minute. IA interval 107. QRS 88 QT/QTC 443/422. Good R-wave progression across the precordial leads. No T-wave inversions. Discharge Plan Discharge Clinical Impression: Microcytic anemia, Transfusion of blood during current hospitalization Patient Disposition: Home Condition: Stable Instructions: Antibiotic Form, Anemia (ED), Blood Transfusion (DC) Additional Instructions: You can continue taking iron supplementation for your anemia. It is just as efficacious to take this every other day with fewer GI side effects, although given your anemia require transfusion, it may be recommended in your case for now to continue taking it daily. It is best absorbed when taken with vitamin C so take this with orange juice, etc. Because you required a blood transfusion, could consider calling Dr Nick's office to see if the need for blood transfusion would be grounds for earlier appointment (not guaranteed but doesn't hurt to try). in the interim continue to take your medications as prescribed. Follow-up with your primary care provider. Return to the emergency department any new or worsening symptoms. Patient Language: Estonian Prescriptions: No Action aspirin 81 mg tablet,chewable 81 mg PO DAILY bupropion HCl 150 mg tablet extended release 24 hr 150 mg PO QAM latanoprost 0.005 % drops 1 drp EACH EYE QPM lisinopril 20 mg tablet 20 mg PO DAILY ezetimibe 10 mg tablet 10 mg PO DAILY rosuvastatin 20 mg tablet 20 mg PO DAILY ferrous sulfate 325 mg (65 mg iron) Tablet 324 mg PO BIDWM Qty: 60 1RF levothyroxine 88 mcg tablet 88 mcg PO DAILY Qty: 90 1RF cholecalciferol (vitamin D3) 25 mcg (1,000 unit) capsule 25 mcg PO DAILY Qty: 100 3RF cyanocobalamin (vitamin B-12) 1,000 mcg capsule 1,000 mcg PO DAILY Qty: 90 3RF albuterol sulfate [Ventolin HFA] 90 mcg/actuation HFA aerosol inhaler 1 inh inhalation Q4H Qty: 6.7 0RF esomeprazole magnesium 40 mg capsule,delayed release(DR/EC) See Rx Instructions .ROUTE .COMPLEX Qty: 90 1RF Dose Instruction: TAKE 1 CAPSULE (40 MG) BY MOUTH DAILY Rx Instructions: TAKE 1 CAPSULE (40 MG) BY MOUTH DAILY Follow-up/Referrals: Lisa Barrientos PA-C [Primary Care Provider, Family Practice] Dee Prince MD [Physician, Family Practice] Stand Alone Forms: Work/School Release IP Time of Disposition: 03:01
--- NOTE | 2025-04-08 23:09 | ECG_ITS ---
Test Date: 2025-04-08 23:29:28 Measurements Intervals Anna Rate: 54 P: -80 MT: 107 QRS: 5 QRSD: 88 T: 45 QT: 443 QTc: 422 Interpretive Statements ECTOPIC ATRIAL BRADYCARDIA CANNOT R/O SEPTAL INFARCT, AGE INDETERMINATE BASELINE ARTIFACT- I, II, III, AVR, AVL, V1 ABNORMAL ECG No previous ECG available for comparison Electronically Signed On 04-09-2025 05:13:40 CDT by Brendan Smith D.O.
[2025-04-08 23:25] LABS: Creatine Kinase 63 U/L (30-135)
[2025-04-08 23:29] LABS: Iron 28 ug/dL (37-170)
[2025-04-08 23:40] LABS: Percent Iron Saturation 7 % (20-50)
[2025-04-09] VITALS (32 sets, daily range): BP systolic 126–145; BP diastolic 44–96; PULSE 49–77; RESP 12–22; TEMP 36.6–36.7; O2SAT 98–100
[2025-04-09 00:02] LABS: Thyroid Stimulating Hormone 3.710 uIU/mL (0.465-4.680)
[2025-04-09 00:05] LABS: Ferritin 6.79 ng/mL (11.1-264)
[2025-04-09 00:20] LABS: Troponin I < 0.012 ng/mL (0.000-0.034)
[2025-04-09] MEDS: TUBING, BLOOD PLUM PUMP TUBING 1 EACH XX (00:30)
[2025-04-09 01:25] LABS: Transferrin 352 mg/dL (206-381)
[2025-04-09] MEDS: SODIUM CHLORIDE 0.9% IV 250 ML 30 ML IV CONT (02:54)
== END 2025-04-09 03:45 | disposition home or self-care (01) ==
PROVIDERS: Emergency Provider Student in an Organized Health Care Education/Training Program; PCP Student in an Organized Health Care Education/Training Program
DX: D50.9 Iron deficiency anemia, unspecified (principal); I10 Essential (primary) hypertension; I73.9 Peripheral vascular disease, unspecified; E03.9 Hypothyroidism, unspecified; E78.5 Hyperlipidemia, unspecified; Z87.891 Personal history of nicotine dependence; Z79.82 Long term (current) use of aspirin; Z79.899 Other long term (current) drug therapy; R00.1 Bradycardia, unspecified; R94.31 Abnormal electrocardiogram [ECG] [EKG]; K64.4 Residual hemorrhoidal skin tags
CPT/HCPCS: 36415; 36430; 71045; 74174; 80048; 82550; 82728; 83540; 83550; 84443; 84466; 84484; 85025; 85610; 85730; 86850; 86900; 86901; 86923; 93005; 96360; 99285; J7050; P9016; Q9967

== ENCOUNTER 2025-04-23 07:36 | Outpatient (CLI) | payer MEDICARE, SELFPAY ==
--- NOTE | ~2025-04-23 | CT_ITS ---
Exam: CT abdomen and pelvis with contrast Clinical History: [Other fecal abnormalities ] Comparison: [ CTA abdomen and pelvis 04/09/2025] Technique: Multiple axial CTA images of the abdomen were obtained with IV contrast. Sagittal and coronal reformatted images were obtained. FINDINGS: Lung bases: [There are afew small opacities in the lower lungs likely atelectasis or scarring. ] Liver: [ No mass.] [ No intrahepatic biliary duct dilatation.] There are a few too small to characterize low-attenuation lesions in the kidneys. There is a 1.8 cm cyst in the left lobe of the liver. There is a 1.2 cm cyst in the left lobe of the liver. Fatty liver. Gallbladder: Cholecystomy clips. Common bile duct: [ Normal caliber.] [ No stones.] Spleen: [ Within normal limits.] Pancreas: [ No mass. No pancreatic fluid collection.] Adrenals: [ No masses.] Kidneys: [ No masses. No hydronephrosis.][ There are a few too small to characterize low-attenuation lesions in the kidneys.] Lymph nodes: [ No adenopathy in the abdomen or pelvis.] Stomach, small bowel and colon: Large amount of stool. Thickening of the escobar of the stomach. Differential includes incomplete stomach wall distention, gastritis or mass. Peritoneum cavity: [ No mesenteric fat stranding or fluid.] Osseous structures: [ No acute fracture or destructive lesion.] [ Multilevel degenerative change in the visualized spine.] Bones appear osteopenic. Abdominal aorta: No abdominal aortic aneurysm. Stable atherosclerotic disease in the abdominal aorta. Additional findings: No significant change in the atherosclerotic disease with moderate stenosis of the origin of the right renal artery and severe stenosis at the origin of the superior mesenteric artery and the left renal artery. IMPRESSION: 1. No significant change in the atherosclerotic disease with moderate stenosis of the origin of the right renal artery and severe stenosis at the origin of the superior mesenteric artery and the left renal artery. 2. Large amount of stool. 3. Thickening of the escobar of the stomach. Differential includes incomplete stomach wall distention, gastritis or mass. 4. Fatty liver. Reviewed, dictated and finalized at location Q. IMPRESSION: 1. No significant change in the atherosclerotic disease with moderate stenosis of the origin of the right renal artery and severe stenosis at the origin of th e superior mesenteric artery and the left renal artery. 2. Large amount of stool. 3. Thickening of the escobar of the stomach. Differential includes incomplete sto mach wall distention, gastritis or mass. 4. Fatty liver.
--- OUTSIDE RECORDS SUMMARY | 2025-04-23 07:44 | XMS_ITS | Clinical Summary ---
Author Organization [facility] Address [address] [place] [address] Care Team Providers Care Insurance Examiner Name Role Phone Dee Prince MD Primary Care Provider [phone] Allergies Active Allergy Reactions Criticality Noted Date [...] EYES 2 TIMES A DAY. 3 Active levothyroxine (SYNTHROID) 88 mcg tablet Take 1 tablet (88 mcg total) by mouth endocrinology physician before breakfast Active amLODIPine (NORVASC) 10 mg tablet TAKE 1 TABLET BY MOUTH EVERY DAY 90 tablet [address] (NexIUM) 40 mg capsule Take 1 capsule (40 mg total) by mouth daily before breakfast 5 Active cholecalcifero l 25 mcg (1,000 unit) tablet TAKE 1 TABLET EVERY DAY BY ORAL ROUTE WITH MEAL(S) FOR 90 DAYS. 4 Active ezetimibe (ZETIA) 10 mg tablet TAKE 1 TABLET BY MOUTH EVERY DAY 90 tablet 2 5 Active lisinopriL (PRINIVIL,ZEST RIL) 20 mg tablet TAKE 1 TABLET BY MOUTH EVERY DAY 90 tablet 2 5 Active rosuvastatin (CRESTOR) 20 mg tablet TAKE 1 TABLET BY MOUTH EVERY DAY 90 tablet 1 5 Active buPROPion XL (WELLBUTRIN XL) 150 mg 24 hr tablet TAKE 1 TABLET BY MOUTH EVERY DAY IN THE MORNING 90 tablet 2 5 Active Active Problems Problem Noted Date Diagnosed Date Coronary artery calcification seen on CAT scan 0 02/22/2024 Overview (02/22/2024): Incidental coronary artery calcifications noted on low-dose CT chest November 20, 2023 at [facility] [place] Paroxysmal SVT (supraventricular tachycardia) Atherosclerosis of aorta 02/22/2024 Overview (02/22/2024): Incidental atherosclerosis of the thoracic aorta noted on low-dose CT chest November 20, 2023 at [place] [facility] H/O tobacco use, presenting hazards to [...] Encounters Date Type Department Care Team Description 03/23/2025 1:00 PM CDT Office Visit [facility] [address] [place] [address] Esha Diallo NP Coronary artery calcification seen on CAT scan (Primary Dx); Paroxysmal SVT (supraventricular tachycardia); Hypertension, unspecified type; Peripheral artery disease; Anemia, unspecified type from Last 3 Months Immunizations Immunization Administration [...] Date Site/Laterality Comments ESOPHAGOGASTRODUODENOSCOPY COLONOSCOPY BREAST SURGERY 2007 SECTION 2020-8169 CHOLECYSTECTOMY 1995 Medical History Medical History Date Comments Hypertension High cholesterol Peripheral artery disease Hypothyroidism Hx of JENKINS that w as euthyroid and then turned underactive H/O radioactive iodine thyroid ablation GERD (gastroesophageal reflux disease) Anemia 2019 Anxiety Glaucoma 2018 Chronic bronchitis (HCC) Family History Medical History Relation Name Comments Alcohol abuse Brother Philip Carrasco Lung cancer Brother Philip Carrasco No Known Problems Daughter 1 No Known Problems Daughter 2 Alcohol abuse Father Xavier Heart disease Father Xavier cardiovascular disease Father Xavier Cancer Mother Hyun Hypertension Mother Hyun Liver cancer Mother Hyun Alzheimer's disease Sister 1 Kateryna Diabetes Sister 1 Kateryna Memory loss Sister 1 Kateryna Diabetes Sister 2 Padmini Hypertension Sister 2 Padmini No Known Problems Son Relation Name Status Comments Brother Philip Carrasco Daughter 1 Alive Daughter 2 Alive Father Xavier Mother Hyun Sister 1 Kateryna Sister 2 Padmini Son Alive Social History Tobacco Use Types Packs/Day Years Used Date Smoking Tobacco: Some Days Cigarettes 0.3 51.8 Started: 07/02/1973 Passive Smoke Exposure: Yes Smokeless Tobacco: Never Tobacco Cessation:Ready to Q uit: Yes; Counseling Given: Not Answered Comments:Have tried several times, [...] on file 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 Gender Identity Not on file Sexual Orientation Not on file Obstetrics History Last Filed Vital Signs Vital Sign Reading Time Taken Comments Blood Pressure 130/60 03/23/2025 12:57 PM CDT Pulse 59 03/23/2025 12:57 PM CDT Temperature 36.9 C (98.5 F) 02/18/2024 9:47 AM CDT Respiratory Rate 16 02/18/2024 9:47 AM CDT Oxygen Saturation 99% 03/23/2025 12:57 PM CDT Inhaled Oxygen Concentration - - Weight 54 kg (119 lb) 03/23/2025 12:57 PM CDT Height 162.6 cm (5' 4) 03/23/2025 12:57 PM CDT Body Mass Index 20.43 03/23/2025 12:57 PM CDT Plan of Treatment Health Maintenance Due Date Last Done Comments Hepatitis C Screening 1945 Osteoporosis Screening-Bone Density Scan 1945 Hepatitis B Screening 1964 Well Visit 65+ 2011 Zoster Vaccine (2 of 3) 07/10/2011 05/15/2011 Pneumococcal vaccine 65+ (2 of 2 - PCV) 05/19/2015 05/19/2014 DTaP/Tdap/Td Vaccine (2 - Td or Tdap) 05/13/2022 05/13/2012 Lung Cancer Screening 08/24/2024 02/22/2024, 024 Depression Screening 02/17/2025 02/18/2024, 02/18/20 24 Fall Risk Assessment 02/17/2025 02/18/2024 Covid-19 Vaccine (7 - 2024-2 6 season) 2025 03/25/2023, 04/14/2022, 10/02/2021, Additional history exists Influenza Vaccine (#1) 2025 , 04/14/2022, 03/24/2021, Additional history exists Procedures Procedure Name Priority Date/Time Associated Diagnosis Comments LUNG CANCER SCREENING Routine 02/22/2024 3:27 PM CDT from Last 3 Months or Most Recently Relevant to Health Maintenance Results * LUNG CANCER SCREENING (02/22/2024 3:27 PM CDT) Scribed Lung Cancer Screening Normal us Historical Provider HEALTH MAINTENANCE Final Result from Last 3 Months or Most Recently Relevant to Health Maintenance Insurance [facility] MEDICARE ADVANTAGE [facility] MEDICARE ADVANTAGE [facility] Address: [facility] [address] [place] [address] Care Teams Insurance Examiner Relationship Specialty Start Date End Date Dee Prince MD PCP - General Family Medicine 08/14/24
--- OUTSIDE RECORDS SUMMARY | 2025-04-23 07:44 | XMS_ITS | Clinical Summary ---
Author Organization [facility] [employer] Address [address] [facility] [place] [address] Care Team Providers Care Stained Glass Painter Name Role Phone Owen Andrews MD Primary Care Provider [phone] Source Comments [facility] [employer],non-owned Affiliates and Associated Physician Practices is amultiple site organization consisting of ambulatory clinics and hospital sitesin [place], [place], [place] and [place]. This disclosure is being madepursuant to the Care Everywhere program and may not contain all information available regarding this patient. 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 Gender Identity Not on file Sexual Orientation Not on file Last Filed Vital Signs Vital Sign Reading Time Taken Comments Blood Pressure 150/62 07/05/2020 12:58 PM CEO AND [employer]ER Pulse 51 07/05/2020 12:58 PM CEO AND [employer]ER Temperature 36.8 C (98.2 F) 06/16/2020 8:04 AM [employer] AND [employer] F[employer]ER Respiratory Rate 18 06/16/2020 8:04 AM CEO AND [employer] F[employer]ER Oxygen Saturation 100% 07/05/2020 12:58 PM CEO [employer]ER Inhaled Oxygen Concentration - - Weight 56.2 kg (124 lb) 07/05/2020 12:58 PM CEO AND [employer]ER Height 162.6 cm (5' 4) 07/05/2020 12:58 PM CEO AND [employer]ER Body Mass Index 21.28 07/05/2020 12:58 PM CEO AND [employer] FOUNDER Plan of Treatment Health Maintenance Due Date Last Done Comments BONE DENSITY TESTING 1945 HEPATITIS C SCREENING 05/31/1963 ZOSTER VACCINE (2 of 3) 07/10/2011 05/15/2011 PNEUMOCOCCAL VACCINE 50+ (2 of 2 - PCV) 05/19/2015 05/19/2014 Respiratory Syncytial Virus (RSV) Vaccine Pt: or over 60 yrs (1 - 1-dose 75+ series) 2021 DTAP/TDAP/TD VACCINES (2 - T d or Tdap) 05/13/2022 05/13/2012 DEPRESSION SCREENING 07/02/2024 MEDICARE AWV CALENDAR YEAR 2024 COVID-19 VACCINE (1 - 2023-2 5 season) 2025 INFLUENZA VACCINE (#1) 2025 0, 04/19/2014, 07/02/2011 HEPATITIS B VACCINE Aged Out [...] 12:03 AM 06/16/2020 12:40 PM Care Teams Stained Glass Painter Relationship Specialty Start Date End Date Owen Andrews MD [address] [place] [address] [address] [place] [id number] PCP - General Family Medicine 06/13/20
--- OUTSIDE RECORDS SUMMARY | 2025-04-23 07:44 | XMS_ITS | Encounter Summary ---
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
--- OUTSIDE RECORDS SUMMARY | 2025-04-23 07:44 | XMS_ITS | Encounter Summary ---
Author Organization 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
--- OUTSIDE RECORDS SUMMARY | 2025-04-23 07:44 | XMS_ITS | Clinical Summary ---
Author Organization [facility] Bhupendra cabrera [facility] Address [address] [place] [address] Care Team Providers Care Community Health Consultant Name Role Phone Unavailable Primary Care Provider Unavailabl e Social History Tobacco Use Types Packs/Day Years Used Date Smoking Tobacco: Never Assessed Comments Unknown Sex and Gender Information Value Date Recorded Sex Assigned at Not on file Legal Sex Female 4:12 PM CDT Gender Identity Not on file Sexual Orientation Not on file Plan of Treatment Upcoming Encounters Date Type Department Care Team (Late st Contact Info) Description 06/03/2025 1:30 PM ICE RESURFACING MACHINE OPERATORS Office Visit [facility] Oncology and Hematology - [facility] [address] [facility] [address] [place] [address] Renaldo Nick MD [address] [facility] [address] [place] [address] Health Maintenance Due Date Last Done Comments DTAP/TDAP/TD VACCINES (1 - Tdap) 1965 PNEUMOCOCCAL VACCINE 50+ YEARS (1 of 1 - PCV) 06/05/19 96 ZOSTER VACCINE (1 of 2) 1996 OSTEOPOROSIS SCREENING 2011 RSV VACCINE (60+ or ) (1 - 1-dose 75+ series) 2021 INFLUENZA VACCINE (#1) 2025 Insurance [facility] [id number]
--- OUTSIDE RECORDS SUMMARY | 2025-04-23 07:44 | XMS_ITS | Clinical Summary ---
Author Organization [facility] Address [facility] [place] [address] Care Team Providers Care Can Dragger Name Role Phone Owen Stephenson MD Primary Care Provider [phone] James Vasquez MD Unavailable Allergies No known [...] Comments Blood Pressure 158/60 05/30/2018 8:02 AM CLINICAL DATA COORDINATOR Pulse 65 05/30/2018 8:02 AM CLINICAL DATA COORDINATOR Temperature - - Respiratory Rate - - Oxygen Saturation - - Inhaled Oxygen Concentration - - Weight 59.4 kg (131 lb) 05/30/2018 8:02 AM CLINICAL DATA COORDINATOR Height 162.6 cm (5' 4) 05/30/2018 8:02 AM CLINICAL DATA COORDINATOR Body Mass Index 22.49 05/30/2018 8:02 AM CLINICAL DATA COORDINATOR Plan of Treatment Health Maintenance Due Date [...] 75+ series) 2021 COVID-19 Vaccine ( - 2024-2 6 season) 2025 Influenza Adult (#1) 2025 Hepatitis A Vaccines Aged Out No long er eligible based on patient's age to complete this topic Meningococcal B Vaccine Aged Out No l onger eligible based on patient's age to complete this topic Meningococcal Vaccine Aged Out No raymond raúl eligible based on patient's age to complete this topic RSV Immunizations Under 20 Months Aged Out No longer eligible based on patient's age to complete this topic Insurance MEDICARE Care Teams Can Dragger Relationship Specialty Start Date End Date Owen Stephenson MD [address] [place] [address] PCP - General FAMILY PRACTICE 04/25/18 James Vasquez MD [address] [address] Referring Physician VASCULAR SURGERY 04/25/18
== END 2025-04-23 07:37 | disposition home or self-care (01) ==
PROVIDERS: PCP Student in an Organized Health Care Education/Training Program; Visit Provider Student in an Organized Health Care Education/Training Program
DX: R19.5 Other fecal abnormalities (principal); D64.9 Anemia, unspecified; K76.0 Fatty (change of) liver, not elsewhere classified
CPT/HCPCS: 74175; Q9967

== ENCOUNTER 2025-05-14 12:23 | Outpatient (CLI) | payer MEDICARE, SELFPAY ==
--- OUTSIDE RECORDS SUMMARY | 2025-05-13 09:00 | XMS_ITS | Encounter Summary ---
Author Organization [facility] Address [address] [place] [address] Care Team Providers Care Lockstitch Front Edge Tape Sewer Name Role Phone Dee Prince MD Primary Care Provider [phone] Reason for Visit * Reason Comments New Patient Renal Artery stenosi sSMA Stenosis*CTA Abd done 04/23/25 @ [facility] - images have been requested * Consultation (Routine) - Closed Specialty Diagnoses / Procedures Referred By Todd guo Referred To Contact Vascular Surgery Diagnoses Atherosclerosis of renal artery Lisa Barrientos PA [address] [place] [address] Phone: tel: fax: Hayden Drummond MD [address] [place] [address] [place] [address] Phone: tel: fax: Referral ID Status Reason Start Date Expiration Date V isits Requested Visits Authorized [id number] Closed Specialty Services Required 04/28/2025 05/28/2026 1 1 Encounter Details Date Type Department Care Team (Late st Contact Info) Description 05/13/2025 9:00 AM AVIONICS SYSTEMS TECHNICIAN Office Visit [facility] Medical [facility] Vascular at [address] [place] [address] Hayden Drummond MD [address] [place] [address] [place] [address] Peripheral artery disease (Primary Dx); Primary hypertension; Mixed hyperlipidemia; Renal artery stenosis Social History Tobacco Use Types Packs/Day Years Used Date Smoking Tobacco: Some Days Cigarettes 0.3 51.9 Started: 07/02/1973 Passive Smoke Exposure: Yes Smokeless Tobacco: Never Comments:Have tried several times, several different aids, [...] on file Legal Sex Female 12:39 AM AVIONICS SYSTEMS TECHNICIAN Gender Identity Not on file Sexual Orientation Not on file documented as of this encounter Last Filed Vital Signs Vital Sign Reading Time Taken Comments Blood Pressure 151/65 05/13/2025 9:20 AM AVIONICS SYSTEMS TECHNICIAN Pulse 62 05/13/2025 9:20 AM AVIONICS SYSTEMS TECHNICIAN Temperature - - Respiratory Rate - - Oxygen Saturation 100% 05/13/2025 9:20 AM AVIONICS SYSTEMS TECHNICIAN Inhaled Oxygen Concentration - - Weight 53.5 kg (118 lb) 05/13/2025 9:20 AM AVIONICS SYSTEMS TECHNICIAN Height 162.6 cm (5' 4) 05/13/2025 9:20 AM AVIONICS SYSTEMS TECHNICIAN Body Mass Index 20.25 05/13/2025 9:20 AM AVIONICS SYSTEMS TECHNICIAN documented in this encounter Functional Status * BP Location Answer Date of Assessment Author Right arm 05/13/2025 9:20 AM AVIONICS SYSTEMS TECHNICIAN Jose Juan Novoa MA * BP Location Answer Date of Assessment Author Right arm 05/13/2025 9:20 AM AVIONICS SYSTEMS TECHNICIAN Jose Juan Novoa MA documented as of this encounter Progress Notes * Hayden Drummond MD - 05/13/2025 9:00 AM CST Images from the original note were not included. [facility] [place] Patient ID: Siobhan Solomon is a 79 y.o. female Visit Date: 05/13/2025 Chief Complaint Chief Complaint Patient presents with New Patient Renal Artery stenosis SMA Stenosis *CTA Abd done 04/23/25 @ [facility] - images have been requested HPI Siobhan Solomon is a 79 y.o. female w/ a history of HTN, HLD PVD seen in the office for evaluation of her peripheral vascular disease. Has not been evaluated by a vascular surgeon, was previously a patient of [facility], underwent right iliac stenting. Denies any life-limiting claudication rest pain or wounds. Antiplatelets/Anticoagulants (and reason): - ASA Previous vascular surgery interventions, including date (surgery, angio,etc): - right common iliac stent (8 mm Omnilink) Current Outpatient Medications: albuterol HFA (PROVENTIL HFA,VENTOLIN HFA,PROAIR HFA) 90 mcg/actuation inhaler, Inhale 2 puffs every 6 (six) hours as needed for wheezing, Disp: , Rfl: amLODIPine (NORVASC) 10 mg tablet, TAKE 1 TABLET BY MOUTH EVERY DAY, Disp: 90 tablet, Rfl: 2 aspirin 81 mg enteric coated tablet, Take 1 tablet (81 mg total) by mouth daily, Disp: , Rfl: buPROPion XL (WELLBUTRIN XL) 150 mg 24 hr tablet, TAKE 1 TABLET BY MOUTH EVERY DAY IN THE MORNING, Disp: 90 tablet, Rfl: 2 cholecalciferol 25 mcg (1,000 unit) tablet, TAKE 1 TABLET EVERY DAY BY ORAL ROUTE WITH MEAL(S) FOR 90 DAYS., Disp: , Rfl: cyanocobalamin (Vitamin B-12) 1,000 mcg tablet, cyanocobalamin (vitamin B-12) 1,000 mcg tablet, Disp: , Rfl: dorzolamide (TRUSOPT) 2 % ophthalmic solution, 1 drop 2 (two) times a day, Disp: , Rfl: esomeprazole DR (NexIUM) 40 mg capsule, Take 1 capsule (40 mg total) by mouth daily before breakfast, Disp: , Rfl: ezetimibe (ZETIA) 10 mg tablet, TAKE 1 TABLET BY MOUTH EVERY DAY, Disp: 90 tablet, Rfl: 2 ferrous sulfate 325 mg (65 mg of elemental iron) tablet, ferrous sulfate 325 mg (65 mg iron) tabletTAKE 1 TABLET BY MOUTH TWICE A DAY WITH MEALS, Disp: , Rfl: latanoprost (XALATAN) 0.005 % ophthalmic solution, INSTILL ONE DROP INTO BOTH EYES AT BEDTIME. THISIS REPLACING TIMOLOL, Disp: , Rfl: levothyroxine (SYNTHROID) 88 mcg tablet, Take 1 tablet (88 mcg total) by mouth environmental field services technician beforebreakfast, Disp: , Rfl: lisinopriL (PRINIVIL,ZESTRIL) 20 mg tablet, TAKE 1 TABLET BY MOUTH EVERY DAY, Disp: 90 tablet, Rfl:2 rosuvastatin (CRESTOR) 20 mg tablet, TAKE 1 TABLET BY MOUTH EVERY DAY, Disp: 90 tablet, Rfl: 1 aspirin ([place]) 81 mg capsule, Take 1 tablet by mouth daily (Patient not taking: Reported on 05/13/2025), Disp: , Rfl: brimonidine (ALPHAGAN) 0.2 % ophthalmic solution, APPLY ONE DROP TO BOTH EYES 2 TIMES A DAY. (Patient not taking: Reported on 05/13/2025), Disp: , Rfl: Past Medical History: Diagnosis Date Anemia 2019 Anxiety Chronic bronchitis (HCC) GERD (gastroesophageal reflux disease) Glaucoma 2018 H/O radioactive iodine thyroid ablation High cholesterol Hypertension Hypothyroidism Hx of JEN[place] that was euthyroid and then turned underactive Peripheral artery disease Past Surgical History: Procedure Laterality Date BREAST SURGERY 2007 SECTION [id number] CHOLECYSTECTOMY 1995 COLONOSCOPY ESOPHAGOGASTRODUODENOSCOPY Family History Problem Relation Age of Onset Liver cancer Mother Cancer Mother Hypertension Mother Other (cardiovascular disease) Father Alcohol abuse Father Heart disease Father Alzheimer's disease Sister Diabetes Sister Memory loss Sister Lung cancer Brother Alcohol abuse Brother 30 - 39 No Known Problems Daughter No Known Problems Daughter No Known Problems Son Diabetes Sister Hypertension Sister Social History Tobacco Use Smoking status: Some Days Current packs/day: 0.20 Average packs/day: 0.3 packs/day for 51.9 years (17.7 ttl pk-yrs) Types: Cigarettes Start date: 07/02/1973 Passive exposure: Yes Smokeless tobacco: Never Tobacco comments: Have tried several times, several different aids, no complete success Substance and Sexual Activity Drug use: Never Sexual activity: Not Currently Alcohol Use: Alcohol Misuse (02/18/2024) AUDIT-C Frequency of Alcohol Consumption: 2-4 times a month Average Number of Drinks: 3 or 4 Frequency of Binge Drinking: Less than monthly ROS Constitutional: No change in appetite. No recent weight loss. No fevers chills or sweats. HEENT: No trouble swallowing. No tinnitus. Eyes: No visual disturbances Respiratory: No shortness of breath. No cough or sputum production. No wheezing. Cardiovascular: No chest pain. No palpitations. Gastrointestinal: No abdominal pain. No nausea vomiting or diarrhea. Genitourinary: No dysuria. No hematuria. Extremities: No claudication. No rest pain. No lower extremity ulcerations or infections. No significant edema. Musculoskeletal: No joint pains. No back pain. Neurologic: No dizziness. No syncope. No weakness. Skin: No rashes. No discoloration. Hematologic: no bleeding Psychiatric: no anxiety, no behavioral changes, no mood swings PE Constitutional: Alert and oriented HEENT: Head atraumatic and normocephalic Neck is supple No carotid bruits Extraocular movements full, sclerae anicteric Chest: Effort normal. Breath sounds normal. Cardiovascular: S1 and S2 are normal. No murmurs rubs or gallops appreciated. Abdominal: Soft, nontender, no masses. Extremities/Vascular: Bilateral extremities are warm. Musculoskeletal: Normal range of motion. Neurologic: Cranial nerves 2-12 intact. Strength and sensation intact bilaterally. Skin: Warm and dry. No rashes. No discoloration. Psychiatric: Normal mood and affect. Behavior normal. Judgment normal. IMAGING STUDIES Diagnoses and all orders for this visit: Peripheral artery disease (Primary) Assessment & Plan: History of right iliac stenting done by Dr. Taylor, no noninvasives testing for the last couple years. Continue ASA and statin therapy. Noninvasives testing ordered for further evaluation. Primary hypertension Assessment & Plan: Stable amlodipine Mixed hyperlipidemia Assessment & Plan: Stable continue Crestor Renal artery stenosis Assessment & Plan: Renal and SMA stenosis mentioned on CTA abdomen pelvis while admitted at [facility] for anemia. I have requested the imaging and we will evaluate further. Other orders - Ambulatory referral to Vascular Surgery MD Hayden Cesar MD This note was generated in part or in whole with voice recognition software. Voice recognition is usually quite accurate but there are chair and couch maker errors that can and often occur. All attempts weremade to correct these errors. I apologize for any typographical errors that were not detected and corrected. NICS SYSTEMS TECHNICIAN documented in this encounter Miscellaneous Notes * Assessment & Plan Note - Hayden Drummond MD - 05/13/2025 9:48 AM CSTAssociated Problem(s): Renal artery stenosis Renal and SMA stenosis mentioned on CTA abdomen pelvis while admitted at [facility] for anemia. I have requested the imaging and we will evaluate further. NICS SYSTEMS TECHNICIAN * Assessment & Plan Note - Hayden Drummond MD - 05/13/2025 9:46 AM CSTAssociated Problem(s): Hyperlipidemia Stable continue Crestor NICS SYSTEMS TECHNICIAN * Assessment & Plan Note - Hayden Drummond MD - 05/13/2025 9:46 AM CSTAssociated Problem(s): Hypertension Stable amlodipine NICS SYSTEMS TECHNICIAN * Assessment & Plan Note - Hayden Drummond MD - 05/13/2025 9:46 AM CSTAssociated Problem(s): Peripheral artery disease History of right iliac stenting done by Dr. Taylor, no noninvasives testing for the last couple years. Continue ASA and statin therapy. Noninvasives testing ordered for further evaluation. NICS SYSTEMS TECHNICIAN documented in this encounter Plan of Treatment Not on file documented as of this encounter Visit Diagnoses Diagnosis Peripheral artery disease- Primary Primary hypertension Unspecified essential hypertension Mixed hyperlipidemia Renal artery stenosis Atherosclerosis of renal artery documented in this encounter Historical Medications * This list may reflect changes made after this encounter. aspirin 81 mg enteric coated tablet Take 1 tablet (81 mg total) by mouth daily dorzolamide (TRUSOPT) 2 % ophthalmic solution 1 drop 2 (two) times a day 04/12/2025 albuterol HFA (PROVENTIL HFA,VENTOLIN HFA,PROAIR HFA) 90 mcg/actuation inhaler Inhale 2 puffs every 6 (six) hours as needed for wheezing added in this encounter Orders Outpatient Referral Count Last Ordered Date Fir st Ordered Date AMB REFERRAL TO VASCULAR SURGERY 1 05/13/20 documented in this encounter Care Teams Lockstitch Front Edge Tape Sewer Relationship Specialty Start Date End Date Dee Prince MD PCP - General Family Medicine 08/14/24 documented as of this encounter
--- NOTE | ~2025-05-14 | CT_ITS ---
EXAMINATION:CT diagnostic chest wo con DATE: 05/14/2025 14:59 INDICATION: Lung nodule TECHNIQUE: Computed tomography (CT) of the chest was performed without intravenous contrast. The dose-length product (DLP) was 65.47 mGy-cm. COMPARISON: 05/16/2024 FINDINGS: No change in 6 mm left upper lobe nodule. No new nodules or masses. Minimal fibrotic changes and small scattered calcified granulomas. No acute process seen. Heart and great vessels appear stable. Heart size normal with no significant pericardial effusion or bulky lymphadenopathy. No acute process seen in the visualized portions of the upper abdomen extrathoracic soft tissues or bony thorax. Cholecystectomy clips noted. Cystic lesions in the liver not grossly changed. IMPRESSION: Stable left upper lobe lung nodule. No new nodules. Continued 12 month follow-up low-dose lung cancer screening chest CT recommended. Lung RADS 2. Reviewed, dictated and finalized at location A. N ELEVATOR OPERATOR IMPRESSION: Stable left upper lobe lung nodule. No new nodules. Continued 12 mo nth follow-up low-dose lung cancer screening chest CT recommended. Lung RADS 2.
--- OUTSIDE RECORDS SUMMARY | 2025-05-14 13:03 | XMS_ITS | Clinical Summary ---
Author Organization [facility] Bhupendra cabrera [facility] Address [address] [facility] [place] [address] Care Team Providers Care Bulk Sugar Handler Name Role Phone Unavailable Primary Care Provider [...] st Contact Info) Description 06/03/2025 1:30 PM INSOLE BEVELER Office Visit [facility] Oncology and Hematology - [facility] [address] [facility] [address] [place] [address] Renaldo Nick MD [address] [facility] [address] [place] [address] Health Maintenance Due Date Last Done Comments DTAP/TDAP/TD VACCINES (1 - Tdap) 1965 PNEUMOCOCCAL VACCINE 50+ YEARS (1 of 1 - PCV) 06/05/19 96 ZOSTER VACCINE (1 of 2) 1996 OSTEOPOROSIS SCREENING 2011 RSV VACCINE (60+ or ) (1 - 1-dose 75+ series) 2021 INFLUENZA VACCINE (#1) 2025 Insurance [facility] [id number] [place] [place] Address: [facility] [address] [place] [address]
--- OUTSIDE RECORDS SUMMARY | 2025-05-14 13:03 | XMS_ITS | Encounter Summary ---
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
--- OUTSIDE RECORDS SUMMARY | 2025-05-14 13:03 | XMS_ITS | Encounter Summary ---
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
--- OUTSIDE RECORDS SUMMARY | 2025-05-14 13:03 | XMS_ITS | Clinical Summary ---
Author Organization [facility] [email or web address] Address [address] [place] [address] Care Team Providers Care Account Manager B2B Name Role Phone Owen Andrews MD Primary Care Provider [phone] Source Comments [facility] [email or web address],non-owned Affiliates and Associated Physician Practices is amultiple site organization consisting of ambulatory clinics and hospital sitesin [place], [place], [place] and [place]. This disclosure is being madepursuant to the Care Everywhere program and may not contain all information available regarding this patient. Last updated 18.[email or web address] Allergies No known active allergies Medications * [...] hand 06/14/2020 Subarachnoid hemorrhage 06/13/2020 Atherosclerosis of [place] ar teries of extremities with intermittent claudication, unspecified extremity 05/01/2019 Atherosclerotic heart diseas e of [place] coronary artery without angina pectoris 05/01/2019 Aortic [...] on file Legal Sex Female 7:52 PM ENVIRONMENTAL MANAGEMENT SPECIALIST Gender Identity Not on file Sexual Orientation Not on file Last Filed Vital Signs Vital Sign Reading Time Taken Comments Blood Pressure 150/62 07/05/2020 12:58 PM ENVIRONMENTAL MANAGEMENT SPECIALIST Pulse 51 07/05/2020 12:58 PM ENVIRONMENTAL MANAGEMENT SPECIALIST Temperature 36.8 C (98.2 F) 06/16/2020 8:04 AM ENVIRONMENTAL MANAGEMENT SPECIALIST Respiratory Rate 18 06/16/2020 8:04 AM ENVIRONMENTAL MANAGEMENT SPECIALIST Oxygen Saturation 100% 07/05/2020 12:58 PM ENVIRONMENTAL MANAGEMENT SPECIALIST Inhaled Oxygen Concentration - - Weight 56.2 kg (124 lb) 07/05/2020 12:58 PM ENVIRONMENTAL MANAGEMENT SPECIALIST Height 162.6 cm (5' 4) 07/05/2020 12:58 PM ENVIRONMENTAL MANAGEMENT SPECIALIST Body Mass Index 21.28 07/05/2020 12:58 PM ENVIRONMENTAL MANAGEMENT SPECIALIST Plan of Treatment Health Maintenance Due Date [...] 12:03 AM 06/16/2020 12:40 PM Care Teams Account Manager B2B Relationship Specialty Start Date End Date Owen Andrews MD [address] [place] [address] [address] [place] [id number] PCP - General Family Medicine 06/13/20
--- OUTSIDE RECORDS SUMMARY | 2025-05-14 13:03 | XMS_ITS | Clinical Summary ---
Author Organization [facility] Address [facility] [place] [address] Care Team Providers Care Entry Level Accountant Name Role Phone Owen Stephenson MD Primary Care Provider [phone] James Vasquez MD Unavailable Allergies No known [...] Comments Blood Pressure 158/60 05/30/2018 8:02 AM BINDING NICKER Pulse 65 05/30/2018 8:02 AM BINDING NICKER Temperature - - Respiratory Rate - - Oxygen Saturation - - Inhaled Oxygen Concentration - - Weight 59.4 kg (131 lb) 05/30/2018 8:02 AM BINDING NICKER Height 162.6 cm (5' 4) 05/30/2018 8:02 AM BINDING NICKER Body Mass Index 22.49 05/30/2018 8:02 AM BINDING NICKER Plan of Treatment Health Maintenance Due Date [...] complete this topic Insurance MEDICARE Care Teams Entry Level Accountant Relationship Specialty Start Date End Date Owen Stephenson MD [address] [place] [address] PCP - General FAMILY PRACTICE 04/25/18 James Vasquez MD [address] [address] Referring Physician VASCULAR SURGERY 04/25/18
--- OUTSIDE RECORDS SUMMARY | 2025-05-14 13:03 | XMS_ITS | Clinical Summary ---
Author Organization [facility] Address [address] [place] [address] Care Team Providers Care Composite Mechanic Name Role Phone Dee Prince MD Primary Care Provider [phone] Allergies Active Allergy Reactions Criticality Noted Date Comments Amlodipine Stomach upset Low 07/23/2019 Medications ferrous sulfate 325 mg (65 mg of elemental iron) tablet ferrous sulfate 325 mg (65 mg iron) tablet TAKE 1 TABLET BY MOUTH TWICE A DAY WITH MEALS 07/14/19 21 Active cyanocobalami n (Vitamin B-12) 1,000 mcg tablet cyanocobalamin (vitamin B-12) 1,000 mcg tablet 03/04/20 22 Active latanoprost (XALATAN) 0.005 % ophthalmic solution INSTILL ONE DROP INTO BOTH EYES AT BEDTIME. THIS IS REPLACING TIMOLOL 08/19/19 23 Active aspirin (Vazalore) 81 mg capsule Take 1 tablet by mouth daily Active brimonidine (ALPHAGAN) 0.2 % ophthalmic solution APPLY ONE DROP TO BOTH EYES 2 TIMES A DAY. 03/16/20 23 Active levothyroxine (SYNTHROID) 88 mcg tablet Take 1 tablet (88 mcg total) by mouth chipper before breakfast Active esomeprazole DR (NexIUM) 40 mg capsule Take 1 capsule (40 mg total) by mouth daily before breakfast 07/31/19 25 Active cholecalcifer ol 25 mcg (1,000 unit) tablet TAKE 1 TABLET EVERY DAY BY ORAL ROUTE WITH MEAL(S) FOR 90 DAYS. 05/31/20 24 Active ezetimibe (ZETIA) 10 mg tablet TAKE 1 TABLET BY MOUTH EVERY DAY 90 tablet 2 10/30/19 25 Active lisinopriL (PRINIVIL,ZES TRIL) 20 mg tablet TAKE 1 TABLET BY MOUTH EVERY DAY 90 tablet 2 11/28/19 25 Active rosuvastatin (CRESTOR) 20 mg tablet TAKE 1 TABLET BY MOUTH EVERY DAY 90 tablet 1 12/23/19 25 Active buPROPion XL (WELLBUTRIN XL) 150 mg 24 hr tablet TAKE 1 TABLET BY MOUTH EVERY DAY IN THE MORNING 90 tablet 2 01/20/20 25 Active amLODIPine (NORVASC) 10 mg tablet TAKE 1 TABLET BY MOUTH EVERY DAY 90 tablet 2 05/05/20 25 Active albuterol HFA (PROVENTIL HFA,VENTOLIN HFA,PROAIR HFA) 90 mcg/actuation inhaler Inhale 2 puffs every 6 (six) hours as needed for wheezing Active dorzolamide (TRUSOPT) 2 % ophthalmic solution 1 drop 2 (two) times a day 04/12/20 25 Active aspirin 81 mg enteric coated tablet Take 1 tablet (81 mg total) by mouth daily Active amLODIPine (NORVASC) 10 mg tablet TAKE 1 TABLET BY MOUTH EVERY DAY 90 tablet 2 06/20/20 24 2024 Discontinued Active Problems Problem Noted Date Diagnosed Date Renal artery stenosis 05/13/2025 Assessment & Plan (05/13/2025 9:48 AM SAFETY ASSOCIATE): Renal and SMA stenosis mentioned on CTA abdomen pelvis while admitted at [place] for anemia. I have requested the imaging and we will evaluate further. Coronary artery calcification seen on CAT scan 0 02/22/2024 Overview (02/22/2024): Incidental coronary artery calcifications noted on low-dose CT chest November 20, 2023 at [place] [facility] Paroxysmal SVT (supraventricular tachycardia) Atherosclerosis of aorta 02/22/2024 Overview (02/22/2024): Incidental atherosclerosis of the thoracic aorta noted on low-dose CT chest November 20, 2023 at [place] [facility] H/O tobacco use, presenting hazards to [...] Peripheral artery disease 05/12/2022 Assessment & Plan (05/13/2025 9:46 AM SAFETY ASSOCIATE): History of right iliac stenting done by Dr. Taylor, no noninvasives testing for the last couple years. Continue ASA and statin therapy. Noninvasives testing ordered for further evaluation. Assessment & Plan (02/18/2024 6:27 PM CDT): Chronic. Denies claudication. Continue risk factor modification with ASA, statin Hypothyroidism 05/12/2022 Assessment & Plan (02/18/2024 6:28 PM CDT): Chronic. Relatively euthyroid. Medication was adjusted in the last few months so needs follow up TSH to see if further adjustment needed. Ordered. We will plan to just levothyroxine based on results Hypertension 05/12/2022 Assessment & Plan (05/13/2025 9:46 AM SAFETY ASSOCIATE): Stable amlodipine Assessment & Plan (02/18/2024 6:28 PM CDT): Chronic. Controlled. Continue amlodipine and lisinopril Hyperlipidemia 05/12/2022 Assessment & Plan (05/13/2025 9:46 AM SAFETY ASSOCIATE): Stable continue Crestor Assessment & Plan (02/18/2024 6:29 PM CDT): Chronic. controlled on last check. Continue statin and ezetimibe Encounters Date Type Department Care Team Description 05/14/2025 Orders Only [facility] Vascular at [address] [place] [address] Hayden Drummond MD Renal artery stenosis (Primary Dx); Superior mesenteric artery stenosis; Other specified symptoms and signs involving the circulatory and respiratory systems 05/13/2025 9:00 AM SAFETY ASSOCIATE Office Visit [facility] Vascular at [address] [place] [phone] Hayden Drummond MD Peripheral artery disease (Primary Dx); Primary hypertension; Mixed hyperlipidemia; Renal artery stenosis 03/23/2025 1:00 PM CDT Office Visit [facility] Cardiology [address] [place] [address] Esha Diallo NP Coronary artery calcification seen [...] Comments ESOPHAGOGASTRODUODENOSCOPY COLONOSCOPY BREAST SURGERY 2007 SECTION [id number] CHOLECYSTECTOMY 1995 Medical History Medical History Date Comments Hypertension High cholesterol Peripheral artery disease Hypothyroidism Hx of [place] that w as euthyroid and then turned underactive H/O radioactive iodine thyroid ablation GERD (gastroesophageal reflux disease) Anemia 2020 Anxiety Glaucoma 2019 Chronic bronchitis (HCC) Family History Medical History [...] on file Legal Sex Female 12:39 AM SAFETY ASSOCIATE Gender Identity Not on file Sexual Orientation Not on file Last Filed Vital Signs Vital Sign Reading Time Taken Comments Blood Pressure 151/65 05/13/2025 9:20 AM SAFETY ASSOCIATE Pulse 62 05/13/2025 9:20 AM SAFETY ASSOCIATE Temperature 36.9 C (98.5 F) 02/18/2024 9:47 AM CDT Respiratory Rate 16 02/18/2024 9:47 AM CDT Oxygen Saturation 100% 05/13/2025 9:20 AM SAFETY ASSOCIATE Inhaled Oxygen Concentration - - Weight 53.5 kg (118 lb) 05/13/2025 9:20 AM SAFETY ASSOCIATE Height 162.6 cm (5' 4) 05/13/2025 9:20 AM SAFETY ASSOCIATE Body Mass Index 20.25 05/13/2025 9:20 AM SAFETY ASSOCIATE Plan of Treatment Health Maintenance Due Date [...] Fall Risk Assessment 02/17/2025 02/18/2024 Covid-19 Vaccine (2024-08 6 season) 2025 03/25/2023, 04/14/2022, 10/02/2021, Additional [...] Most Recently Relevant to Health Maintenance Insurance [facility] [employer] [facility] Address: [address] [address] [place] [address] [employer] MEDICARE ADVANTAGE [facility] Address: [address] [address] [place] [address] Care Teams Composite Mechanic Relationship Specialty Start Date End Date Dee Prince MD PCP - General Family Medicine 08/14/24
--- OUTSIDE RECORDS SUMMARY | 2025-05-14 13:03 | XMS_ITS | Encounter Summary ---
Author Organization [facility] Healthcare Address [address] [place] [address] Care Team Providers Care Rig Builder Helper Name Role Phone Dee Prince MD Primary Care Provider [phone] Reason for Referral * Diagnostic Imaging (Routine) - Authorized Specialty Diagnoses / Procedures Referred By Contac t Referred To Contact Diagnoses Renal artery stenosis Superior mesenteric artery stenosis Other specified symptoms and signs involving the circulatory and respiratory systems Procedures US JOHN Hayden Drummond MD [address] [facility] [address] [place] [address] Phone: tel: fax: [facility] at [address] [address] Phone: tel: fax: Referral ID Status Reason Start Date Expiration Date V isits Requested Visits Authorized [id number] Authorized 05/14/2025 06/13/2026 1 1 SEALING INSPECTOR * Diagnostic Imaging (Routine) - Authorized Specialty Diagnoses / Procedures Referred By Contac t Referred To Contact Diagnoses Renal artery stenosis Superior mesenteric artery stenosis Procedures US Duplex Scan Aorta, IVC Iliac Complete Hayden Drummond MD [address] [facility] [address] [place] [address] Phone: tel: fax: [facility] Ve[facility] Surgery at [address] [address] Phone: tel: fax: Referral ID Status Reason Start Date Expiration Date V isits Requested Visits Authorized [id number] Authorized 05/14/2025 06/13/2026 1 1 SEALING INSPECTOR Encounter Details Date Type Department Care Team (Late st Contact Info) Description 05/14/2025 Orders Only [facility] Vascular at [address] [place] [address] Hayden Drummond MD [address] [facility] [address] [address] Renal artery stenosis (Primary Dx); Superior mesenteric artery stenosis; Other specified symptoms and signs involving the circulatory and respiratory systems Social History Tobacco Use Types Packs/Day Years [...] on file Legal Sex Female 12:39 AM BOX SEALING INSPECTOR Gender Identity Not on file Sexual Orientation Not on file documented as of this encounter Plan of Treatment Scheduled Orders Name Type Priority Associated Diagnoses Orde r Schedule US Duplex Scan Aorta, IVC Iliac Complete Imaging Schedule Routine, Read Routine (OP Routine) Renal artery stenosis Superior mesenteric artery stenosis Expected: 06/04/2025, Expires: 11/11/2026 JOHN Imaging Schedule Routine , Read Routine (OP Routine) Renal artery stenosis Superior mesenteric artery stenosis Other specified symptoms and signs involving the circulatory and respiratory systems Expected: 06/04/2025, Expires: 11/11/2026 documented as of this encounter Visit Diagnoses Diagnosis Renal artery stenosis- Primary Atherosclerosis of renal artery Superior mesenteric artery stenosis Stricture of artery Other specified symptoms and signs involving the circulatory and respiratory systems documented in this encounter Care Teams Rig Builder Helper Relationship Specialty Start Date End Date Dee Prince MD PCP - General Family Medicine 08/14/24 documented as of this encounter
== END 2025-05-14 12:24 | disposition home or self-care (01) ==
PROVIDERS: PCP Student in an Organized Health Care Education/Training Program; Visit Provider Student in an Organized Health Care Education/Training Program
DX: R91.1 Solitary pulmonary nodule (principal)
CPT/HCPCS: 71250

== ENCOUNTER 2025-06-03 14:01 | Outpatient (CLI) | payer MEDICARE, SELFPAY ==
--- OUTSIDE RECORDS SUMMARY | 2025-06-03 08:15 | XMS_ITS | Encounter Summary ---
Author Organization [facility] Healthcare Address [address] [place] [address] Care Team Providers Care Product Management Manager Name Role Phone Dee Prince MD Primary Care Provider [phone] Reason for Visit * Reason Comments Follow-up 3 wk f/u - Renal Art mayo stenosisPVDHx: Rt Iliac stenting*CTA Abd done 04/23/25 @ [place] - images are in [facility] Encounter Details Date Type Department Care Team (Late st Contact Info) Description 06/03/2025 8:15 AM BORE MILL OPERATOR Office Visit [facility] Vascular at [address] [place] [address] Isabella Haq PA [address] [place] [address] [address] [place] [address] Peripheral artery disease (Primary Dx); Renal artery stenosis; Mesenteric artery stenosis Social History Tobacco Use Types [...] on file Legal Sex Female 12:39 AM BORE MILL OPERATOR Gender Identity Not on file Sexual Orientation Not on file documented as of this encounter Last Filed Vital Signs Vital Sign Reading Time Taken Comments Blood Pressure 153/55 06/03/2025 8:09 AM BORE MILL OPERATOR Pulse 54 06/03/2025 8:09 AM BORE MILL OPERATOR Temperature - - Respiratory Rate - - Oxygen Saturation 100% 06/03/2025 8:09 AM BORE MILL OPERATOR Inhaled Oxygen Concentration - - Weight 53.5 kg (118 lb) 06/03/2025 8:09 AM BORE MILL OPERATOR Height 162.6 cm (5' 4) 06/03/2025 8:09 AM BORE MILL OPERATOR Body Mass Index 20.25 06/03/2025 8:09 AM BORE MILL OPERATOR documented in this encounter Functional Status * BP Location Answer Date of Assessment Author Right arm 06/03/2025 8:09 AM BORE MILL OPERATOR Jose Juan Novoa MA * BP Location Answer Date of Assessment Author Right arm 06/03/2025 8:09 AM BORE MILL OPERATOR Gama Novoa MA documented as of this encounter Miscellaneous Notes * Assessment & Plan Note - Isabella Haq PA - 06/03/2025 8:58 AM BORE MILL OPERATOR Associated Problem(s): Mesenteric artery stenosis Seen on previous CTA and noninvasive testing, currently asymptomatic. Follow-up 6 months with repeat noninvasive testing. MILL OPERATOR MILL OPERATOR * Assessment & Plan Note - Isabella Haq PA - 06/03/2025 8:58 AM BORE MILL OPERATOR Associated Problem(s): Renal artery stenosis BP controlled on 1 antihypertensive. Patient does have bilateral renal artery stenosis seen on noninvasive testing. Will repeat imaging in 6 months MILL OPERATOR * Assessment & Plan Note - Isabella Haq PA - 06/03/2025 8:57 AM BORE MILL OPERATOR Associated Problem(s): Peripheral artery disease Case discussed with Dr. Hayden Drummond. Considering patient's normal JOHN, non limiting symptoms- Willhold on any further surgical procedure intervention at this time. Recommend walking regimen, continue aspirin. Follow up in the office in 6 months with repeat iliac duplex and JOHN MILL OPERATOR MILL OPERATOR documented in this encounter Plan of Treatment Not on file documented as of this encounter Visit Diagnoses Diagnosis Peripheral artery disease- Primary Renal artery stenosis Atherosclerosis of renal artery Mesenteric artery stenosis Stricture of artery documented in this encounter Care Teams Product Management Manager Relationship Specialty Start Date End Date Dee Prince MD PCP - General Family Medicine 08/14/24 documented as of this encounter
--- OUTSIDE RECORDS SUMMARY | 2025-06-03 13:30 | XMS_ITS | Encounter Summary ---
Author Organization [facility] Address [address] [place] [address] Care Team Providers Care Rubber Cutter And Shape Carver Name Role Phone Unavailable Primary Care Provider Unavailabl e Reason for Visit * Reason Comments Establish Care Encounter Details Date Type Department Care Team (Late st Contact Info) Description 06/03/2025 1:[address] PAINTER HELPER Office Visit [facility]ematology - [place] [address] [facility] [address] [address] [place] [address] Renaldo Nick MD [address] [facility] [address] [place] [address] Chronic anemia (Primary Dx) Social History Tobacco Use Types Packs/Day Years Used Date Smoking Tobacco: Former Cigarettes Smokeless Tobacco: Never Alcohol Use Standard Drinks/Week Comments Yes 0 (1 standard drink = 0.6 oz pur e alcohol) Occationally Comments Unknown Sex and Gender Information Value Date Recorded Sex Assigned at Not on file Legal Sex Female 4:12 PM CDT Gender Identity Not on file Sexual Orientation Not on file documented as of this encounter Last Filed Vital Signs Vital Sign Reading Time Taken Comments Blood Pressure 148/60 06/03/2025 1:[address] PAINTER HELPER Pulse 54 06/03/2025 1:[address] PAINTER HELPER Temperature 36.3 C (97.3 F) 06/03/2025 1:[address] PAINTER HELPER Respiratory Rate 16 06/03/2025 1:[address] PAINTER HELPER Oxygen Saturation 99% 06/03/2025 1:[address] PAINTER HELPER Inhaled Oxygen Concentration - - Weight 53.6 kg (118 lb 3.2 oz) 06/03/2025 1:[address] PAINTER HELPER Height - - Body Mass Index - - documented in this encounter Progress Notes * Renaldo Nick MD - 06/03/2025 2:18 PM CST Hematology-oncology consult Note Requesting Physician Primary Care Physician No primary care provider on file. Problem list There is no problem list on file for this patient. Previous TREATMENT ? Measurable Disease ? Reason for Visit Siobhan Solomon is a 79 y.o. female who was referred for consultation for chronic anemia. History of present illness This is a pleasant 79-year-old female with history of hypertension, hyperlipidemia and hypothyroidism along with anemia diagnosed in 2019 referred to me for persistent anemia. Her labs fromApril 2025 showed hemoglobin of 6.9 and received 1 unit of packed red blood cell. Previously she received 2 units of packed red blood cells in 2019 when she was originally diagnosed with anemia. Patient had EGD and colonoscopy done in March 2020 that showed internal hemorrhoids, diverticulosis without any bleeding and normal EGD. She is taking oral iron 325 mg once a day for the last 5 years duration. She denies any melena or hematochezia. Denies being a vegetarian. Denies any previous stomach surgeries. She has dark stools with iron supplement. She has lost 7 pound weight in last 6 months. Denies any other complaint other than tiredness and fatigue. Past Medical History Past Medical History: Diagnosis Date Emphysema of lung (CMS/HCC) Hepatitis A Hyperlipidemia Hypertension Malignant neoplasm (CMS/HCC) Tachycardia Surgical History Past Surgical History: Procedure Laterality Date HX SECTION HX CHOLECYSTECTOMY HX EAR SURGERY HX HYSTERECTOMY Medications Current Outpatient Medications Medication Sig Dispense Refill albuterol sulfate 90 mcg/Actuation inhaler INHALE 1 PUFF BY MOUTH EVERY 4 HOURS amLODIPine (NORVASC) 10 mg tablet Take 1 Tablet by mouth daily. buPROPion HCL (WELLBUTRIN XL) 150 mg Extended Release 24 hour tablet Take 150 mg by mouth daily in the morning. cholecalciferol, vitamin D3, 1,000 unit Take 1 Tablet by mouth daily. cyanocobalamin 1,000 mcg Tablet Take 1 Tablet by mouth daily. dorzolamide (TRUSOPT) 2 % solution Administer 1 Drop in both eyes 2 times daily. esomeprazole (NexIUM) 40 mg Capsule, Delayed Release(E.C.) Take 1 Capsule by mouth daily. ezetimibe (ZETIA) 10 mg tablet Take 1 Tablet by mouth daily. latanoprost (XALATAN) 0.005 % solution INSTILL ONE DROP INTO BOTH EYES AT BEDTIME. THIS IS REPLACING TIMOLOL levothyroxine 88 mcg tablet Take 1 Tablet by mouth daily. lisinopriL (PRINIVIL) 20 mg tablet Take 1 Tablet by mouth daily. rosuvastatin (CRESTOR) 20 mg tablet Take 1 Tablet by mouth daily. ferrous sulfate 325 mg (65 mg iron) tablet Take 325 mg by mouth daily. calcium as CARBONATE (CALTRATE) 1,500 mg (600 mg elemental) Tablet Take by mouth. No current facility-administered medications for this visit. Allergies Allergies Allergen Reactions Timolol Other (See Comments) Slows heart rate Immunizations: There is no immunization history on file for this patient. Family History Family History Problem Relation Name Age of Onset Heart Disease Father Cancer Mother Cancer Brother No Known Problems Brother Diabetes Sister Diabetes Sister No Known Problems Child No Known Problems Child No Known Problems Child No Known Problems Child Social History Social History Tobacco Use Smoking status: Former Types: Cigarettes Smokeless tobacco: Never Substance Use Topics Alcohol use: Yes Comment: Occationally Review of Systems Constitutional: Patient did not mention fever; no night sweats; no anorexia; 7 pound weight loss with complaint of tiredness and fatigue NEENT: Patient did not mention headache; no change in vision; no change in hearing; no sore throat;no dysphagia Respiratory: Patient did not mention shortness of breath; no pleuritic chest pain; no cough; no hemoptysis Cardiac: Patient did not mention cardiac-like chest pain; no palpitations; no orthopnea; no PND; noDOE Breasts: Patient did not mention tenderness; no masses GI: Patient did not mention abdominal pain; no nausea; no vomiting; no diarrhea; no hematochezia; no melena : Patient did not mention dysuria; no frequency; no hesitancy; no hematuria ENTRY LEVEL PROGRAMMER: Musculosketetal: Patient did not mention bone pain; no arthralgia; no joint swelling; no myalgia; Skin: Patient did not mention pruritis; no rash; no petechiae; no ecchymoses Endocrine: Patient did not mention polydipsia; no polyuria; no unusual weight gain Neuro: Patient did not mention headache; no change in vision; no sensory changes; no muscle weakness; no confusion; no seizures Psych: Patient did not mention anxiety; no depression; Physical Exam Vitals: As per nursing note Constitutional: Well developed, well nourished, no acute distress, non-toxic appearance Teeth and gum. No signs of infection or swelling. Eyes: PERRL, conjunctiva normal HEENT: Atraumatic, external ears normal, nose normal, oropharynx moist, no pharyngeal exudates. no sinus tenderness Neck- normal range of motion, no tenderness, supple Respiratory: No respiratory distress, normal breath sounds, no rales, no wheezing Cardiovascular: Normal rate, normal rhythm, no murmurs, no gallops, no rubs GI: Soft, nondistended, normal bowel sounds, nontender, no splenomegaly, no hepatomegaly, no mass, no rebound, no guarding : No costovertebral angle tenderness Musculoskeletal: No edema, no tenderness, no deformities. Back- no tenderness Integument: Well hydrated, no rash, Digits and nails inspection normal Lymphatic: No lymphadenopathy noted Neurologic: Alert & oriented x 3, CN 2-12 normal, normal motor function, normal sensory function, no focal deficits noted Psychiatric: Speech and behavior appropriate ? labs No results found for this or any previous visit (from the past 24 hours). Labs from May 2025 showed hemoglobin 8.8 WBC 5.6 MCV 88 platelet 286,000 iron 28 saturation 8%ferritin 24 Pathology ? Imaging & Other Studies Performance Status? Assessment / Plan: ? Iron deficiency anemia. Patient is a pleasant 79-year-old female with history of hypertension, hyperlipidemia and hypothyroidism referred to me for anemia going on for at least 5 years duration. She was diagnosed with iron deficiency anemia in March 2021 EGD and colonoscopy was performed that showed internal hemorrhoids, diverticulosis and EGD was normal. She denies any previous stomach surgeries. Denies being a vegetarian. She is taking oral iron once a day but remains quite anemic with iron deficient. I will repeat labs including CBC, CMP, iron profile, soluble transferrin receptor, vitamin B12 level and methylmalonic acid level. I will also check serum protein electrophoresis with immunofixation. She will continue oral iron supplement and add vitamin C 500 mg a day. I instructed her not to take iron supplement with the Nexium. Based on the lab results we will decide about iron infusion. She may also need repeat GI evaluation based on the repeat labs. I have answered all the questions to patient's satisfaction. Hypertension. Patient is on amlodipine and lisinopril. GERD. She is on Nexium. Hyperlipidemia. Patient is on Crestor. Hypothyroidism. She is on levothyroxine. Thank you very much for allowing me to participate in Siobhan Solomon's evaluation and management. Please feel free to contact if I can be of any further assistance in your patient???s care requiring hematology or oncology evaluation. Sincerely, ? ? Renaldo Nick M.D. cell TOBACCO COUNSELING She is not a tobacco/nicotine user. Renaldo Nick MD ,06/03/2025 2:18 PM ? Total time spent 60 minutes, two third of the total time spent counseling patient [id number]. CC:? WAY PAINTER HELPER documented in this encounter Plan of Treatment Upcoming Encounters Date Type Department Care Team (Late st Contact Info) Description 06/17/2025 4:[address] PAINTER HELPER Telephone Check Up [facility] - [place] [address] [place] [address] Renaldo Nick MD [address] [facility] [address] [place] [address] Scheduled Orders Name Type Priority Associated Diagnoses Orde r Schedule PROTEIN ELECTROPHORESIS W/REFLEX,SERUM Lab Routine Chronic anemia Expected: 06/03/2025, Expires: 06/03/2026 documented as of this encounter Visit Diagnoses Diagnosis Chronic anemia- Primary Anemia, unspecified documented in this encounter
--- OUTSIDE RECORDS SUMMARY | 2025-06-03 15:17 | XMS_ITS | Encounter Summary ---
Author Organization [facility] Address [address] [place] [address] Care Team Providers Care Customer Service Representative Name Role Phone Owen Andrews MD Primary Care Provider [phone] Encounter Details Date Type Department Care Team (Late st Contact Info) Description 06/15/2020 Ophth Exam [facility] [address] [place] [id number] Jennifer Hendricks MD No info available Social [...] on file Legal Sex Female 7:52 PM SENIOR GOVERNMENT PROGRAM ANALYST Gender Identity Not on file Sexual Orientation Not on file documented as of this encounter Plan of Treatment Not on file documented as of this encounter Visit Diagnoses Not on filedocumented in this encounter Care Teams Customer Service Representative Relationship Specialty Start Date End Date Owen Andrews MD [facility] [place] [address] PCP - General Family Medicine 06/13/20 documented as of this encounter
--- OUTSIDE RECORDS SUMMARY | 2025-06-03 15:17 | XMS_ITS | Encounter Summary ---
Author Organization [facility] Address [address] [facility] [place] [address] Care Team Providers Care Mechanical Unit Repairer Name Role Phone Owen Andrews MD Primary Care Provider [phone] Encounter Details Date Type Department Care Team (Late st Contact Info) Description 06/13/2020 Ophth Exam [facility] [address] [facility], [place] [id number] Heraclio Head MD [address] [place] [place] [address] [place] [address] Social History Tobacco Use Types Packs/Day Years [...] on file Legal Sex Female 7:52 PM DIRECTOR TELECOMMUNICATIONS Gender Identity Not on file Sexual Orientation Not on file documented as of this encounter Functional Status documented as of this encounter Plan of Treatment Not on file documented as of this encounter Visit Diagnoses Not on filedocumented in this encounter Care Teams Mechanical Unit Repairer Relationship Specialty Start Date End Date Owen Andrews MD [facility] [place] [address] PCP - General Family Medicine 06/13/20 documented as of this encounter
--- OUTSIDE RECORDS SUMMARY | 2025-06-03 15:17 | XMS_ITS | Clinical Summary ---
Author Organization [facility] Address [address] [facility] [place] [address] Care Team Providers Care Key Worker Name Role Phone Owen Andrews MD Primary Care Provider [phone] Source Comments [facility],non-owned Affiliates and Associated Physician Practices is amultiple site organization consisting of ambulatory clinics and hospital sitesin [place], [place], [place] and [place]. This disclosure is being madepursuant to the Care Everywhere program and may not contain all information available regarding this patient. 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 Aortic [...] on file Legal Sex Female 7:52 PM INFORMATION DELIVERY ANALYST Gender Identity Not on file Sexual Orientation Not on file Last Filed Vital Signs Vital Sign Reading Time Taken Comments Blood Pressure 150/62 07/05/2020 12:58 PM INFORMATION DELIVERY ANALYST Pulse 51 07/05/2020 12:58 PM INFORMATION DELIVERY ANALYST Temperature 36.8 C (98.2 F) 06/16/2020 8:04 AM INFORMATION DELIVERY ANALYST Respiratory Rate 18 06/16/2020 8:04 AM INFORMATION DELIVERY ANALYST Oxygen Saturation 100% 07/05/2020 12:58 PM INFORMATION DELIVERY ANALYST Inhaled Oxygen Concentration - - Weight 56.2 kg (124 lb) 07/05/2020 12:58 PM INFORMATION DELIVERY ANALYST Height 162.6 cm (5' 4) 07/05/2020 12:58 PM INFORMATION DELIVERY ANALYST Body Mass Index 21.28 07/05/2020 12:58 PM INFORMATION DELIVERY ANALYST Plan of Treatment Health Maintenance Due Date [...] CALENDAR YEAR 2024 COVID-19 VACCINE (1 - 2024-2 6 season) 2025 INFLUENZA VACCINE (#1) 2025 0, [...] 12:03 AM 06/16/2020 12:40 PM Care Teams Key Worker Relationship Specialty Start Date End Date Owen Andrews MD [address] [place] [address] [address] [place] [id number] PCP - General Family Medicine 06/13/20
--- OUTSIDE RECORDS SUMMARY | 2025-06-03 15:17 | XMS_ITS | Clinical Summary ---
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 Follow-up 6 months with repeat noninvasive testing. Renal artery stenosis 05/13/2025 Assessment & Plan (06/03/2025 8:58 AM PHOTO PRINT SPECIALIST): BP controlled on 1 antihypertensive. Patient does have bilateral renal artery stenosis seen on noninvasive testing. Will repeat imaging in 6 months Assessment & Plan (05/13/2025 9:48 AM PHOTO PRINT SPECIALIST): Renal and SMA stenosis mentioned on CTA abdomen pelvis while admitted at [facility] for anemia. I have requested the imaging and we will evaluate further. Coronary artery calcification seen on CAT scan 0 02/22/2024 Overview (02/22/2024): Incidental coronary artery calcifications noted on low-dose CT chest November 20, 2023 at [facility] [facility] Paroxysmal SVT (supraventricular tachycardia) Atherosclerosis of aorta 02/22/2024 Overview (02/22/2024): Incidental atherosclerosis of the thoracic aorta noted on low-dose CT chest November 20, 2023 at [facility] H/O tobacco use, presenting hazards to [...] Peripheral artery disease 05/12/2022 Assessment & Plan (06/03/2025 8:57 AM PHOTO PRINT SPECIALIST): Case discussed with Dr. Rain Drummond. Considering patient's normal JOHN, non limiting symptoms- Will hold on any further surgical procedure intervention at this time. Recommend walking regimen, continue aspirin. Follow up in the office in 6 months with repeat iliac duplex and JOHN Assessment & Plan (05/13/2025 9:46 AM PHOTO PRINT SPECIALIST): History of right iliac stenting done by [...] 05/12/2022 Assessment & Plan (05/13/2025 9:46 AM PHOTO PRINT SPECIALIST): Stable amlodipine Assessment & Plan (02/18/2024 6:28 PM CDT): Chronic. Controlled. Continue amlodipine and lisinopril Hyperlipidemia 05/12/2022 Assessment & Plan (05/13/2025 9:46 AM PHOTO PRINT SPECIALIST): Stable continue Crestor Assessment & Plan (02/18/2024 6:29 PM CDT): Chronic. controlled on last check. 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 Orders Only [facility] Vascular at [address] [address] Rain Drummond MD Renal artery stenosis (Primary Dx); Other specified symptoms and signs involving the circulatory and respiratory systems 05/29/2025 8:00 AM PHOTO PRINT SPECIALIST Ancillary Procedure [facility] Vascular and Vein Surgery at [address] [address] Renal artery stenosis; Superior mesenteric artery stenosis 05/29/2025 8:00 AM PHOTO PRINT SPECIALIST Ancillary Procedure [facility] Vascular and Vein Surgery at [address] [address] Renal artery stenosis; Superior mesenteric artery stenosis; Other specified symptoms and signs involving the circulatory and respiratory systems 05/14/2025 Orders Only [facility] Vascular at [address] [address] Rain Drummond MD Renal artery stenosis (Primary Dx); Superior mesenteric artery stenosis; Other specified symptoms and signs involving the circulatory and respiratory systems 05/13/2025 9:00 AM PHOTO PRINT SPECIALIST Office Visit [facility] Vascular at [address] [place] [address] Rain Drummond MD Peripheral artery disease (Primary Dx); Primary hypertension; Mixed hyperlipidemia; Renal artery stenosis 04/23/2025 8:00 AM CDT - 04/23/2025 11:59 PM CDT Hospital Encounter [facility] [employer] [address] [facility] [place] [address] Discharge Disposition: Discharge to home or self care 03/23/2025 1:00 PM CDT Office Visit [facility] Cardiology [address] [place] [address] Esha Diallo NP Coronary artery calcification seen [...] Comments ESOPHAGOGASTRODUODENOSCOPY COLONOSCOPY BREAST SURGERY 2007 SECTION [id number] CHOLECYSTECTOMY 1995 Medical History Medical History Date [...] on file Legal Sex Female 12:39 AM PHOTO PRINT SPECIALIST Gender Identity Not on file Sexual Orientation Not on file Last Filed Vital Signs Vital Sign Reading Time Taken Comments Blood Pressure 153/55 06/03/2025 8:09 AM PHOTO PRINT SPECIALIST Pulse 54 06/03/2025 8:09 AM PHOTO PRINT SPECIALIST Temperature 36.9 C (98.5 F) 02/18/2024 9:47 AM CDT Respiratory Rate 16 02/18/2024 9:47 AM CDT Oxygen Saturation 100% 06/03/2025 8:09 AM PHOTO PRINT SPECIALIST Inhaled Oxygen Concentration - - Weight 53.5 kg (118 lb) 06/03/2025 8:09 AM PHOTO PRINT SPECIALIST Height 162.6 cm (5' 4) 06/03/2025 8:09 AM PHOTO PRINT SPECIALIST Body Mass Index 20.25 06/03/2025 8:09 AM PHOTO PRINT SPECIALIST Plan of Treatment Health Maintenance Due [...] Procedure Name Priority Date/Time Associated Diagnosis Comments US DUPLEX SCAN AORTA, IVC ILIAC COMPLETE Schedule Routine, Read Routine (OP Routine) 05/29/2025 8:46 AM PHOTO PRINT SPECIALIST Renal artery stenosis Superior mesenteric artery stenosis US JOHN Schedule Routine, Read Routine (OP Routine) 05/29/2025 8:46 AM PHOTO PRINT SPECIALIST Renal artery stenosis Superior mesenteric artery stenosis Other specified symptoms and signs involving the circulatory and respiratory systems CT BODY OUTSIDE REFERENCE Routine 04/23/2025 8:00 AM CDT LUNG CANCER SCREENING Routine 02/22/2024 3:27 PM CDT from Last 3 Months or Most Recently Relevant to Health Maintenance Results * US Duplex Scan Aorta, IVC Iliac Complete (05/29/2025 8:46 AM PHOTO PRINT SPECIALIST) Anatomical Region Laterality Modality Vascular N/A Ultrasound 05/29/2025 8:10 AM PHOTO PRINT SPECIALIST Narrative 05/30/2025 12:39 PM PHOTO PRINT SPECIALIST Vascular & Vein Surgery [address] [facility] [place] [address] Abdominal Aortic Duplex Ultrasound Report Patient Name: HOLLY SOLOMON : 1945 Study Date: 05/29/2025 8:10:20 AM Sex: F Project Management Director: Location: [facility] Ref Provider: RAIN DRUMMOND Quality: Adequate Order Provider: RAIN DRUMMOND PROCEDURES: Arterial Report: Duplex ultrasound imaging of the abdominal aorta. INDICATIONS: Hx stent RCIA ~2020 (Dr. Taylor). HISTORY: HTN. HLD. Current smoker. COMPARISONS: Prior CTA 04/23/25: severe stenosis SMA, moderate stenosis RRA, severe stenosis LRA. MEASUREMENTS: Velocities Value Diameters Value Aorta Prx PSV 85.00 cm/sec Aorta Prx AP Dim 2.25 cm Aorta Mid PSV 96.00 cm/sec Aorta Prx Trans Dim 2.11 cm Aorta Dst PSV 116.00 cm/sec Aorta Mid AP Dim 2.10 cm Rt Ext Iliac Prx PSV 172.00 cm/sec Aorta Mid Trans Dim 1.78 cm Rt Ext Iliac Dst PSV 156.00 cm/sec Aorta Dst AP Dim 1.43 cm Lt Com Iliac Prx PSV 199.00 cm/sec Aorta Dst Trans Dim 1.25 cm Lt Com Iliac Dst PSV 225.00 cm/sec Rt Com Iliac Prx AP Dim 0.69 cm Lt Ext Iliac Prx PSV 164.00 cm/sec Rt Com Iliac Prx Trans Dim 0.60 cm Lt Ext Iliac Dst PSV 143.00 cm/sec Lt Com Iliac Prx AP Dim 0.81 cm Lt Com Iliac Prx Trans Dim 0.72 cm STENTS: Velocities Value Location RCIA Stent Prx PSV 143.00 cm/sec Stent Mid PSV 243.00 cm/sec Stent Dst PSV 196.00 cm/sec Stent Samish Outflow PSV 329.00 cm/sec FINDINGS: Study Quality: Adequate. Abdominal Aorta: Normal diameter. Atherosclerotic plaque noted. Elevated PSV 225 cm/s noted at left common iliac artery. Elevated PSV 243 cm/s noted within right common iliac artery stent and PSV 329 cm/s noted at outflow of stent. Limited visualization of proximal/mid right external iliac artery due to overlying bowel. Additional findings: Elevated PSV 741/70 cm/s noted at superior mesenteric artery. Elevated PSV 257/27 cm/s noted at right renal artery. Elevated PSV 301/19 cm/s noted at left renal artery. CONCLUSIONS: 1. Findings suggest 50-75% stenosis of the Left Common Iliac Artery. 2. Right common iliac artery stent with evidence of InStent stenosis Superior mesenteric artery with a greater than 70% stenosis. Right renal artery with greater than 60% stenosis. Left renal artery with greater than 60% stenosis. ATTESTATION: I have reviewed and interpreted the pertinent images and measurements of this study. I attest to the conclusions in the final report that is provided above. Electronically Signed By: Rain Drummond MD 05/30/2025 11:44:47 AM PHOTO PRINT SPECIALIST Procedure Note Rain Drummond MD - 05/30/2025 Vascular & Vein Surgery [address] [place] [address]. [place] [address] Abdominal Aortic Duplex Ultrasound Report Patient Name: HOLLY SOLOMON : 1945 Study Date: 05/29/2025 8:10:20 AM Sex: F Project Management Director: Location: [facility] Ref Provider: RAIN DRUMMOND Quality: Adequate Order Provider: RAIN DRUMMOND PROCEDURES: Arterial Report: Duplex ultrasound imaging of the abdominal aorta. INDICATIONS: Hx stent RCIA ~2020 (Dr. Taylor). HISTORY: HTN. HLD. Current smoker. COMPARISONS: Prior CTA 04/23/25: severe stenosis SMA, moderate stenosis RRA, severestenosis LRA. MEASUREMENTS: Velocities Value Diameters Value Aorta Prx PSV 85.00 cm/sec Aorta Prx AP Dim 2.25 cm Aorta Mid PSV 96.00 cm/sec Aorta Prx Trans Dim 2.11 cm Aorta Dst PSV 116.00 cm/sec Aorta Mid AP Dim 2.10 cm Rt Ext Iliac Prx PSV 172.00 cm/sec Aorta Mid Trans Dim 1.78 cm Rt Ext Iliac Dst PSV 156.00 cm/sec Aorta Dst AP Dim 1.43 cm Lt Com Iliac Prx PSV 199.00 cm/sec Aorta Dst Trans Dim 1.25 cm Lt Com Iliac Dst PSV 225.00 cm/sec Rt Com Iliac Prx AP Dim 0.69 cm Lt Ext Iliac Prx PSV 164.00 cm/sec Rt Com Iliac Prx Trans Dim 0.60 cm Lt Ext Iliac Dst PSV 143.00 cm/sec Lt Com Iliac Prx AP Dim 0.81 cm Lt Com Iliac Prx Trans Dim 0.72 cm STENTS: Velocities Value Location RCIA Stent Prx PSV 143.00 cm/sec Stent Mid PSV 243.00 cm/sec Stent Dst PSV 196.00 cm/sec Stent Samish Outflow PSV 329.00 cm/sec FINDINGS: Study Quality: Adequate. Abdominal Aorta: Normal diameter. Atherosclerotic plaque noted. Elevated PSV 225 cm/s notedat left common iliac artery. Elevated PSV 243 cm/s noted within right common iliac arterystent and PSV 329 cm/s noted at outflow of stent. Limited visualization of proximal/midright external iliac artery due to overlying bowel. Additional findings: Elevated PSV 741/70 cm/s noted at superior mesentericartery. Elevated PSV 257/27 cm/s noted at right renal artery. Elevated PSV 301/19cm/s noted at left renal artery. CONCLUSIONS: 1. Findings suggest 50-75% stenosis of the Left Common Iliac Artery. 2. Right common iliac artery stent with evidence of InStent stenosis Superior mesenteric artery with a greater than 70% stenosis. Right renalartery with greater than 60% stenosis. Left renal artery with greater than 60%stenosis. ATTESTATION: I have reviewed and interpreted the pertinent images and measurements ofthis study. I attest to the conclusions in the final report that is provided above. Electronically Signed By: Rain Drummond MD 05/30/2025 11:44:47 AM PHOTO PRINT SPECIALIST us Rain Drummond MD IMG US PROCEDURES Final Result * US JOHN (05/29/2025 8:46 AM PHOTO PRINT SPECIALIST) Anatomical Region Laterality Modality Vascular N/A Ultrasound 05/29/2025 7:55 AM PHOTO PRINT SPECIALIST Narrative 05/30/2025 12:39 PM PHOTO PRINT SPECIALIST Vascular & Vein Surgery [address] [facility] [place] [address] Lower Extremity Arterial Doppler Report Patient Name: HOLLY SOLOMON : 1945 Study Date: 05/29/2025 7:55:00 AM Sex: F Project Management Director: Rosa Guerra RVT Location: [facility] Ref Provider: RAIN DRUMMOND Quality: Adequate Order Provider: RAIN DRUMMOND PROCEDURES: Arterial Report: Ankle - Brachial Index Doppler exam. INDICATIONS: Hx stent RCIA ~2020 (Dr. Taylor) - HISTORY: HTN. HLD. Current smoker. COMPARISONS: No previous exams. MEASUREMENTS: Right Value Left Value Rt Brachial Pressure 180 mmHg Lt Brachial Pressure 173 mmHg Rt MEDICAL STAFFING COORDINATOR Pressure 190 mmHg Lt MEDICAL STAFFING COORDINATOR Pressure 184 mmHg Rt DPA Pressure 184 mmHg Lt DPA Pressure 174 mmHg Rt PT JOHN Resting 1.06 Lt PT JOHN Resting 1.02 Rt DP JOHN Resting 1.02 Lt DP JOHN Resting 0.97 FINDINGS: Right Posterior Tibial Artery Analysis: The posterior tibial waveform is triphasic. Right Anterior Tibial Artery Analysis: The anterior tibial waveform is triphasic. Left Posterior Tibial Artery Analysis: The posterior tibial waveform is triphasic. Left Anterior Tibial Artery Analysis: The anterior tibial waveform is triphasic. CONCLUSIONS: 1. Ankle-brachial index of 0.9-1.3 is within normal limits in the bilateral lower extremities. ATTESTATION: I have reviewed and interpreted the pertinent images and measurements of this study. I attest to the conclusions in the final report that is provided above. Electronically Signed By: Rain Drummond MD 05/30/2025 11:45:01 AM PHOTO PRINT SPECIALIST Procedure Note Rain Drummond MD - 05/30/2025 Vascular & Vein Surgery [address] [place] [address] Lower Extremity Arterial Doppler Report Patient Name: HOLLY SOLOMON : 1945 Study Date: 05/29/2025 7:55:00 AM Sex: F Project Management Director: Rosa Guerra RVT Location: [facility] Ref Provider: RAIN DRUMMOND Quality: Adequate Order Provider: RAIN DRUMMOND PROCEDURES: Arterial Report: Ankle - Brachial Index Doppler exam. INDICATIONS: Hx stent RCIA ~2019 (Dr. Taylor) - HISTORY: HTN. HLD. Current smoker. COMPARISONS: No previous exams. MEASUREMENTS: Right Value Left Value Rt Brachial Pressure 180 mmHg Lt Brachial Pressure 173 mmHg Rt MEDICAL STAFFING COORDINATOR Pressure 190 mmHg Lt MEDICAL STAFFING COORDINATOR Pressure 184 mmHg Rt DPA Pressure 184 mmHg Lt DPA Pressure 174 mmHg Rt PT JOHN Resting 1.06 Lt PT JOHN Resting 1.02 Rt DP JOHN Resting 1.02 Lt DP JOHN Resting 0.97 FINDINGS: Right Posterior Tibial Artery Analysis: The posterior tibial waveform is triphasic. Right Anterior Tibial Artery Analysis: The anterior tibial waveform is triphasic. Left Posterior Tibial Artery Analysis: The posterior tibial waveform is triphasic. Left Anterior Tibial Artery Analysis: The anterior tibial waveform is triphasic. CONCLUSIONS: 1. Ankle-brachial index of 0.9-1.3 is within normal limits in thebilateral lower extremities. ATTESTATION: I have reviewed and interpreted the pertinent images and measurements ofthis study. I attest to the conclusions in the final report that is provided above. Electronically Signed By: Rain Drummond MD 05/30/2025 11:45:01 AM PHOTO PRINT SPECIALIST Rain Drummond MD IMG US PROCEDURES Final Result * CT Body Outside Reference (04/23/2025 8:00 AM CDT) Narrative [id number] - 05/20/2025 8:09 AM PHOTO PRINT SPECIALIST This order has been auto-finalized and does not contain a result. Provider Transcribed Order IMG CT PROCEDURES Fin al Result [id number] * LUNG CANCER SCREENING (02/22/2024 3:27 PM CDT) Scribed Lung Cancer Screening Normal Historical Provider HEALTH MAINTENANCE Final Result from Last 3 Months or Most Recently Relevant to Health Maintenance Insurance UHC MEDICARE ADVANTAGE UHC MEDICARE ADVANTAGE Care Teams Portfolio Director Relationship Specialty Start Date End Date Dee Prince MD PCP - General Family Medicine 08/14/24
--- OUTSIDE RECORDS SUMMARY | 2025-06-03 15:17 | XMS_ITS | Clinical Summary ---
Author Organization [facility] Bhupendra Jiang Address [address] [place] [address] Care Team Providers Care Laser Operator Name Role Phone Unavailable Primary Care Provider Unavailabl e Allergies Active Allergy Reactions Criticality Noted Date Comments Timolol Other (See Comments) Low 06/03/2025 Slows heart rate Medications albuterol sulfate 90 mcg/Actuation inhaler INHALE 1 PUFF BY MOUTH EVERY 4 HOURS 5 Active amLODIPine (NORVASC) 10 mg tablet Take 1 Tablet by mouth daily. 5 Active buPROPion HCL (WELLBUTRIN XL) 150 mg Extended Release 24 hour tablet Take 150 mg by mouth daily in the morning. 5 Active cholecalciferol , vitamin D3, 1,000 unit Take 1 Tablet by mouth daily. 5 Active cyanocobalamin 1,000 mcg Tablet Take 1 Tablet by mouth daily. 5 Active dorzolamide (TRUSOPT) 2 % solution Administer 1 Drop in both eyes 2 times daily. 5 Active esomeprazole (NexIUM) 40 mg Capsule, Delayed Release(E.C.) Take 1 Capsule by mouth daily. 5 Active ezetimibe (ZETIA) 10 mg tablet Take 1 Tablet by mouth daily. 5 Active latanoprost (XALATAN) 0.005 % solution INSTILL ONE DROP INTO BOTH EYES AT BEDTIME. THIS IS REPLACING TIMOLOL 5 Active levothyroxine 88 mcg tablet Take 1 Tablet by mouth daily. 5 Active lisinopriL (PRINIVIL) 20 mg tablet Take 1 Tablet by mouth daily. Active rosuvastatin (CRESTOR) 20 mg tablet Take 1 Tablet by mouth daily. Active ferrous sulfate 325 mg (65 mg iron) tablet Take 325 mg by mouth daily. Active calcium as CARBONATE (CALTRATE) 1,500 mg (600 mg elemental) Tablet Take by mouth. Activ e Active Problems No known active problems Encounters Date Type Department Care Team Description 06/03/2025 1:30 PM BARN WORKER Office Visit [facility] Oncology and Hematology - [place] [address] [place] [address] Renaldo Nick MD Chronic anemia (Primary Dx) from Last 3 Months Family History Medical History Relation Name Comments Cancer Brother 1 No Known Problems Brother 2 No Known Problems Child 1 No Known Problems Child 2 No Known Problems Child 3 No Known Problems Child 4 Heart Disease Father Cancer Mother Diabetes Sister 1 Diabetes Sister 2 Relation Name Status Comments Brother 1 Brother 2 Alive Child 1 Child 2 Alive Child 3 Alive Child 4 Alive Father Mother Sister 1 Alive Sister 2 Alive Social History Tobacco Use Types Packs/Day [...] Comments Blood Pressure 148/60 06/03/2025 1:28 PM BARN WORKER Pulse 54 06/03/2025 1:25 PM BARN WORKER Temperature 36.3 C (97.3 F) 06/03/2025 1:25 PM BARN WORKER Respiratory Rate 16 06/03/2025 1:25 PM BARN WORKER Oxygen Saturation 99% 06/03/2025 1:25 PM BARN WORKER Inhaled Oxygen Concentration - - Weight 53.6 kg (118 lb 3.2 oz) 06/03/2025 1:25 P M BARN WORKER Height - - Body Mass Index - - Plan of Treatment Upcoming Encounters Date Type Department Care Team (Late st Contact Info) Description 06/17/2025 4:30 PM BARN WORKER Telephone Check Up [facility] Oncology and Hematology - [place] [address] [place] [address] Renaldo Nick MD [address] [facility] [address] [place] [address] Health Maintenance Due Date Last Done Comments DTAP/TDAP/TD VACCINES (1 - Tdap) 1965 PNEUMOCOCCAL VACCINE 50+ YEARS (1 of 1 - PCV) 06/05/19 96 ZOSTER VACCINE (1 of 2) 1996 OSTEOPOROSIS SCREENING 2011 RSV VACCINE (60+ or ) (1 - 1-dose 75+ series) 2021 Medicare [place] ([place]) Prev entative Visit/Annual Wellness Visit 07/02/2024 INFLUENZA VACCINE (#1) 2025 Insurance [facility] [id number]
--- OUTSIDE RECORDS SUMMARY | 2025-06-03 15:17 | XMS_ITS | Encounter Summary ---
Author Organization [facility] Healthcare Address [address] [place] [address] Care Team Providers Care Land Development Project Manager Name Role Phone Dee Prince MD Primary Care Provider [phone] Reason for Referral * Diagnostic Imaging (Routine) - Authorized Specialty Diagnoses / Procedures Referred By Contac t Referred To Contact Diagnoses Renal artery stenosis Other specified symptoms and signs involving the circulatory and respiratory systems Procedures US Duplex Scan Aorta, IVC Iliac Complete Hayden Drummond MD [address] [place] [address] [place] [address] Phone: tel: fax: [facility] Vascular and Vein Surgery at [address] [address] Phone: tel: fax: Referral ID Status Reason Start Date Expiration Date V isits Requested Visits Authorized [id number] Authorized 06/03/2025 07/03/2026 1 1 GATION SECRETARY * Diagnostic Imaging (Routine) - Authorized Specialty Diagnoses / Procedures Referred By Contac t Referred To Contact Diagnoses Renal artery stenosis Procedures US Doppler Abdominal Vessels Hayden Jj MD [address] [place] [address] [place] [address] Phone: tel: fax: [facility] Medical [facility] Vascular and Vein Surgery at [address] [address] Phone: tel: fax: Referral ID Status Reason Start Date Expiration Date V isits Requested Visits Authorized [id number] Authorized 06/03/2025 07/03/2026 1 1 GATION SECRETARY * Diagnostic Imaging (Routine) - Authorized Specialty Diagnoses / Procedures Referred By Contac t Referred To Contact Diagnoses Renal artery stenosis Other specified symptoms and signs involving the circulatory and respiratory systems Procedures US [facility] Hayden Drummond MD [address] [place] [address] [place] [address] Phone: tel: fax: [facility] Vascular and Vein Surgery at [address] [address] Phone: tel: fax: Referral ID Status Reason Start Date Expiration Date V isits Requested Visits Authorized [id number] Authorized 06/03/2025 07/03/2026 1 1 GATION SECRETARY Encounter Details Date Type Department Care Team (Late st Contact Info) Description 06/03/2025 Orders Only [facility] Vascular at [address] [address] Hayden Drummond MD [address] [place] [address] [place] [id number] Renal artery stenosis (Primary Dx); Other specified [...] on file Legal Sex Female 12:39 AM LITIGATION SECRETARY Gender Identity Not on file Sexual Orientation Not on file documented as of this encounter Functional Status * BP Location Answer Date of Assessment Author Right arm 06/03/2025 8:09 AM LITIGATION SECRETARY Jose Juan Novoa MA * BP Location Answer Date of Assessment Author Right arm 06/03/2025 8:09 AM LITIGATION SECRETARY Jose Juan Novoa MA documented as of this encounter Plan of Treatment Scheduled Orders Name Type Priority Associated Diagnoses Orde r Schedule US JOHN Imaging Schedule Routine , Read Routine (OP Routine) Renal artery stenosis Other specified symptoms and signs involving the circulatory and respiratory systems Expected: 12/02/2025, Expires: 12/02/2026 US Doppler Abdominal Vessels Complete Imaging Schedule Routine, Read Routine (OP Routine) Renal artery stenosis Expected: 12/02/2025, Expires: 12/02/2026 US Duplex Scan Aorta, IVC Iliac Complete Imaging Schedule Routine, Read Routine (OP Routine) Renal artery stenosis Other specified symptoms and signs involving the circulatory and respiratory systems Expected: 12/02/2025, Expires: 12/02/2026 documented as of this encounter Visit Diagnoses Diagnosis Renal artery stenosis- Primary Atherosclerosis of renal artery Other specified symptoms and signs involving the circulatory and respiratory systems documented in this encounter Care Teams Land Development Project Manager Relationship Specialty Start Date End Date Dee Prince MD PCP - General Family Medicine 08/14/24 documented as of this encounter
--- OUTSIDE RECORDS SUMMARY | 2025-06-03 15:17 | XMS_ITS | Clinical Summary ---
Author Organization [facility] Address Formerly [facility], later [facility] [place] [address] Care Team Providers Care Seasoner Name Role Phone Owen Stephenson MD Primary Care Provider [phone] James Vasquez MD Unavailable Allergies No known [...] Comments Blood Pressure 158/60 05/30/2018 8:02 AM OUTSOLE BEVELER Pulse 65 05/30/2018 8:02 AM OUTSOLE BEVELER Temperature - - Respiratory Rate - - Oxygen Saturation - - Inhaled Oxygen Concentration - - Weight 59.4 kg (131 lb) 05/30/2018 8:02 AM OUTSOLE BEVELER Height 162.6 cm (5' 4) 05/30/2018 8:02 AM OUTSOLE BEVELER Body Mass Index 22.49 05/30/2018 8:02 AM OUTSOLE BEVELER Plan of Treatment Health Maintenance Due Date [...] complete this topic Insurance MEDICARE Care Teams Seasoner Relationship Specialty Start Date End Date Owen Stephenson MD [address] [place] [address] PCP - General FAMILY PRACTICE 04/25/18 James Vasquez MD [address] [address] Referring Physician VASCULAR SURGERY 04/25/18
[2025-06-04 13:08] LABS: Albumin 3.8 g/dL (2.9-4.4); Alpha-1-Globulin 0.3 g/dL (0.0-0.4); Alpha-2-Globulin 0.7 g/dL (0.4-1.0); Gamma Globulin 0.8 g/dL (0.4-1.8)
== END 2025-06-03 14:02 | disposition home or self-care (01) ==
LOC: ANHLAB 14:02
PROVIDERS: PCP Student in an Organized Health Care Education/Training Program; Visit Provider Internal Medicine Hematology & Oncology
DX: D64.9 Anemia, unspecified (principal)
CPT/HCPCS: 84155; 84165